=== PATIENT | male | born 1955 | race Caucasian/White ===

== ENCOUNTER 2018-01-10 17:37 | Inpatient (IN) ==
[2018-01-10] MEDS ORDERED: ACETAMINOPHEN 325 MG TABLET PO PRN (18:24)
[2018-01-10] MEDS ORDERED: ONDANSETRON 4 MG/2 ML VIAL IV PRN (18:24)
[2018-01-10] MEDS ORDERED: HEPARIN DRIP 25,000 UNITS/500 ML PREMIX IV SCH (19:30)
[2018-01-10] MEDS ORDERED: MAGNESIUM HYDROXIDE SUSP 30 ML UDCUP PO PRN (20:40)
[2018-01-10 20:58] LABS: Alanine Aminotransferase 16 U/L (16-61); Albumin 2.5 G/DL (3.4-5.0); Alkaline Phosphatase 39 U/L (45-117); Aspartate Amino Transferase 5 U/L (0-37); Bilirubin,Total < 0.39 MG/DL (0.2-1.0); Blood Urea Nitrogen 19 MG/DL (7-18); Calcium 7.8 MG/DL (8.5-10.1); Glucose 353 MG/DL (74-106); Osmolality,Calculated 288.8 MOS/KG (273-304); Potassium 3.8 MMOL/L (3.5-5.1); Sodium 137 MMOL/L (136-145); Total Protein 6.6 G/DL (6.4-8.3)
[2018-01-10 21:01] LABS: Basophils % 0.2 % (0.0-0.8); Eosinophils # 0.1 10*3/uL (0.0-0.87); Eosinophils % 0.6 % (0.00-10.9); Hematocrit 20.6 VOL% (42.0-52.0); Hemoglobin 6.6 GM/DL (14.0-18.0); Immature Granulocytes % 11.6 %; Immature Granulocytes Absolute 1.39 #; Lymphocytes # 2.1 10*3/uL (1.4-4.0); Lymphocytes % 17.3 % (21.2-54.2); Mean Corpuscular Hemoglobin 36 PG (27-34); Mean Corpuscular Volume 110.8 FL (87-102); Monocytes # 1.3 10*3/uL (0.11-0.8); Monocytes % 10.8 % (1.7-12.7); NRBC # 0.05 10*3/uL; Neutrophils # 7.2 10*3/uL (1.4-7.4); Neutrophils % 59.5 % (38.7-73.9); Platelet Count 75 T/CUMM (130-400); Red Blood Count 1.86 MC/CUMM (3.8-5.5); Red Cell Distribution Width 21.1 % (9.3-17.3)
[2018-01-11 02:42] LABS: Basophils % 0.2 % (0.0-0.8); Eosinophils # 0.1 10*3/uL (0.0-0.87); Eosinophils % 0.8 % (0.00-10.9); Hematocrit 21.9 VOL% (42.0-52.0); Hemoglobin 7.1 GM/DL (14.0-18.0); Immature Granulocytes % 11.8 %; Immature Granulocytes Absolute 1.53 #; Lymphocytes # 2.5 10*3/uL (1.4-4.0); Lymphocytes % 19.1 % (21.2-54.2); Mean Corpuscular HGB Conc 32.4 GM/DL (32-36); Mean Corpuscular Hemoglobin 34 PG (27-34); Mean Corpuscular Volume 104.3 FL (87-102); Mean Platelet Volume 13.1 FL (9.6-12.0); Monocytes # 1.3 10*3/uL (0.11-0.8); Monocytes % 10.2 % (1.7-12.7); NRBC # 0.03 10*3/uL; Neutrophils # 7.5 10*3/uL (1.4-7.4); Neutrophils % 57.9 % (38.7-73.9); Platelet Count 75 T/CUMM (130-400)
[2018-01-11 03:16] LABS: Band Neutrophils 8 % (0-10); Lymphocytes 20 % (20-55); Metamyelocytes 11 %; Myelocytes 3 %; Nucleated Red Blood Cells 1 (0-5); Segmented Neutrophils 51 % (50-85); Total Cells Counted 100
[2018-01-11 03:17] LABS: Platelet Estimate Decreased
[2018-01-11 05:36] LABS: Band Neutrophils 8 % (0-10); Eosinophils 1 % (0-10); Hypochromasia 2+; Lymphocytes 17 % (20-55); Metamyelocytes 7 %; Myelocytes 2 %; Nucleated Red Blood Cells 1 (0-5); Platelet Estimate Decreased; Promyelocytes 1 %; Segmented Neutrophils 55 % (50-85); Total Cells Counted 100
[2018-01-11 05:37] LABS: Anisocytosis 2+; Macrocytosis 2+; Ovalocytes 1+; Polychromasia Few
[2018-01-11 09:19] LABS: INR 1.1
[2018-01-11] MEDS ORDERED: HEPARIN 5,000 UNIT/1 ML VIAL ONE (09:49)
[2018-01-11] MEDS: PANTOPRAZOLE 40 MG TABLET PO SCH (10:12)
[2018-01-11] MEDS ORDERED: SODIUM CHLORIDE 0.9% 1,000 ML IV PRN (16:08)
[2018-01-11] MEDS ORDERED: traMADol 50 MG TABLET PO PRN (16:11)
[2018-01-11] MEDS: RIVAROXABAN 15 MG TABLET PO SCH (17:33)
[2018-01-12] MEDS: RIVAROXABAN 15 MG TABLET PO SCH (09:25)
[2018-01-12] MEDS: PANTOPRAZOLE 40 MG TABLET PO SCH (09:25)
[2018-01-12 09:44] LABS: Basophils % 0.3 % (0.0-0.8); Eosinophils # 0.1 10*3/uL (0.0-0.87); Eosinophils % 0.9 % (0.00-10.9); Hematocrit 26.9 VOL% (42.0-52.0); Hemoglobin 8.6 GM/DL (14.0-18.0); Immature Granulocytes % 12.6 %; Immature Granulocytes Absolute 1.42 #; Lymphocytes # 1.6 10*3/uL (1.4-4.0); Lymphocytes % 13.9 % (21.2-54.2); Mean Corpuscular Hemoglobin 33 PG (27-34); Mean Corpuscular Volume 102.7 FL (87-102); Mean Platelet Volume 12.6 FL (9.6-12.0); Monocytes # 1.5 10*3/uL (0.11-0.8); Monocytes % 13.5 % (1.7-12.7); NRBC # 0.02 10*3/uL; Neutrophils # 6.6 10*3/uL (1.4-7.4); Neutrophils % 58.8 % (38.7-73.9); Platelet Count 86 T/CUMM (130-400); Red Blood Count 2.62 MC/CUMM (3.8-5.5); Red Cell Distribution Width 24.5 % (9.3-17.3); White Blood Count 11.2 T/CUMM (4-12)
[2018-01-12 11:49] LABS: Band Neutrophils 1 % (0-10); Lymphocytes 16 % (20-55); Segmented Neutrophils 59 % (50-85); Total Cells Counted 100
[2018-01-12 11:50] LABS: Platelet Estimate Decreased; Polychromasia Slight
[2018-01-12 12:23] VITALS: BP 142/77
== END 2018-01-12 12:48 | disposition home or self-care (01) | DRG 176 ==
LOC: SUATTDRO 17:40 → N.4E 17:40
PROVIDERS: ADMIT Internal Medicine; ATTEND Internal Medicine

== ENCOUNTER 2018-01-21 13:33 | Inpatient (IN) ==
[2018-01-21] MEDS ORDERED: MORPHINE 4 MG/1 ML VIAL IV STA (13:51)
[2018-01-21] MEDS ORDERED: HEPARIN 5,000 UNIT/1 ML VIAL IV ONE (13:51)
[2018-01-21] MEDS ORDERED: NITROGLYCERIN 2% OINT 1 INCH/GM PACK TOP STA (13:51)
[2018-01-21] MEDS ORDERED: ONDANSETRON 4 MG/2 ML VIAL IV STA (13:51)
[2018-01-21] MEDS ORDERED: ASPIRIN 325 MG TABLET PO STA (13:51)
[2018-01-21] MEDS ORDERED: NITROGLYCERIN 2% OINT 1 INCH/GM PACK TOP ONE (13:52)
[2018-01-21] MEDS ORDERED: ONDANSETRON 4 MG/2 ML VIAL ONE (13:52)
[2018-01-21] MEDS ORDERED: MORPHINE 4 MG/1 ML VIAL ONE (13:53)
[2018-01-21] MEDS ORDERED: fentaNYL 100 MCG/2 ML VIAL ONE (14:02)
[2018-01-21] MEDS ORDERED: LIDOCAINE 1% 20 ML VIAL ONE (14:02)
[2018-01-21] MEDS ORDERED: MIDAZOLAM 2 MG/2 ML VIAL ONE (14:02)
[2018-01-21 14:25] LABS: Basophils # 0.1 10*3/uL (0.0-0.2); Basophils % 0.4 % (0.0-0.8); Eosinophils # 0.1 10*3/uL (0.0-0.87); Eosinophils % 0.2 % (0.00-10.9); Hematocrit 27.3 VOL% (42.0-52.0); Hemoglobin 8.6 GM/DL (14.0-18.0); Immature Granulocytes % 26.8 %; Immature Granulocytes Absolute 9.16 #; Lymphocytes # 2.8 10*3/uL (1.4-4.0); Lymphocytes % 8.1 % (21.2-54.2); Mean Corpuscular HGB Conc 31.5 GM/DL (32-36); Mean Corpuscular Hemoglobin 33 PG (27-34); Monocytes # 2.2 10*3/uL (0.11-0.8); Monocytes % 6.4 % (1.7-12.7); NRBC # 0.11 10*3/uL; Neutrophils # 19.8 10*3/uL (1.4-7.4); Neutrophils % 58.1 % (38.7-73.9); Platelet Count 144 T/CUMM (130-400); Red Blood Count 2.65 MC/CUMM (3.8-5.5); Red Cell Distribution Width 21.2 % (9.3-17.3); White Blood Count 34.1 T/CUMM (4-12)
[2018-01-21 14:33] LABS: INR 1.5; PT Patient Result 16.4 SECS; Partial Thromboplastin Time 38.2 SECS (0-40)
[2018-01-21] MEDS ORDERED: HEPARIN 5,000 UNIT/1 ML VIAL ONE (14:35)
[2018-01-21 14:40] LABS: Bilirubin,Total 0.5 MG/DL (0.2-1.0); Osmolality,Calculated 279.2 MOS/KG (273-304); Potassium 3.9 MMOL/L (3.5-5.1); Total Protein 6.4 G/DL (6.4-8.3)
[2018-01-21] MEDS ORDERED: TIROFIBAN 5,000 MCG/100 ML PREMIX IV ONE (15:04)
[2018-01-21] MEDS ORDERED: TICAGRELOR 90 MG TABLET ONE (15:04)
[2018-01-21 15:18] LABS: Band Neutrophils 18 % (0-10); Lymphocytes 11 % (20-55); Metamyelocytes 4 %; Myelocytes 9 %; Nucleated Red Blood Cells 1 (0-5); Segmented Neutrophils 43 % (50-85); Total Cells Counted 100
[2018-01-21 15:24] LABS: Hypochromasia 1+; Poikilocytosis 1+
[2018-01-21 15:25] LABS: Anisocytosis 1+
[2018-01-21 15:27] LABS: Ovalocytes Few; Platelet Estimate Decreased; Tear Drop Cells Few
[2018-01-21] MEDS ORDERED: ACETAMINOPHEN 325 MG TABLET PO PRN (15:47)
[2018-01-21] MEDS ORDERED: ZALEPLON 5 MG CAPSULE PO PRN (15:47)
[2018-01-21] MEDS ORDERED: GLUCAGON 1 MG VIAL IM PRN (15:47)
[2018-01-21] MEDS ORDERED: DEXTROSE 50% 25 GM/50 ML VIAL IV PRN (15:47)
[2018-01-21] MEDS ORDERED: MAGNESIUM SULF RIDER 2 GM in PREMIX 1 EACH IV PRN (15:47)
[2018-01-21] MEDS ORDERED: MAGNESIUM SULF RIDER 4 GM in PREMIX 1 EACH IV PRN (15:47)
[2018-01-21] MEDS ORDERED: ONDANSETRON 4 MG TABLET PO PRN (16:00)
[2018-01-21] MEDS: PANTOPRAZOLE 40 MG TABLET PO SCH (16:28)
[2018-01-21] MEDS: CARVEDILOL 3.125 MG TABLET PO SCH ×2 (16:28→21:29)
[2018-01-21] MEDS: SODIUM CHLORIDE 0.9% 1,000 ML IV SCH ×3 (16:28→21:29)
[2018-01-21] MEDS: INSULIN REGULAR 100 UNIT/ML SUBCUT SCH ×2 (16:28→21:24)
[2018-01-21 17:28] LABS: Risk Ratio 3.76; VLDL CHOLESTEROL 18.8 MG/DL
[2018-01-21 18:09] LABS: Troponin I 0.033 NG/ML (0.00-0.045)
[2018-01-21] MEDS ORDERED: ROSUVASTATIN 20 MG TABLET PO SCH (21:00)
[2018-01-21] MEDS: ROSUVASTATIN 10 MG TABLET PO SCH (21:23)
[2018-01-21] MEDS: TICAGRELOR 90 MG TABLET PO SCH (21:24)
[2018-01-22] MEDS: ROSUVASTATIN 10 MG TABLET PO SCH ×2 (01:39→21:45)
[2018-01-22 02:08] LABS: Basophils % 0.2 % (0.0-0.8); Eosinophils % 0.2 % (0.00-10.9); Hematocrit 21.8 VOL% (42.0-52.0); Hemoglobin 6.9 GM/DL (14.0-18.0); Immature Granulocytes % 26.8 %; Immature Granulocytes Absolute 5.24 #; Lymphocytes # 2.3 10*3/uL (1.4-4.0); Lymphocytes % 11.5 % (21.2-54.2); Mean Corpuscular HGB Conc 31.7 GM/DL (32-36); Mean Corpuscular Hemoglobin 33 PG (27-34); Mean Corpuscular Volume 103.3 FL (87-102); Mean Platelet Volume 12.5 FL (9.6-12.0); Monocytes # 1.1 10*3/uL (0.11-0.8); Monocytes % 5.8 % (1.7-12.7); NRBC # 0.09 10*3/uL; Neutrophils # 10.8 10*3/uL (1.4-7.4); Neutrophils % 55.5 % (38.7-73.9); Platelet Count 103 T/CUMM (130-400); Red Blood Count 2.11 MC/CUMM (3.8-5.5); Red Cell Distribution Width 21.3 % (9.3-17.3); White Blood Count 19.5 T/CUMM (4-12)
[2018-01-22 02:55] LABS: Albumin 1.6 G/DL (3.4-5.0); Bilirubin,Total 0.6 MG/DL (0.2-1.0); Calcium 7.6 MG/DL (8.5-10.1); Osmolality,Calculated 284.5 MOS/KG (273-304); Potassium 3.4 MMOL/L (3.5-5.1); Total Protein 6.1 G/DL (6.4-8.3); Troponin I 0.095 NG/ML (0.00-0.045)
[2018-01-22 03:00] LABS: Thyroid Stimulating Hormone 4.26 uIU/ml (0.358-3.74)
[2018-01-22 03:38] LABS: Band Neutrophils 2 % (0-10); Lymphocytes 29 % (20-55); Metamyelocytes 1 %; Platelet Estimate Decreased; Polychromasia Few; Segmented Neutrophils 54 % (50-85); Total Cells Counted 100
[2018-01-22] MEDS: CARVEDILOL 3.125 MG TABLET PO SCH (03:50)
[2018-01-22] MEDS ORDERED: DEXTROSE 50% 25 GM/50 ML VIAL IV PRN (07:43)
[2018-01-22] MEDS ORDERED: GLUCAGON 1 MG VIAL IM PRN (07:43)
[2018-01-22] MEDS ORDERED: SODIUM CHLORIDE 0.9% 1,000 ML IV PRN (07:47)
[2018-01-22] MEDS ORDERED: LACTULOSE 20 GM/30 ML UDCUP PO PRN (08:54)
[2018-01-22] MEDS ORDERED: ASPIRIN EC 81 MG TABLET PO SCH (09:00)
[2018-01-22] MEDS: INSULIN REGULAR 100 UNIT/ML SUBCUT SCH ×4 (09:56→21:46)
[2018-01-22] MEDS: PSYLLIUM POWDER 3.7 GM/PACK PO SCH (09:57)
[2018-01-22] MEDS: PANTOPRAZOLE 40 MG TABLET PO SCH (09:57)
[2018-01-22] MEDS: POLYETHYLENE GLYCOL POWDER 17 GM PACK PO SCH (09:57)
[2018-01-22] MEDS: TICAGRELOR 90 MG TABLET PO SCH ×2 (09:57→21:46)
[2018-01-22] MEDS: LEVOFLOXACIN 500 MG TABLET PO SCH (09:57)
[2018-01-22] MEDS: POTASSIUM CHLORIDE 20 MEQ TABLET PO PRN ×2 (09:58→12:25)
[2018-01-22] MEDS: METOPROLOL TARTRATE 25 MG TABLET PO SCH ×2 (11:21→21:46)
[2018-01-22] MEDS ORDERED: MAGNESIUM CITRATE 300 ML BOTTLE PO ONE (15:47)
[2018-01-22] MEDS: RIVAROXABAN 15 MG TABLET PO SCH (17:06)
[2018-01-22] MEDS ORDERED: INSULIN GLARGINE 100 UNIT/ML SUBCUT SCH (21:00)
[2018-01-22] MEDS: GABAPENTIN 100 MG CAPSULE PO SCH (21:45)
[2018-01-22] MEDS: INSULIN GLARGINE 100 UNIT/ML SUBCUT SCH (21:46)
[2018-01-23 05:28] LABS: Basophils # 0.1 10*3/uL (0.0-0.2); Basophils % 0.4 % (0.0-0.8); Eosinophils % 0.2 % (0.00-10.9); Hematocrit 26.5 VOL% (42.0-52.0); Immature Granulocytes Absolute 6.35 #; Lymphocytes # 1.8 10*3/uL (1.4-4.0); Lymphocytes % 7.6 % (21.2-54.2); Mean Corpuscular HGB Conc 32.5 GM/DL (32-36); Mean Corpuscular Hemoglobin 32 PG (27-34); Mean Corpuscular Volume 97.1 FL (87-102); Mean Platelet Volume 11.7 FL (9.6-12.0); Monocytes # 1.4 10*3/uL (0.11-0.8); Monocytes % 5.8 % (1.7-12.7); NRBC # 0.05 10*3/uL; Neutrophils # 13.9 10*3/uL (1.4-7.4); Red Cell Distribution Width 21.7 % (9.3-17.3); White Blood Count 23.5 T/CUMM (4-12)
[2018-01-23 05:29] LABS: Hemoglobin 8.6 GM/DL (14.0-18.0); Red Blood Count 2.73 MC/CUMM (3.8-5.5)
[2018-01-23 05:30] LABS: Platelet Count 86 T/CUMM (130-400)
[2018-01-23 05:55] LABS: Albumin 1.7 G/DL (3.4-5.0); Bilirubin,Total 0.8 MG/DL (0.2-1.0); Calcium 7.8 MG/DL (8.5-10.1); Osmolality,Calculated 288.7 MOS/KG (273-304); Potassium 3.8 MMOL/L (3.5-5.1); Total Protein 6.3 G/DL (6.4-8.3)
[2018-01-23 05:59] LABS: Band Neutrophils 12 % (0-10); Eosinophils 1 % (0-10); Lymphocytes 12 % (20-55); Myelocytes 2 %; Segmented Neutrophils 68 % (50-85); Total Cells Counted 100
[2018-01-23 06:00] LABS: Hypochromasia 1+; Misc Morphology FEW LAR; Ovalocytes Slight; Platelet Estimate Decreased
[2018-01-23] MEDS ORDERED: SODIUM CHLORIDE 0.9% 500 ML IV ONE (07:59)
[2018-01-23] MEDS: LACTULOSE 20 GM/30 ML UDCUP PO SCH ×3 (09:09→12:37)
[2018-01-23] MEDS: INSULIN REGULAR 100 UNIT/ML SUBCUT SCH ×4 (09:10→21:13)
[2018-01-23] MEDS: RIVAROXABAN 10 MG TABLET PO SCH (09:11)
[2018-01-23] MEDS: PSYLLIUM POWDER 3.7 GM/PACK PO SCH (09:11)
[2018-01-23] MEDS: PANTOPRAZOLE 40 MG TABLET PO SCH (09:11)
[2018-01-23] MEDS: LEVOFLOXACIN 500 MG TABLET PO SCH (09:11)
[2018-01-23] MEDS: TICAGRELOR 90 MG TABLET PO SCH ×2 (09:11→21:13)
[2018-01-23] MEDS: METOPROLOL TARTRATE 25 MG TABLET PO SCH ×2 (09:11→21:13)
[2018-01-23] MEDS: GABAPENTIN 100 MG CAPSULE PO SCH ×3 (09:11→21:13)
[2018-01-23] MEDS: POLYETHYLENE GLYCOL POWDER 17 GM PACK PO SCH (09:12)
[2018-01-23] MEDS: SODIUM CHLORIDE 0.9% 1,000 ML IV SCH ×2 (10:00→18:14)
[2018-01-23] MEDS: RIVAROXABAN 15 MG TABLET PO SCH (10:02)
[2018-01-23] MEDS ORDERED: SODIUM PHOSPHATE ENEMA 133 ML BOTTLE RECTAL ONE (12:05)
[2018-01-23] MEDS: ROSUVASTATIN 10 MG TABLET PO SCH (21:13)
[2018-01-23] MEDS: INSULIN GLARGINE 100 UNIT/ML SUBCUT SCH (21:20)
[2018-01-24 04:40] LABS: Basophils # 0.1 10*3/uL (0.0-0.2); Basophils % 0.3 % (0.0-0.8); Eosinophils # 0.1 10*3/uL (0.0-0.87); Eosinophils % 0.3 % (0.00-10.9); Hematocrit 27.8 VOL% (42.0-52.0); Hemoglobin 8.9 GM/DL (14.0-18.0); Immature Granulocytes % 26.9 %; Immature Granulocytes Absolute 5.47 #; Lymphocytes # 1.8 10*3/uL (1.4-4.0); Lymphocytes % 8.8 % (21.2-54.2); Mean Corpuscular Hemoglobin 32 PG (27-34); Mean Corpuscular Volume 98.6 FL (87-102); Mean Platelet Volume 12.4 FL (9.6-12.0); Monocytes # 1.2 10*3/uL (0.11-0.8); NRBC # 0.03 10*3/uL; Neutrophils # 11.8 10*3/uL (1.4-7.4); Neutrophils % 57.7 % (38.7-73.9); Red Blood Count 2.82 MC/CUMM (3.8-5.5); Red Cell Distribution Width 21.1 % (9.3-17.3); White Blood Count 20.4 T/CUMM (4-12)
[2018-01-24 04:42] LABS: Platelet Count 96 T/CUMM (130-400)
[2018-01-24 04:44] LABS: Calcium 7.5 MG/DL (8.5-10.1); Osmolality,Calculated 286.5 MOS/KG (273-304); Potassium 3.2 MMOL/L (3.5-5.1)
[2018-01-24 05:09] LABS: Band Neutrophils 14 % (0-10); Eosinophils 2 % (0-10); Lymphocytes 21 % (20-55); Metamyelocytes 2 %; Myelocytes 8 %; Segmented Neutrophils 48 % (50-85)
[2018-01-24 05:10] LABS: Platelet Estimate Decreased
[2018-01-24 05:11] LABS: Atypical Lymphocytes Few; Hypochromasia 1+
[2018-01-24 05:12] LABS: Total Cells Counted 100
[2018-01-24] MEDS: SODIUM CHLORIDE 0.9% 1,000 ML IV SCH (05:28)
[2018-01-24] MEDS: LACTULOSE 20 GM/30 ML UDCUP PO SCH ×3 (09:14→11:40)
[2018-01-24] MEDS: INSULIN REGULAR 100 UNIT/ML SUBCUT SCH ×2 (09:14→12:36)
[2018-01-24] MEDS: POLYETHYLENE GLYCOL POWDER 17 GM PACK PO SCH (09:15)
[2018-01-24] MEDS: PSYLLIUM POWDER 3.7 GM/PACK PO SCH (09:15)
[2018-01-24] MEDS: METOPROLOL TARTRATE 25 MG TABLET PO SCH (09:15)
[2018-01-24] MEDS: PANTOPRAZOLE 40 MG TABLET PO SCH (09:16)
[2018-01-24] MEDS: GABAPENTIN 100 MG CAPSULE PO SCH (09:16)
[2018-01-24] MEDS: TICAGRELOR 90 MG TABLET PO SCH (09:16)
[2018-01-24] MEDS: RIVAROXABAN 10 MG TABLET PO SCH (09:16)
[2018-01-24] MEDS: LEVOFLOXACIN 500 MG TABLET PO SCH (09:16)
[2018-01-24] MEDS ORDERED: POTASSIUM CHLORIDE 20 MEQ TABLET PO ONE (11:10)
[2018-01-24] MEDS ORDERED: CLOPIDOGREL 300 MG TABLET PO ONE (11:11)
[2018-01-24 12:16] VITALS: BP 130/76
[2018-01-25] MEDS ORDERED: CLOPIDOGREL 75 MG TABLET PO SCH (09:00)
== END 2018-01-24 15:00 | disposition home or self-care (01) | DRG 247 ==
LOC: EDUNIT# → EDBD → N.ED 13:33 → N.CC 14:03 → N.TELEN 01-22 13:42
PROVIDERS: ADMIT Internal Medicine Cardiovascular Disease; ATTEND Internal Medicine Cardiovascular Disease
PROC: CLCCHCL (ICD-10-PCS; 2018-01-21 14:45)

== ENCOUNTER 2018-02-06 16:52 | Inpatient (IN) ==
[2018-02-06 18:22] LABS: Basophils # 0.1 10*3/uL (0.0-0.2); Basophils % 0.2 % (0.0-0.8); Eosinophils # 0.1 10*3/uL (0.0-0.87); Eosinophils % 0.5 % (0.00-10.9); Hematocrit 24.9 VOL% (42.0-52.0); Hemoglobin 7.6 GM/DL (14.0-18.0); Immature Granulocytes Absolute 5.95 #; Lymphocytes # 3.4 10*3/uL (1.4-4.0); Lymphocytes % 15.8 % (21.2-54.2); Mean Corpuscular HGB Conc 30.5 GM/DL (32-36); Mean Corpuscular Hemoglobin 31 PG (27-34); Mean Corpuscular Volume 101.2 FL (87-102); Monocytes # 1.7 10*3/uL (0.11-0.8); Monocytes % 8.2 % (1.7-12.7); NRBC # 0.07 10*3/uL; Neutrophils % 47.3 % (38.7-73.9); Platelet Count 180 T/CUMM (130-400); Red Blood Count 2.46 MC/CUMM (3.8-5.5); Red Cell Distribution Width 19.2 % (9.3-17.3); White Blood Count 21.2 T/CUMM (4-12)
[2018-02-06 18:33] LABS: INR 1.2; PT Patient Result 13.3 SECS
[2018-02-06 18:47] LABS: Alanine Aminotransferase 30 U/L (16-61); Albumin 2.7 G/DL (3.4-5.0); Alkaline Phosphatase 71 U/L (45-117); Aspartate Amino Transferase 15 U/L (0-37); Bilirubin,Total < 0.39 MG/DL (0.2-1.0); Blood Urea Nitrogen 21 MG/DL (7-18); Calcium 8.6 MG/DL (8.5-10.1); Glucose 211 MG/DL (74-106); Potassium 3.9 MMOL/L (3.5-5.1); Sodium 136 MMOL/L (136-145)
[2018-02-06 18:57] LABS: Band Neutrophils 10 % (0-10); Lymphocytes 16 % (20-55); Metamyelocytes 11 %; Myelocytes 2 %; Nucleated Red Blood Cells 1 (0-5); Segmented Neutrophils 49 % (50-85); Total Cells Counted 100
[2018-02-06 18:58] LABS: Anisocytosis 1+; Hypochromasia 1+
[2018-02-06 18:59] LABS: Platelet Estimate Adequate
[2018-02-06] MEDS ORDERED: GLUCAGON 1 MG VIAL IM PRN (18:59)
[2018-02-06] MEDS ORDERED: DEXTROSE 50% 25 GM/50 ML VIAL IV PRN (18:59)
[2018-02-06] MEDS ORDERED: HEPARIN 5,000 UNIT/1 ML VIAL IV ONE (19:04)
[2018-02-06] MEDS: ROSUVASTATIN 10 MG TABLET PO SCH (21:02)
[2018-02-06] MEDS: GABAPENTIN 100 MG CAPSULE PO SCH (21:02)
[2018-02-06] MEDS: INSULIN REGULAR 100 UNIT/ML SUBCUT SCH (21:02)
[2018-02-06] MEDS: HEPARIN DRIP 25,000 UNITS/500 ML PREMIX IV SCH (22:00)
[2018-02-06 23:03] LABS: Apearance,Urine CLOUDY (Clear); Bilirubin,Urine Negative (Negative); Blood, Urine Moderate mg/dL (Negative); Glucose,Urine (UA) Negative (Negative); Hyaline Casts,Urine 3 /LPF (0-3); Ketones,Urine Negative (Negative); Mucus,Urine Few /LPF (Occasional); Nitrite,Urine Negative (Negative); Protein,Urine Negative; RBC,Urine 18 /HPF (0-4); Squamous Epithelial Cell,Urine Occasional /HPF (0-10); Uric Acid Crystals,Urine Few /HPF (<1); Urine Color Yellow (Yellow); Urine Specific Gravity 1.016 (1.001-1.035); Urine Urobilinogen < 2.0 EU/DL (0.2-1.0); WBC,Urine 5 /HPF (0-6)
[2018-02-07 05:18] LABS: Basophils % 0.2 % (0.0-0.8); Eosinophils # 0.1 10*3/uL (0.0-0.87); Eosinophils % 0.7 % (0.00-10.9); Hematocrit 20.7 VOL% (42.0-52.0); Immature Granulocytes Absolute 4.41 #; Lymphocytes # 3.1 10*3/uL (1.4-4.0); Lymphocytes % 16.9 % (21.2-54.2); Mean Corpuscular HGB Conc 30.4 GM/DL (32-36); Mean Corpuscular Hemoglobin 30 PG (27-34); Mean Corpuscular Volume 99.5 FL (87-102); Monocytes # 2.1 10*3/uL (0.11-0.8); Monocytes % 11.2 % (1.7-12.7); NRBC # 0.03 10*3/uL; Neutrophils # 8.7 10*3/uL (1.4-7.4); Platelet Count 166 T/CUMM (130-400); Red Blood Count 2.08 MC/CUMM (3.8-5.5); Red Cell Distribution Width 19.4 % (9.3-17.3); White Blood Count 18.4 T/CUMM (4-12)
[2018-02-07 05:29] LABS: Hemoglobin 6.3 GM/DL (14.0-18.0)
[2018-02-07 05:34] LABS: Calcium 8.1 MG/DL (8.5-10.1); Osmolality,Calculated 285.3 MOS/KG (273-304); Potassium 3.7 MMOL/L (3.5-5.1)
[2018-02-07 06:02] LABS: Band Neutrophils 3 % (0-10); Eosinophils 1 % (0-10); Lymphocytes 34 % (20-55); Nucleated Red Blood Cells 1 (0-5); Segmented Neutrophils 45 % (50-85); Total Cells Counted 100
[2018-02-07 06:04] LABS: Anisocytosis 1+; Platelet Estimate Adequate; Polychromasia 1+
[2018-02-07 07:05] LABS: Hematocrit 21.7 VOL% (42.0-52.0); Hemoglobin 6.7 GM/DL (14.0-18.0)
[2018-02-07] MEDS ORDERED: SODIUM CHLORIDE 0.9% 1,000 ML IV PRN (07:34)
[2018-02-07] MEDS: INSULIN REGULAR 100 UNIT/ML SUBCUT SCH ×4 (07:54→20:02)
[2018-02-07] MEDS ORDERED: DIAZEPAM 5 MG TABLET PO ONE (08:36)
[2018-02-07] MEDS ORDERED: ASPIRIN EC 81 MG TABLET PO SCH (09:00)
[2018-02-07] MEDS: GABAPENTIN 100 MG CAPSULE PO SCH ×4 (10:07→20:02)
[2018-02-07] MEDS: METOPROLOL SUCCINATE XL 25 MG TABLET PO SCH (10:07)
[2018-02-07] MEDS: PANTOPRAZOLE 40 MG TABLET PO SCH (10:07)
[2018-02-07] MEDS ORDERED: NITROGLYCERIN SL 0.4 MG TABLET SL PRN (11:08)
[2018-02-07] MEDS: HEPARIN DRIP 25,000 UNITS/500 ML PREMIX IV SCH ×2 (14:22→20:01)
[2018-02-07] MEDS: ACETAMINOPHEN 325 MG TABLET PO PRN (17:45)
[2018-02-07] MEDS: ROSUVASTATIN 10 MG TABLET PO SCH (20:02)
[2018-02-08 05:14] LABS: Basophils # 0.1 10*3/uL (0.0-0.2); Basophils % 0.3 % (0.0-0.8); Eosinophils # 0.1 10*3/uL (0.0-0.87); Eosinophils % 0.4 % (0.00-10.9); Hematocrit 26.7 VOL% (42.0-52.0); Hemoglobin 8.5 GM/DL (14.0-18.0); Immature Granulocytes Absolute 4.65 #; Lymphocytes # 2.8 10*3/uL (1.4-4.0); Lymphocytes % 13.7 % (21.2-54.2); Mean Corpuscular HGB Conc 31.8 GM/DL (32-36); Mean Corpuscular Hemoglobin 31 PG (27-34); Mean Corpuscular Volume 95.7 FL (87-102); Mean Platelet Volume 12.6 FL (9.6-12.0); Monocytes # 2.2 10*3/uL (0.11-0.8); Monocytes % 10.9 % (1.7-12.7); NRBC # 0.04 10*3/uL; Neutrophils # 10.5 10*3/uL (1.4-7.4); Neutrophils % 51.7 % (38.7-73.9); Platelet Count 91 T/CUMM (130-400); Red Blood Count 2.79 MC/CUMM (3.8-5.5); Red Cell Distribution Width 19.3 % (9.3-17.3); White Blood Count 20.3 T/CUMM (4-12)
[2018-02-08 05:30] LABS: Osmolality,Calculated 283.5 MOS/KG (273-304); Potassium 3.4 MMOL/L (3.5-5.1)
[2018-02-08 05:46] LABS: Band Neutrophils 19 % (0-10); Hypochromasia 1+; Lymphocytes 20 % (20-55); Metamyelocytes 4 %; Myelocytes 7 %; Nucleated Red Blood Cells 1 (0-5); Ovalocytes Slight; Platelet Estimate Decreased; Segmented Neutrophils 38 % (50-85); Total Cells Counted 100
[2018-02-08 05:47] LABS: Atypical Lymphocytes Few
[2018-02-08] MEDS: METOPROLOL SUCCINATE XL 25 MG TABLET PO SCH (09:19)
[2018-02-08] MEDS: INSULIN REGULAR 100 UNIT/ML SUBCUT SCH ×4 (09:19→21:07)
[2018-02-08] MEDS: PANTOPRAZOLE 40 MG TABLET PO SCH (09:19)
[2018-02-08] MEDS: CLOPIDOGREL 75 MG TABLET PO SCH (09:19)
[2018-02-08] MEDS ORDERED: SODIUM CHLORIDE 0.9% 1,000 ML IV PRN (10:19)
[2018-02-08] MEDS ORDERED: MAGNESIUM CITRATE 300 ML BOTTLE PO ONE (10:21)
[2018-02-08] MEDS: RIVAROXABAN 20 MG TABLET PO SCH (11:56)
[2018-02-08] MEDS: POLYETHYLENE GLYCOL POWDER 17 GM PACK PO SCH ×2 (11:56→21:10)
[2018-02-08] MEDS: DOCUSATE SODIUM 100 MG CAPSULE PO SCH ×2 (11:56→21:10)
[2018-02-08] MEDS: ACETAMINOPHEN 325 MG TABLET PO PRN (12:01)
[2018-02-08] MEDS: LACTULOSE 20 GM/30 ML UDCUP PO SCH (13:04)
[2018-02-08] MEDS: GABAPENTIN 100 MG CAPSULE PO SCH ×2 (14:54→21:07)
[2018-02-08] MEDS: MORPHINE 4 MG/1 ML VIAL IV PRN ×2 (14:56→19:21)
[2018-02-08] MEDS: PSYLLIUM POWDER 3.7 GM/PACK PO SCH (18:23)
[2018-02-08] MEDS: POTASSIUM CHLORIDE 20 MEQ TABLET PO PRN ×3 (19:26→23:25)
[2018-02-08] MEDS ORDERED: BISACODYL 5 MG TABLET PO SCH (21:00)
[2018-02-08] MEDS: traMADol 50 MG TABLET PO PRN (23:24)
[2018-02-09 05:23] LABS: Basophils # 0.1 10*3/uL (0.0-0.2); Basophils % 0.5 % (0.0-0.8); Eosinophils # 0.1 10*3/uL (0.0-0.87); Eosinophils % 0.2 % (0.00-10.9); Hemoglobin 9.6 GM/DL (14.0-18.0); Immature Granulocytes % 17.7 %; Immature Granulocytes Absolute 4.98 #; Lymphocytes # 2.2 10*3/uL (1.4-4.0); Lymphocytes % 7.8 % (21.2-54.2); Mean Corpuscular Hemoglobin 30 PG (27-34); Mean Corpuscular Volume 93.5 FL (87-102); Mean Platelet Volume 12.8 FL (9.6-12.0); Monocytes # 4.6 10*3/uL (0.11-0.8); Monocytes % 16.4 % (1.7-12.7); NRBC # 0.04 10*3/uL; Neutrophils # 16.1 10*3/uL (1.4-7.4); Neutrophils % 57.4 % (38.7-73.9); Platelet Count 85 T/CUMM (130-400); Red Blood Count 3.21 MC/CUMM (3.8-5.5); Red Cell Distribution Width 19.9 % (9.3-17.3); White Blood Count 28.1 T/CUMM (4-12)
[2018-02-09] MEDS: traMADol 50 MG TABLET PO PRN (05:33)
[2018-02-09 05:55] LABS: Band Neutrophils 4 % (0-10); Calcium 8.1 MG/DL (8.5-10.1); Lymphocytes 14 % (20-55); Metamyelocytes 2 %; Nucleated Red Blood Cells 3 (0-5); Platelet Estimate Decreased; Polychromasia Few; Segmented Neutrophils 67 % (50-85); Total Cells Counted 100
[2018-02-09 05:56] LABS: Osmolality,Calculated 278.8 MOS/KG (273-304); Potassium 4.4 MMOL/L (3.5-5.1)
[2018-02-09] MEDS: ONDANSETRON 4 MG/2 ML VIAL IV PRN ×2 (08:25→17:11)
[2018-02-09] MEDS: MORPHINE 4 MG/1 ML VIAL IV PRN (08:30)
[2018-02-09] MEDS: GABAPENTIN 100 MG CAPSULE PO SCH ×3 (08:32→21:21)
[2018-02-09] MEDS: DOCUSATE SODIUM 100 MG CAPSULE PO SCH ×2 (08:32→21:21)
[2018-02-09] MEDS: RIVAROXABAN 20 MG TABLET PO SCH (08:32)
[2018-02-09] MEDS: POLYETHYLENE GLYCOL POWDER 17 GM PACK PO SCH ×3 (08:32→21:21)
[2018-02-09] MEDS: PANTOPRAZOLE 40 MG TABLET PO SCH (08:33)
[2018-02-09] MEDS: CLOPIDOGREL 75 MG TABLET PO SCH (08:33)
[2018-02-09] MEDS: METOPROLOL SUCCINATE XL 25 MG TABLET PO SCH (08:33)
[2018-02-09] MEDS: INSULIN REGULAR 100 UNIT/ML SUBCUT SCH ×4 (08:34→21:26)
[2018-02-09] MEDS: PSYLLIUM POWDER 3.7 GM/PACK PO SCH (08:34)
[2018-02-09] MEDS: CEFTAROLINE 600 MG in SODIUM CHLORIDE 0.9% 100 ML IV SCH ×2 (11:06→22:52)
[2018-02-09] MEDS: ACETAMINOPHEN/CODEINE 300-30 MG TABLET PO PRN (17:10)
[2018-02-10] MEDS: ONDANSETRON 4 MG/2 ML VIAL IV PRN ×4 (01:03→17:53)
[2018-02-10] MEDS: ACETAMINOPHEN 325 MG TABLET PO PRN (01:03)
[2018-02-10 06:01] LABS: Basophils # 0.1 10*3/uL (0.0-0.2); Basophils % 0.4 % (0.0-0.8); Eosinophils % 0.1 % (0.00-10.9); Hematocrit 29.6 VOL% (42.0-52.0); Hemoglobin 9.3 GM/DL (14.0-18.0); Immature Granulocytes % 13.7 %; Lymphocytes % 6.9 % (21.2-54.2); Mean Corpuscular HGB Conc 31.4 GM/DL (32-36); Mean Corpuscular Hemoglobin 30 PG (27-34); Mean Corpuscular Volume 94.9 FL (87-102); Mean Platelet Volume 13.3 FL (9.6-12.0); Monocytes % 17.2 % (1.7-12.7); NRBC # 0.04 10*3/uL; Neutrophils % 61.7 % (38.7-73.9); Platelet Count 57 T/CUMM (130-400); Red Blood Count 3.12 MC/CUMM (3.8-5.5); Red Cell Distribution Width 19.1 % (9.3-17.3); White Blood Count 29.2 T/CUMM (4-12)
[2018-02-10 06:33] LABS: Calcium 8.3 MG/DL (8.5-10.1); Osmolality,Calculated 275.1 MOS/KG (273-304); Potassium 4.3 MMOL/L (3.5-5.1)
[2018-02-10] MEDS: RIVAROXABAN 20 MG TABLET PO SCH (08:52)
[2018-02-10] MEDS: PANTOPRAZOLE 40 MG TABLET PO SCH (08:52)
[2018-02-10] MEDS: DOCUSATE SODIUM 100 MG CAPSULE PO SCH ×2 (08:52→21:00)
[2018-02-10] MEDS: ACETAMINOPHEN/CODEINE 300-30 MG TABLET PO PRN ×2 (08:52→17:50)
[2018-02-10] MEDS: CLOPIDOGREL 75 MG TABLET PO SCH (08:52)
[2018-02-10] MEDS: POLYETHYLENE GLYCOL POWDER 17 GM PACK PO SCH ×2 (08:53→21:00)
[2018-02-10] MEDS: GABAPENTIN 100 MG CAPSULE PO SCH (08:53)
[2018-02-10] MEDS: PSYLLIUM POWDER 3.7 GM/PACK PO SCH (08:53)
[2018-02-10] MEDS: INSULIN REGULAR 100 UNIT/ML SUBCUT SCH ×4 (08:56→20:59)
[2018-02-10] MEDS ORDERED: BENZOCAINE/MENTHOL LOZENGE 18/BOX PO PRN (09:29)
[2018-02-10 09:54] LABS: Band Neutrophils 24 % (0-10); Lymphocytes 13 % (20-55); Platelet Estimate Decreased; Polychromasia Slight; Segmented Neutrophils 52 % (50-85); Total Cells Counted 100
[2018-02-10] MEDS: METOPROLOL SUCCINATE XL 25 MG TABLET PO SCH (10:00)
[2018-02-10] MEDS: CEFTAROLINE 600 MG in SODIUM CHLORIDE 0.9% 100 ML IV SCH ×2 (10:17→21:00)
[2018-02-10] MEDS: GABAPENTIN 300 MG CAPSULE PO SCH (21:00)
[2018-02-11 06:01] LABS: Basophils # 0.1 10*3/uL (0.0-0.2); Basophils % 0.3 % (0.0-0.8); Hematocrit 27.8 VOL% (42.0-52.0); Hemoglobin 8.7 GM/DL (14.0-18.0); Immature Granulocytes % 12.6 %; Immature Granulocytes Absolute 4.44 #; Lymphocytes # 1.8 10*3/uL (1.4-4.0); Mean Corpuscular HGB Conc 31.3 GM/DL (32-36); Mean Corpuscular Hemoglobin 30 PG (27-34); Mean Corpuscular Volume 95.5 FL (87-102); Mean Platelet Volume 12.9 FL (9.6-12.0); Monocytes # 6.8 10*3/uL (0.11-0.8); Monocytes % 19.3 % (1.7-12.7); NRBC # 0.05 10*3/uL; Neutrophils # 22.1 10*3/uL (1.4-7.4); Neutrophils % 62.8 % (38.7-73.9); Red Blood Count 2.91 MC/CUMM (3.8-5.5); Red Cell Distribution Width 18.8 % (9.3-17.3); White Blood Count 35.2 T/CUMM (4-12)
[2018-02-11 06:04] LABS: Platelet Count 92 T/CUMM (130-400)
[2018-02-11 06:20] LABS: Calcium 8.4 MG/DL (8.5-10.1); Osmolality,Calculated 278.2 MOS/KG (273-304); Potassium 4.7 MMOL/L (3.5-5.1)
[2018-02-11 06:23] LABS: Albumin 2.1 G/DL (3.4-5.0); Bilirubin,Direct 0.2 MG/DL (0.0-0.20); Bilirubin,Indirect 0.8 MG/DL (0.0-1.0); Total Protein 6.4 G/DL (6.4-8.3)
[2018-02-11 06:27] LABS: Band Neutrophils 6 % (0-10); Hypochromasia 1+; Lymphocytes 3 % (20-55); Ovalocytes Slight; Platelet Estimate Decreased; Segmented Neutrophils 74 % (50-85); Total Cells Counted 100
[2018-02-11] MEDS ORDERED: FLUCONAZOLE INJ 200 MG in PREMIX 1 EACH IV SCH (08:00)
[2018-02-11] MEDS: INSULIN REGULAR 100 UNIT/ML SUBCUT SCH ×4 (10:14→21:06)
[2018-02-11] MEDS: CEFTAROLINE 600 MG in SODIUM CHLORIDE 0.9% 100 ML IV SCH ×2 (10:46→21:14)
[2018-02-11] MEDS ORDERED: ETOMIDATE 20 MG/10 ML VIAL IV ONE (13:30)
[2018-02-11] MEDS ORDERED: PHENYLEPHRINE 1 MG/10 ML SYRINGE IV ONE (13:30)
[2018-02-11] MEDS ORDERED: LIDOCAINE 2% 5 ML VIAL ONE (13:30)
[2018-02-11] MEDS ORDERED: PROPOFOL 200 MG/20 ML VIAL IV ONE (13:30)
[2018-02-11] MEDS: POLYETHYLENE GLYCOL POWDER 17 GM PACK PO SCH ×2 (14:18→20:39)
[2018-02-11] MEDS: GABAPENTIN 300 MG CAPSULE PO SCH (14:18)
[2018-02-11] MEDS: DOCUSATE SODIUM 100 MG CAPSULE PO SCH ×2 (14:18→21:07)
[2018-02-11] MEDS: ONDANSETRON 4 MG/2 ML VIAL IV PRN ×2 (15:09→21:14)
[2018-02-11] MEDS: METOPROLOL SUCCINATE XL 25 MG TABLET PO SCH (16:35)
[2018-02-11] MEDS: PSYLLIUM POWDER 3.7 GM/PACK PO SCH (16:35)
[2018-02-11] MEDS: CLOPIDOGREL 75 MG TABLET PO SCH (17:19)
[2018-02-11] MEDS: RIVAROXABAN 20 MG TABLET PO SCH (17:19)
[2018-02-11] MEDS: PANTOPRAZOLE 40 MG TABLET PO SCH (17:19)
[2018-02-12 05:57] LABS: Basophils # 0.1 10*3/uL (0.0-0.2); Basophils % 0.3 % (0.0-0.8); Hematocrit 26.5 VOL% (42.0-52.0); Hemoglobin 8.3 GM/DL (14.0-18.0); Immature Granulocytes % 15.3 %; Lymphocytes # 1.8 10*3/uL (1.4-4.0); Lymphocytes % 5.6 % (21.2-54.2); Mean Corpuscular HGB Conc 31.3 GM/DL (32-36); Mean Corpuscular Hemoglobin 30 PG (27-34); Mean Corpuscular Volume 95.3 FL (87-102); Mean Platelet Volume 13.1 FL (9.6-12.0); Monocytes # 5.5 10*3/uL (0.11-0.8); Monocytes % 17.4 % (1.7-12.7); NRBC # 0.04 10*3/uL; Neutrophils # 19.3 10*3/uL (1.4-7.4); Neutrophils % 61.4 % (38.7-73.9); Platelet Count 86 T/CUMM (130-400); Red Blood Count 2.78 MC/CUMM (3.8-5.5); Red Cell Distribution Width 18.7 % (9.3-17.3); White Blood Count 31.5 T/CUMM (4-12)
[2018-02-12 06:09] LABS: Calcium 8.2 MG/DL (8.5-10.1); Osmolality,Calculated 293.8 MOS/KG (273-304); Potassium 4.8 MMOL/L (3.5-5.1)
[2018-02-12 06:11] LABS: Risk Ratio 2.64
[2018-02-12 06:14] LABS: Bilirubin,Total 0.9 MG/DL (0.2-1.0); Calcium 8.2 MG/DL (8.5-10.1); Potassium 4.7 MMOL/L (3.5-5.1); Total Protein 6.9 G/DL (6.4-8.3)
[2018-02-12 06:23] LABS: Band Neutrophils 12 % (0-10); Hypochromasia 1+; Lymphocytes 6 % (20-55); Myelocytes 4 %; Ovalocytes Slight; Platelet Estimate Decreased; Segmented Neutrophils 59 % (50-85); Total Cells Counted 100
[2018-02-12] MEDS ORDERED: SODIUM CHLORIDE 0.9% 1,000 ML IV PRN (07:58)
[2018-02-12] MEDS ORDERED: SODIUM CHLORIDE 0.9% 500 ML IV ONE (08:03)
[2018-02-12] MEDS: METOCLOPRAMIDE 10 MG/2 ML VIAL IV SCH ×3 (09:11→21:02)
[2018-02-12] MEDS: PANTOPRAZOLE 40 MG TABLET PO SCH (09:11)
[2018-02-12] MEDS: GABAPENTIN 100 MG CAPSULE PO SCH ×3 (09:11→21:01)
[2018-02-12] MEDS: METOPROLOL SUCCINATE XL 25 MG TABLET PO SCH (09:11)
[2018-02-12] MEDS: CLOPIDOGREL 75 MG TABLET PO SCH (09:11)
[2018-02-12] MEDS: INSULIN REGULAR 100 UNIT/ML SUBCUT SCH ×4 (09:15→21:02)
[2018-02-12] MEDS: DOCUSATE SODIUM 100 MG CAPSULE PO SCH ×2 (10:55→21:01)
[2018-02-12] MEDS: SODIUM CHLORIDE 0.9% 1,000 ML IV SCH (10:56)
[2018-02-12] MEDS ORDERED: SODIUM CHLORIDE 0.9% 1,000 ML IV SCH (18:30)
[2018-02-12 20:13] LABS: Basophils # 0.1 10*3/uL (0.0-0.2); Basophils % 0.3 % (0.0-0.8); Hemoglobin 9.5 GM/DL (14.0-18.0); Immature Granulocytes Absolute 4.28 #; Lymphocytes # 1.6 10*3/uL (1.4-4.0); Lymphocytes % 5.3 % (21.2-54.2); Mean Corpuscular HGB Conc 31.7 GM/DL (32-36); Mean Corpuscular Hemoglobin 29 PG (27-34); Mean Corpuscular Volume 92.9 FL (87-102); Mean Platelet Volume 13.1 FL (9.6-12.0); Monocytes # 6.3 10*3/uL (0.11-0.8); Monocytes % 20.6 % (1.7-12.7); NRBC # 0.02 10*3/uL; Neutrophils # 18.3 10*3/uL (1.4-7.4); Neutrophils % 59.8 % (38.7-73.9); Platelet Count 72 T/CUMM (130-400); Red Blood Count 3.23 MC/CUMM (3.8-5.5); Red Cell Distribution Width 18.6 % (9.3-17.3); White Blood Count 30.5 T/CUMM (4-12)
[2018-02-12 20:27] LABS: INR 1.3; Partial Thromboplastin Time 34.3 SECS (0-40)
[2018-02-12 20:45] LABS: Albumin 2.1 G/DL (3.4-5.0); Calcium 8.4 MG/DL (8.5-10.1); Osmolality,Calculated 296.8 MOS/KG (273-304); Potassium 4.5 MMOL/L (3.5-5.1); Total Protein 7.3 G/DL (6.4-8.3)
[2018-02-12] MEDS ORDERED: ROSUVASTATIN 10 MG TABLET PO SCH (21:00)
[2018-02-12] MEDS: ONDANSETRON 4 MG/2 ML VIAL IV PRN (21:01)
[2018-02-12 22:11] LABS: Band Neutrophils 6 % (0-10); Lymphocytes 9 % (20-55); Myelocytes 1 %; Segmented Neutrophils 62 % (50-85); Total Cells Counted 100
[2018-02-12 22:13] LABS: Anisocytosis 1+
[2018-02-12 22:14] LABS: Microcytosis Slight
[2018-02-12 22:15] LABS: Platelet Estimate Decreased; Spherocytes Slight
[2018-02-12] MEDS: DEXAMETHASONE 4 MG/1 ML VIAL IV SCH (22:34)
[2018-02-13] MEDS: SODIUM CHLORIDE 0.9% 1,000 ML IV SCH ×2 (03:15→12:10)
[2018-02-13 04:49] LABS: Basophils # 0.2 10*3/uL (0.0-0.2); Basophils % 0.5 % (0.0-0.8); Hematocrit 31.7 VOL% (42.0-52.0); Hemoglobin 9.7 GM/DL (14.0-18.0); Immature Granulocytes % 15.2 %; Immature Granulocytes Absolute 5.46 #; Lymphocytes # 1.4 10*3/uL (1.4-4.0); Lymphocytes % 3.9 % (21.2-54.2); Mean Corpuscular HGB Conc 30.6 GM/DL (32-36); Mean Corpuscular Hemoglobin 29 PG (27-34); Mean Corpuscular Volume 94.6 FL (87-102); Monocytes # 6.7 10*3/uL (0.11-0.8); Monocytes % 18.8 % (1.7-12.7); NRBC # 0.02 10*3/uL; Neutrophils # 22.1 10*3/uL (1.4-7.4); Neutrophils % 61.6 % (38.7-73.9); Platelet Count 63 T/CUMM (130-400); Red Blood Count 3.35 MC/CUMM (3.8-5.5); Red Cell Distribution Width 18.8 % (9.3-17.3); White Blood Count 35.9 T/CUMM (4-12)
[2018-02-13 05:11] LABS: Calcium 8.6 MG/DL (8.5-10.1); Osmolality,Calculated 308.3 MOS/KG (273-304); Potassium 5.3 MMOL/L (3.5-5.1)
[2018-02-13 05:15] LABS: Band Neutrophils 6 % (0-10); Calcium 8.4 MG/DL (8.5-10.1); Eosinophils 1 % (0-10); Lymphocytes 8 % (20-55); Osmolality,Calculated 305.5 MOS/KG (273-304); Platelet Estimate Decreased; Potassium 5.3 MMOL/L (3.5-5.1); Segmented Neutrophils 69 % (50-85); Total Cells Counted 100; Total Protein 7.3 G/DL (6.4-8.3)
[2018-02-13 05:16] LABS: Polychromasia Slight
[2018-02-13] MEDS: METOCLOPRAMIDE 10 MG/2 ML VIAL IV SCH (05:17)
[2018-02-13] MEDS: DEXAMETHASONE 4 MG/1 ML VIAL IV SCH ×4 (05:17→22:29)
[2018-02-13 07:19] LABS: Apearance,Urine CLOUDY (Clear); Bilirubin,Urine Negative (Negative); Blood, Urine Moderate mg/dL (Negative); Glucose,Urine (UA) 50 mg/dL (Negative); Ketones,Urine Negative (Negative); Nitrite,Urine Negative (Negative); Protein,Urine 100 MG/DL; RBC,Urine 48 /HPF (0-4); Squamous Epithelial Cell,Urine Occasional /HPF (0-10); Uric Acid Crystals,Urine Many /HPF (<1); Urine Color Yellow (Yellow); Urine Urobilinogen < 2.0 EU/DL (0.2-1.0); WBC,Urine 66 /HPF (0-6)
[2018-02-13] MEDS: INSULIN REGULAR 100 UNIT/ML SUBCUT SCH ×4 (08:14→22:30)
[2018-02-13 09:33] LABS: Albumin (SPE) 2.7 G/DL (3.2-5.3); Albumin (SPE) Rel % 36.8 %; Alpha 1 (SPE) 0.6 G/DL (0.1-0.4); Alpha 1 (SPE) Rel % 8.5 %; Alpha 2 (SPE) 1.3 G/DL (0.4-1.0); Alpha 2 (SPE) Rel % 18.4 %; Beta (SPE) 0.8 G/DL (0.5-1.1); Beta (SPE) Rel % 10.4 %; Gamma (SPE) 1.9 G/DL (0.7-1.7); Gamma (SPE) Rel % 25.9 %; Total Protein (Chem) 7.3 G/DL (6.4-8.3)
[2018-02-13] MEDS: METOPROLOL SUCCINATE XL 25 MG TABLET PO SCH (09:59)
[2018-02-13] MEDS: CLOPIDOGREL 75 MG TABLET PO SCH (10:03)
[2018-02-13] MEDS: GABAPENTIN 100 MG CAPSULE PO SCH ×3 (10:03→22:25)
[2018-02-13] MEDS: DOCUSATE SODIUM 100 MG CAPSULE PO SCH ×2 (10:03→22:25)
[2018-02-13] MEDS: ONDANSETRON 4 MG/2 ML VIAL IV PRN (22:29)
[2018-02-13] MEDS: ACETAMINOPHEN 325 MG TABLET PO PRN (23:28)
[2018-02-14] MEDS: SODIUM CHLORIDE 0.9% 1,000 ML IV SCH ×2 (01:32→23:08)
[2018-02-14] MEDS: DEXAMETHASONE 4 MG/1 ML VIAL IV SCH ×4 (04:07→22:25)
[2018-02-14 06:04] LABS: Basophils # 0.1 10*3/uL (0.0-0.2); Basophils % 0.1 % (0.0-0.8); Hematocrit 31.4 VOL% (42.0-52.0); Hemoglobin 9.9 GM/DL (14.0-18.0); Immature Granulocytes % 17.5 %; Immature Granulocytes Absolute 7.49 #; Lymphocytes # 1.7 10*3/uL (1.4-4.0); Lymphocytes % 3.9 % (21.2-54.2); Mean Corpuscular HGB Conc 31.5 GM/DL (32-36); Mean Corpuscular Hemoglobin 30 PG (27-34); Mean Corpuscular Volume 93.7 FL (87-102); Mean Platelet Volume 13.2 FL (9.6-12.0); Monocytes # 5.1 10*3/uL (0.11-0.8); NRBC # 0.02 10*3/uL; Neutrophils # 28.5 10*3/uL (1.4-7.4); Neutrophils % 66.5 % (38.7-73.9); Platelet Count 49 T/CUMM (130-400); Red Blood Count 3.35 MC/CUMM (3.8-5.5); Red Cell Distribution Width 18.8 % (9.3-17.3)
[2018-02-14 06:14] LABS: Calcium 7.7 MG/DL (8.5-10.1); Potassium 5.3 MMOL/L (3.5-5.1); White Blood Count 42.9 T/CUMM (4-12)
[2018-02-14 06:21] LABS: Albumin 1.7 G/DL (3.4-5.0); Bilirubin,Total 1.2 MG/DL (0.2-1.0); Potassium 5.3 MMOL/L (3.5-5.1); Total Protein 6.6 G/DL (6.4-8.3)
[2018-02-14 07:16] LABS: Band Neutrophils 11 % (0-10); Hypochromasia Slight; Lymphocytes 5 % (20-55); Metamyelocytes 1 %; Myelocytes 7 %; Platelet Estimate Decreased; Segmented Neutrophils 63 % (50-85); Total Cells Counted 100
[2018-02-14 07:17] LABS: Microcytosis Slight
[2018-02-14 07:30] LABS: Immuno Free Light Chain Lambda 3.97 MG/DL (0.57-2.63)
[2018-02-14 07:31] LABS: Immuno Free Light Chain Kappa 14.81 MG/DL (0.33-1.94); Immuno Free Light Chain Ratio 3.73 MG/DL (0.26-1.65)
[2018-02-14] MEDS: INSULIN REGULAR 100 UNIT/ML SUBCUT SCH ×4 (08:23→22:25)
[2018-02-14 09:19] LABS: HIV Antigen/Antibody Result Nonreactive (Nonreactive); Hepatitis A Ab IgM Quant 0.13 Index; Hepatitis A Ab IgM Result Negative (Negative); Hepatitis B Core IgM Quant 0.08 Index; Hepatitis B Core IgM Result Negative (Negative); Hepatitis B Surface Ag Quant < 0.10 Index; Hepatitis B Surface Ag Result Negative (Negative); Hepatitis C Virus Ab Quant < 0.02 Index; Hepatitis C Virus Ab Result Negative (Negative)
[2018-02-14] MEDS: CLOPIDOGREL 75 MG TABLET PO SCH (10:06)
[2018-02-14] MEDS: METOPROLOL SUCCINATE XL 25 MG TABLET PO SCH (10:12)
[2018-02-14] MEDS: GABAPENTIN 100 MG CAPSULE PO SCH ×3 (10:12→22:21)
[2018-02-14] MEDS: DOCUSATE SODIUM 100 MG CAPSULE PO SCH (10:12)
[2018-02-14] MEDS: SODIUM BICARB INJ 50 MEQ in SODIUM CHLORIDE 0.45% 1,000 ML IV SCH (17:33)
[2018-02-14] MEDS: cefTRIAXone 2,000 MG in SYRINGE 1 EACH IV SCH (17:34)
[2018-02-14] MEDS ORDERED: POLYETHYLENE GLYCOL POWDER 17 GM PACK PO ONE (18:00)
[2018-02-14] MEDS ORDERED: SODIUM PHOSPHATE ENEMA 133 ML BOTTLE RECTAL ONE (18:05)
[2018-02-14] MEDS: INSULIN GLARGINE 100 UNIT/ML SUBCUT SCH (22:25)
[2018-02-15] MEDS: DEXAMETHASONE 4 MG/1 ML VIAL IV SCH ×4 (04:04→21:46)
[2018-02-15] MEDS: cefTRIAXone 2,000 MG in SYRINGE 1 EACH IV SCH ×2 (04:04→17:46)
[2018-02-15 05:31] LABS: Basophils # 0.1 10*3/uL (0.0-0.2); Basophils % 0.1 % (0.0-0.8); Hematocrit 31.2 VOL% (42.0-52.0); Hemoglobin 9.8 GM/DL (14.0-18.0); Immature Granulocytes % 22.7 %; Lymphocytes # 1.8 10*3/uL (1.4-4.0); Lymphocytes % 3.6 % (21.2-54.2); Mean Corpuscular HGB Conc 31.4 GM/DL (32-36); Mean Corpuscular Hemoglobin 29 PG (27-34); Mean Corpuscular Volume 92.3 FL (87-102); Mean Platelet Volume 12.9 FL (9.6-12.0); Monocytes # 5.6 10*3/uL (0.11-0.8); Monocytes % 11.3 % (1.7-12.7); NRBC # 0.04 10*3/uL; Neutrophils # 30.9 10*3/uL (1.4-7.4); Neutrophils % 62.3 % (38.7-73.9); Platelet Count 84 T/CUMM (130-400); Red Blood Count 3.38 MC/CUMM (3.8-5.5); Red Cell Distribution Width 18.3 % (9.3-17.3)
[2018-02-15 05:42] LABS: INR 1.3; PT Patient Result 13.6 SECS; Partial Thromboplastin Time 28.6 SECS (0-40)
[2018-02-15 05:43] LABS: White Blood Count 49.7 T/CUMM (4-12)
[2018-02-15 06:09] LABS: Band Neutrophils 4 % (0-10); Eosinophils 1 % (0-10); Lymphocytes 22 % (20-55); Metamyelocytes 1 %; Myelocytes 2 %; Segmented Neutrophils 59 % (50-85); Total Cells Counted 100
[2018-02-15 06:10] LABS: Platelet Estimate Decreased; Polychromasia Few
[2018-02-15 06:11] LABS: Alanine Aminotransferase 46 U/L (16-61); Albumin 1.8 G/DL (3.4-5.0); Alkaline Phosphatase 121 U/L (45-117); Aspartate Amino Transferase 18 U/L (0-37); Bilirubin,Total < 0.39 MG/DL (0.2-1.0); Blood Urea Nitrogen 110 MG/DL (7-18); Calcium 7.7 MG/DL (8.5-10.1); Glucose 252 MG/DL (74-106); Potassium 5.3 MMOL/L (3.5-5.1); Sodium 136 MMOL/L (136-145); Total Protein 6.6 G/DL (6.4-8.3)
[2018-02-15] MEDS: GABAPENTIN 100 MG CAPSULE PO SCH ×3 (09:13→21:06)
[2018-02-15] MEDS: ACETAMINOPHEN 325 MG TABLET PO PRN ×2 (09:14→17:42)
[2018-02-15] MEDS: CLOPIDOGREL 75 MG TABLET PO SCH (09:14)
[2018-02-15] MEDS: INSULIN REGULAR 100 UNIT/ML SUBCUT SCH ×4 (09:15→21:06)
[2018-02-15] MEDS: POLYETHYLENE GLYCOL POWDER 17 GM PACK PO SCH (09:15)
[2018-02-15] MEDS: METOPROLOL SUCCINATE XL 25 MG TABLET PO SCH (09:15)
[2018-02-15] MEDS: SODIUM BICARB INJ 50 MEQ in SODIUM CHLORIDE 0.45% 1,000 ML IV SCH (09:16)
[2018-02-15] MEDS ORDERED: HEPARIN LOCK FLUSH 500 UNIT/5 ML SYRINGE IV ONE (11:24)
[2018-02-15] MEDS ORDERED: HEPARIN 10,000 UNIT/10 ML VIAL IV SCH (17:00)
[2018-02-15] MEDS: INSULIN GLARGINE 100 UNIT/ML SUBCUT SCH (21:06)
[2018-02-16] MEDS: cefTRIAXone 2,000 MG in SYRINGE 1 EACH IV SCH ×2 (04:00→19:36)
[2018-02-16] MEDS: SODIUM BICARB INJ 50 MEQ in SODIUM CHLORIDE 0.45% 1,000 ML IV SCH ×2 (04:02→22:28)
[2018-02-16] MEDS: DEXAMETHASONE 4 MG/1 ML VIAL IV SCH ×4 (04:03→22:31)
[2018-02-16] MEDS: ACETAMINOPHEN 325 MG TABLET PO PRN (05:02)
[2018-02-16 05:45] LABS: Basophils % 0.1 % (0.0-0.8); Hematocrit 30.4 VOL% (42.0-52.0); Hemoglobin 9.7 GM/DL (14.0-18.0); Immature Granulocytes Absolute 9.43 #; Lymphocytes # 2.1 10*3/uL (1.4-4.0); Mean Corpuscular HGB Conc 31.9 GM/DL (32-36); Mean Corpuscular Hemoglobin 29 PG (27-34); Mean Corpuscular Volume 91.8 FL (87-102); Mean Platelet Volume 13.6 FL (9.6-12.0); Monocytes # 4.2 10*3/uL (0.11-0.8); Monocytes % 12.1 % (1.7-12.7); NRBC # 0.02 10*3/uL; Neutrophils # 19.1 10*3/uL (1.4-7.4); Neutrophils % 54.8 % (38.7-73.9); Red Blood Count 3.31 MC/CUMM (3.8-5.5); Red Cell Distribution Width 18.2 % (9.3-17.3); White Blood Count 34.9 T/CUMM (4-12)
[2018-02-16 05:50] LABS: Platelet Count 66 T/CUMM (130-400)
[2018-02-16 06:05] LABS: Albumin 1.9 G/DL (3.4-5.0); Bilirubin,Total 0.5 MG/DL (0.2-1.0); Calcium 7.8 MG/DL (8.5-10.1); Osmolality,Calculated 306.7 MOS/KG (273-304); Total Protein 6.3 G/DL (6.4-8.3)
[2018-02-16 06:47] LABS: Band Neutrophils 3 % (0-10); Lymphocytes 10 % (20-55); Metamyelocytes 2 %; Myelocytes 6 %; Segmented Neutrophils 58 % (50-85); Total Cells Counted 100
[2018-02-16 06:48] LABS: Hypochromasia Slight; Ovalocytes 1+; Platelet Estimate Decreased
[2018-02-16] MEDS: ONDANSETRON 4 MG/2 ML VIAL IV PRN ×2 (07:57→19:47)
[2018-02-16] MEDS: INSULIN REGULAR 100 UNIT/ML SUBCUT SCH ×4 (08:40→21:07)
[2018-02-16] MEDS: POLYETHYLENE GLYCOL POWDER 17 GM PACK PO SCH (08:41)
[2018-02-16] MEDS: METOPROLOL SUCCINATE XL 25 MG TABLET PO SCH (08:42)
[2018-02-16] MEDS: CLOPIDOGREL 75 MG TABLET PO SCH (08:42)
[2018-02-16] MEDS: GABAPENTIN 100 MG CAPSULE PO SCH ×3 (08:42→20:57)
[2018-02-16] MEDS: ACETAMINOPHEN/CODEINE 300-30 MG TABLET PO PRN ×2 (10:50→13:48)
[2018-02-16 15:45] LABS: Myeloperoxidase Antibody < 0.2 U
[2018-02-16] MEDS: MORPHINE 4 MG/1 ML VIAL IV PRN (19:04)
[2018-02-16] MEDS: INSULIN GLARGINE 100 UNIT/ML SUBCUT SCH (21:07)
[2018-02-17] MEDS: ACETAMINOPHEN/CODEINE 300-30 MG TABLET PO PRN ×4 (02:04→20:39)
[2018-02-17] MEDS: ONDANSETRON 4 MG/2 ML VIAL IV PRN ×3 (02:04→20:40)
[2018-02-17] MEDS: cefTRIAXone 2,000 MG in SYRINGE 1 EACH IV SCH ×2 (02:08→14:55)
[2018-02-17 05:06] LABS: Basophils # 0.1 10*3/uL (0.0-0.2); Basophils % 0.1 % (0.0-0.8); Hematocrit 30.8 VOL% (42.0-52.0); Immature Granulocytes % 26.9 %; Immature Granulocytes Absolute 9.55 #; Lymphocytes # 1.9 10*3/uL (1.4-4.0); Lymphocytes % 5.4 % (21.2-54.2); Mean Corpuscular HGB Conc 32.5 GM/DL (32-36); Mean Corpuscular Hemoglobin 30 PG (27-34); Mean Corpuscular Volume 91.7 FL (87-102); Mean Platelet Volume 13.8 FL (9.6-12.0); Monocytes # 6.9 10*3/uL (0.11-0.8); Monocytes % 19.5 % (1.7-12.7); Neutrophils % 48.1 % (38.7-73.9); Red Blood Count 3.36 MC/CUMM (3.8-5.5); Red Cell Distribution Width 18.3 % (9.3-17.3); White Blood Count 35.5 T/CUMM (4-12)
[2018-02-17 05:07] LABS: Platelet Count 44 T/CUMM (130-400)
[2018-02-17 05:30] LABS: Band Neutrophils 14 % (0-10); Hypochromasia 1+; Lymphocytes 7 % (20-55); Myelocytes 9 %; Platelet Estimate Decreased; Segmented Neutrophils 57 % (50-85); Total Cells Counted 100
[2018-02-17 05:33] LABS: Bilirubin,Total 0.5 MG/DL (0.2-1.0); Calcium 7.6 MG/DL (8.5-10.1); Osmolality,Calculated 301.5 MOS/KG (273-304); Potassium 4.9 MMOL/L (3.5-5.1); Total Protein 6.7 G/DL (6.4-8.3)
[2018-02-17] MEDS: DEXAMETHASONE 4 MG/1 ML VIAL IV SCH ×3 (05:59→22:30)
[2018-02-17] MEDS ORDERED: DIAZEPAM 10 MG/2 ML SYRINGE IV PRN (08:20)
[2018-02-17] MEDS ORDERED: LORazepam 2 MG/1 ML VIAL IV PRN (08:30)
[2018-02-17] MEDS: INSULIN REGULAR 100 UNIT/ML SUBCUT SCH ×4 (08:53→20:09)
[2018-02-17] MEDS: MECLIZINE 25 MG TABLET PO SCH ×3 (08:54→20:40)
[2018-02-17] MEDS: CLOPIDOGREL 75 MG TABLET PO SCH (08:54)
[2018-02-17] MEDS: METOPROLOL SUCCINATE XL 25 MG TABLET PO SCH (08:58)
[2018-02-17] MEDS: GABAPENTIN 100 MG CAPSULE PO SCH ×3 (08:58→20:29)
[2018-02-17] MEDS: POLYETHYLENE GLYCOL POWDER 17 GM PACK PO SCH (09:02)
[2018-02-17] MEDS: INSULIN GLARGINE 100 UNIT/ML SUBCUT SCH (20:39)
[2018-02-17] MEDS: SODIUM BICARB INJ 50 MEQ in SODIUM CHLORIDE 0.45% 1,000 ML IV SCH (22:31)
[2018-02-18] MEDS: cefTRIAXone 2,000 MG in SYRINGE 1 EACH IV SCH ×2 (03:58→15:49)
[2018-02-18] MEDS: ACETAMINOPHEN/CODEINE 300-30 MG TABLET PO PRN (05:26)
[2018-02-18] MEDS: DEXAMETHASONE 4 MG/1 ML VIAL IV SCH ×3 (05:29→22:41)
[2018-02-18 06:15] LABS: Basophils % 0.1 % (0.0-0.8); Eosinophils % 0.1 % (0.00-10.9); Hematocrit 30.3 VOL% (42.0-52.0); Hemoglobin 9.8 GM/DL (14.0-18.0); Immature Granulocytes % 21.6 %; Immature Granulocytes Absolute 7.78 #; Lymphocytes # 2.1 10*3/uL (1.4-4.0); Lymphocytes % 5.8 % (21.2-54.2); Mean Corpuscular HGB Conc 32.3 GM/DL (32-36); Mean Corpuscular Hemoglobin 30 PG (27-34); Mean Corpuscular Volume 91.8 FL (87-102); Monocytes # 3.1 10*3/uL (0.11-0.8); Monocytes % 8.6 % (1.7-12.7); Neutrophils # 22.9 10*3/uL (1.4-7.4); Neutrophils % 63.8 % (38.7-73.9); Red Cell Distribution Width 18.2 % (9.3-17.3)
[2018-02-18 06:17] LABS: Platelet Count 35 T/CUMM (130-400)
[2018-02-18 06:29] LABS: Albumin 2.1 G/DL (3.4-5.0); Bilirubin,Total 0.5 MG/DL (0.2-1.0); Calcium 7.6 MG/DL (8.5-10.1); Osmolality,Calculated 299.7 MOS/KG (273-304); Potassium 4.5 MMOL/L (3.5-5.1); Total Protein 6.8 G/DL (6.4-8.3)
[2018-02-18 06:35] LABS: Band Neutrophils 20 % (0-10); Lymphocytes 4 % (20-55); Metamyelocytes 1 %; Myelocytes 7 %; Segmented Neutrophils 44 % (50-85); Total Cells Counted 100
[2018-02-18 06:36] LABS: Hypochromasia 1+; Ovalocytes Slight; Platelet Estimate Decreased
[2018-02-18] MEDS: INSULIN REGULAR 100 UNIT/ML SUBCUT SCH ×4 (08:29→22:40)
[2018-02-18] MEDS: MECLIZINE 25 MG TABLET PO SCH ×3 (08:32→22:40)
[2018-02-18] MEDS: METOPROLOL SUCCINATE XL 25 MG TABLET PO SCH (08:33)
[2018-02-18] MEDS: CLOPIDOGREL 75 MG TABLET PO SCH (08:33)
[2018-02-18] MEDS: POLYETHYLENE GLYCOL POWDER 17 GM PACK PO SCH (08:34)
[2018-02-18] MEDS ORDERED: GABAPENTIN 100 MG CAPSULE PO SCH (09:00)
[2018-02-18] MEDS: MORPHINE 4 MG/1 ML VIAL IV PRN ×2 (15:58→23:40)
[2018-02-18] MEDS: SODIUM BICARB INJ 50 MEQ in SODIUM CHLORIDE 0.45% 1,000 ML IV SCH (16:00)
[2018-02-18] MEDS: INSULIN GLARGINE 100 UNIT/ML SUBCUT SCH (22:41)
[2018-02-19] MEDS: ACETAMINOPHEN/CODEINE 300-30 MG TABLET PO PRN (01:53)
[2018-02-19] MEDS: SODIUM BICARB INJ 50 MEQ in SODIUM CHLORIDE 0.45% 1,000 ML IV SCH ×3 (02:30→21:55)
[2018-02-19] MEDS: cefTRIAXone 2,000 MG in SYRINGE 1 EACH IV SCH ×2 (04:35→15:28)
[2018-02-19] MEDS: DEXAMETHASONE 4 MG/1 ML VIAL IV SCH ×3 (05:45→21:05)
[2018-02-19 06:21] LABS: Basophils # 0.1 10*3/uL (0.0-0.2); Basophils % 0.1 % (0.0-0.8); Hematocrit 32.8 VOL% (42.0-52.0); Hemoglobin 10.4 GM/DL (14.0-18.0); Immature Granulocytes % 20.9 %; Immature Granulocytes Absolute 8.97 #; Lymphocytes # 2.4 10*3/uL (1.4-4.0); Lymphocytes % 5.7 % (21.2-54.2); Mean Corpuscular HGB Conc 31.7 GM/DL (32-36); Mean Corpuscular Hemoglobin 29 PG (27-34); Mean Corpuscular Volume 92.4 FL (87-102); Monocytes # 5.6 10*3/uL (0.11-0.8); Monocytes % 13.1 % (1.7-12.7); Neutrophils # 25.7 10*3/uL (1.4-7.4); Neutrophils % 60.2 % (38.7-73.9); Red Blood Count 3.55 MC/CUMM (3.8-5.5); Red Cell Distribution Width 18.1 % (9.3-17.3)
[2018-02-19 06:24] LABS: Platelet Count 34 T/CUMM (130-400); White Blood Count 42.8 T/CUMM (4-12)
[2018-02-19 06:42] LABS: Calcium 7.8 MG/DL (8.5-10.1); Osmolality,Calculated 287.1 MOS/KG (273-304); Potassium 4.5 MMOL/L (3.5-5.1)
[2018-02-19 06:59] LABS: Band Neutrophils 19 % (0-10); Lymphocytes 11 % (20-55); Myelocytes 5 %; Segmented Neutrophils 40 % (50-85); Total Cells Counted 100
[2018-02-19 07:00] LABS: Hypochromasia 1+; Ovalocytes Slight; Platelet Estimate Decreased
[2018-02-19] MEDS: INSULIN REGULAR 100 UNIT/ML SUBCUT SCH ×4 (08:20→21:05)
[2018-02-19] MEDS: MORPHINE 4 MG/1 ML VIAL IV PRN (08:24)
[2018-02-19] MEDS: MECLIZINE 25 MG TABLET PO SCH ×3 (10:12→23:43)
[2018-02-19] MEDS: POLYETHYLENE GLYCOL POWDER 17 GM PACK PO SCH (10:12)
[2018-02-19] MEDS: CLOPIDOGREL 75 MG TABLET PO SCH (10:37)
[2018-02-19] MEDS: PROMETHAZINE INJ 12.5 MG in SODIUM CHLORIDE 0.9% 50 ML IV PRN (10:37)
[2018-02-19] MEDS ORDERED: SODIUM PHOSPHATE ENEMA 133 ML BOTTLE RECTAL PRN (14:53)
[2018-02-19] MEDS: INSULIN GLARGINE 100 UNIT/ML SUBCUT SCH (21:05)
[2018-02-20] MEDS: cefTRIAXone 2,000 MG in SYRINGE 1 EACH IV SCH (03:10)
[2018-02-20] MEDS: PROMETHAZINE INJ 12.5 MG in SODIUM CHLORIDE 0.9% 50 ML IV PRN (04:22)
[2018-02-20 04:49] LABS: Basophils % 0.1 % (0.0-0.8); Hematocrit 31.1 VOL% (42.0-52.0); Hemoglobin 9.9 GM/DL (14.0-18.0); Immature Granulocytes % 20.6 %; Immature Granulocytes Absolute 7.59 #; Lymphocytes # 1.7 10*3/uL (1.4-4.0); Lymphocytes % 4.5 % (21.2-54.2); Mean Corpuscular HGB Conc 31.8 GM/DL (32-36); Mean Corpuscular Hemoglobin 30 PG (27-34); Mean Corpuscular Volume 92.6 FL (87-102); Mean Platelet Volume 13.9 FL (9.6-12.0); Monocytes % 13.5 % (1.7-12.7); Neutrophils # 22.5 10*3/uL (1.4-7.4); Neutrophils % 61.3 % (38.7-73.9); Red Blood Count 3.36 MC/CUMM (3.8-5.5); Red Cell Distribution Width 18.1 % (9.3-17.3); White Blood Count 36.8 T/CUMM (4-12)
[2018-02-20 04:58] LABS: Platelet Count 36 T/CUMM (130-400)
[2018-02-20 05:05] LABS: Calcium 8.1 MG/DL (8.5-10.1); Osmolality,Calculated 294.8 MOS/KG (273-304); Potassium 4.3 MMOL/L (3.5-5.1)
[2018-02-20 05:35] LABS: Band Neutrophils 18 % (0-10); Hypochromasia 1+; Lymphocytes 1 % (20-55); Myelocytes 5 %; Platelet Estimate Decreased; Segmented Neutrophils 52 % (50-85); Total Cells Counted 100
[2018-02-20] MEDS: DEXAMETHASONE 4 MG/1 ML VIAL IV SCH ×2 (06:50→15:23)
[2018-02-20] MEDS ORDERED: MECLIZINE 25 MG TABLET PO SCH (09:00)
[2018-02-20] MEDS: POLYETHYLENE GLYCOL POWDER 17 GM PACK PO SCH (09:34)
[2018-02-20] MEDS: CLOPIDOGREL 75 MG TABLET PO SCH (09:35)
[2018-02-20] MEDS: INSULIN REGULAR 100 UNIT/ML SUBCUT SCH ×3 (09:41→17:28)
[2018-02-20] MEDS ORDERED: cefTRIAXone 1,000 MG in SYRINGE 1 EACH IV SCH (15:00)
[2018-02-20] MEDS: ACETAMINOPHEN 325 MG TABLET PO PRN (15:20)
[2018-02-20 16:00] VITALS: BP 142/79
[2018-02-20] MEDS: ACETAMINOPHEN/CODEINE 300-30 MG TABLET PO PRN (18:27)
== END 2018-02-20 20:15 | disposition hospice, home (50) | DRG 252 ==
LOC: N.EDINP 16:52 → N.ED 16:52 → N.5E 20:19 → SUATTDRO 02-07 15:06
PROVIDERS: ADMIT Hospitalist; ATTEND Internal Medicine

== ENCOUNTER 2018-03-17 19:23 | Inpatient (IN) ==
[2018-03-17] MEDS ORDERED: ONDANSETRON 4 MG/2 ML VIAL ONE (19:30)
[2018-03-17] MEDS ORDERED: ADENOSINE 6 MG/2 ML VIAL ONE (19:30)
[2018-03-17] MEDS ORDERED: PIPERACILLIN/TAZOBACTAM 3,375 MG in SODIUM CHLORIDE 0.9% 100 ML IV STA (19:46)
[2018-03-17] MEDS ORDERED: SODIUM CHLORIDE 0.9% 1,000 ML IV STA (19:46)
[2018-03-17] MEDS ORDERED: ADENOSINE 6 MG/2 ML VIAL IV STA (19:46)
[2018-03-17] MEDS ORDERED: ONDANSETRON 4 MG/2 ML VIAL IV STA (19:46)
[2018-03-17] MEDS ORDERED: VANCOMYCIN INJ 1,000 MG in SODIUM CHLORIDE 0.9% 250 ML IV STA (19:46)
[2018-03-17 20:02] LABS: Basophils % 0.3 % (0.0-0.8); Eosinophils % 0.3 % (0.00-10.9); Hematocrit 25.4 VOL% (42.0-52.0); Hemoglobin 8.1 GM/DL (14.0-18.0); Immature Granulocytes % 8.1 %; Immature Granulocytes Absolute 0.57 #; Lymphocytes # 1.5 10*3/uL (1.4-4.0); Lymphocytes % 21.4 % (21.2-54.2); Mean Corpuscular HGB Conc 31.9 GM/DL (32-36); Mean Corpuscular Hemoglobin 28 PG (27-34); Mean Corpuscular Volume 88.5 FL (87-102); Mean Platelet Volume 12.7 FL (9.6-12.0); Monocytes # 0.7 10*3/uL (0.11-0.8); Monocytes % 9.9 % (1.7-12.7); Neutrophils # 4.2 10*3/uL (1.4-7.4); Platelet Count 109 T/CUMM (130-400); Red Blood Count 2.87 MC/CUMM (3.8-5.5); Red Cell Distribution Width 15.3 % (9.3-17.3)
[2018-03-17 20:11] LABS: INR 1.2; PT Patient Result 13.4 SECS; Partial Thromboplastin Time 29.9 SECS (0-40)
[2018-03-17 20:28] LABS: Troponin I < 0.015 NG/ML (0.00-0.045)
[2018-03-17] MEDS ORDERED: fentaNYL 100 MCG/2 ML VIAL IV STA (20:32)
[2018-03-17] MEDS ORDERED: fentaNYL 100 MCG/2 ML VIAL ONE (20:33)
[2018-03-17 20:34] LABS: Band Neutrophils 4 % (0-10); Hypochromasia 1+; Lymphocytes 26 % (20-55); Metamyelocytes 2 %; Myelocytes 1 %; Segmented Neutrophils 56 % (50-85); Total Cells Counted 100
[2018-03-17 20:35] LABS: Elliptocytes Few; Platelet Estimate Adequate
[2018-03-17 20:37] LABS: Alanine Aminotransferase 29 U/L (16-61); Albumin 1.8 G/DL (3.4-5.0); Alkaline Phosphatase 146 U/L (45-117); Aspartate Amino Transferase 20 U/L (0-37); Bilirubin,Total < 0.39 MG/DL (0.2-1.0); Blood Urea Nitrogen 34 MG/DL (7-18); Calcium 7.8 MG/DL (8.5-10.1); Glucose 225 MG/DL (74-106); Osmolality,Calculated 287.8 MOS/KG (273-304); Potassium 3.8 MMOL/L (3.5-5.1); Sodium 137 MMOL/L (136-145); Total Protein 6.3 G/DL (6.4-8.3)
[2018-03-17] MEDS ORDERED: SODIUM CHLORIDE 0.9% 250 ML IV ONE (21:32)
[2018-03-17 22:04] LABS: Apearance,Urine CLEAR (Clear); Bilirubin,Urine Negative (Negative); Blood, Urine Negative (Negative); Glucose,Urine (UA) Negative (Negative); Ketones,Urine Negative (Negative); Nitrite,Urine Negative (Negative); Protein,Urine Negative; RBC,Urine 1 /HPF (0-4); Urine Color Yellow (Yellow); Urine Specific Gravity 1.015 (1.001-1.035); Urine Urobilinogen < 2.0 EU/DL (0.2-1.0); WBC,Urine 5 /HPF (0-6)
[2018-03-17 22:05] LABS: Barbiturates Screen,Urine Positive (Negative); Benzodiazepines Screen,Urine Negative (Negative); Cannabinoid Screen,Urine Negative (Negative); Opiate Screen,Urine Positive (Negative); Phencyclidine Screen,Urine Negative (Negative)
[2018-03-17] MEDS ORDERED: GLUCAGON 1 MG VIAL IM PRN (23:23)
[2018-03-17] MEDS ORDERED: DEXTROSE 50% 25 GM/50 ML SYRINGE IV PRN (23:23)
[2018-03-17] MEDS ORDERED: ACETAMINOPHEN 325 MG TABLET PO PRN (23:23)
[2018-03-18] MEDS: ONDANSETRON 4 MG/2 ML VIAL IV PRN (01:18)
[2018-03-18] MEDS ORDERED: ADENOSINE 6 MG/2 ML VIAL ONE ×2 (03:19→10:05)
[2018-03-18] MEDS ORDERED: ADENOSINE 90 MG/30 ML VIAL IV ONE (03:20)
[2018-03-18] MEDS: MORPHINE 4 MG/1 ML VIAL IV PRN (03:59)
[2018-03-18] MEDS: MEROPENEM 1,000 MG in SODIUM CHLORIDE 0.9% 100 ML IV SCH ×2 (06:42→18:43)
[2018-03-18 06:51] LABS: Basophils % 0.1 % (0.0-0.8); Eosinophils % 0.3 % (0.00-10.9); Hematocrit 22.9 VOL% (42.0-52.0); Hemoglobin 7.2 GM/DL (14.0-18.0); Immature Granulocytes % 7.8 %; Immature Granulocytes Absolute 0.61 #; Lymphocytes # 1.4 10*3/uL (1.4-4.0); Lymphocytes % 18.2 % (21.2-54.2); Mean Corpuscular HGB Conc 31.4 GM/DL (32-36); Mean Corpuscular Hemoglobin 28 PG (27-34); Mean Corpuscular Volume 88.1 FL (87-102); Mean Platelet Volume 12.7 FL (9.6-12.0); Monocytes # 0.8 10*3/uL (0.11-0.8); Monocytes % 10.8 % (1.7-12.7); Neutrophils # 4.9 10*3/uL (1.4-7.4); Neutrophils % 62.8 % (38.7-73.9); Platelet Count 111 T/CUMM (130-400); Red Cell Distribution Width 15.5 % (9.3-17.3); White Blood Count 7.8 T/CUMM (4-12)
[2018-03-18 07:10] LABS: Band Neutrophils 10 % (0-10); Hypochromasia 1+; Lymphocytes 17 % (20-55); Ovalocytes Slight; Platelet Estimate Decreased; Segmented Neutrophils 59 % (50-85); Total Cells Counted 100
[2018-03-18 07:11] LABS: Alanine Aminotransferase 24 U/L (16-61); Albumin 1.8 G/DL (3.4-5.0); Alkaline Phosphatase 130 U/L (45-117); Aspartate Amino Transferase 13 U/L (0-37); Bilirubin,Total < 0.39 MG/DL (0.2-1.0); Blood Urea Nitrogen 26 MG/DL (7-18); Calcium 7.6 MG/DL (8.5-10.1); Cholesterol 61 MG/DL (50-200); Glucose 155 MG/DL (74-106); HDL Cholesterol 27 MG/DL (40-60); Osmolality,Calculated 280.8 MOS/KG (273-304); Potassium 3.9 MMOL/L (3.5-5.1); Risk Ratio 2.26; Sodium 137 MMOL/L (136-145); Total Protein 6.4 G/DL (6.4-8.3); Triglycerides 88 MG/DL (2-150); VLDL CHOLESTEROL 17.6 MG/DL
[2018-03-18] MEDS ORDERED: SODIUM CHLORIDE 0.9% 1,000 ML IV PRN (07:48)
[2018-03-18] MEDS: INSULIN REGULAR 100 UNIT/ML SUBCUT SCH ×4 (08:54→20:46)
[2018-03-18] MEDS: PANTOPRAZOLE 40 MG TABLET PO SCH (08:54)
[2018-03-18] MEDS: POLYETHYLENE GLYCOL POWDER 17 GM PACK PO SCH (08:54)
[2018-03-18] MEDS: CLOPIDOGREL 75 MG TABLET PO SCH (08:54)
[2018-03-18] MEDS ORDERED: POTASSIUM CHLORIDE 20 MEQ/15 ML UDCUP PO ONE (10:13)
[2018-03-18] MEDS ORDERED: DIGOXIN 0.5 MG/2 ML AMP IV ONE (10:13)
[2018-03-18] MEDS ORDERED: MAGNESIUM SULF RIDER 50 ML IV ONE (10:13)
[2018-03-18] MEDS ORDERED: MAGNESIUM SULF RIDER 2 GM in PREMIX 1 EACH IV ONE (10:13)
[2018-03-18] MEDS ORDERED: DIGOXIN 0.5 MG/2 ML AMP ONE (10:13)
[2018-03-18 12:10] LABS: Thyroid Stimulating Hormone 4.46 uIU/ml (0.358-3.74)
[2018-03-18] MEDS: DIGOXIN 0.125 MG TABLET PO SCH (12:54)
[2018-03-18] MEDS: APIXABAN 5 MG TABLET PO SCH (17:18)
[2018-03-18] MEDS: ALLOPURINOL 100 MG TABLET PO SCH (18:43)
[2018-03-18] MEDS: MIRTAZAPINE 15 MG TABLET PO SCH (20:44)
[2018-03-18] MEDS: ROSUVASTATIN 10 MG TABLET PO SCH (20:44)
[2018-03-18] MEDS: INSULIN GLARGINE 100 UNIT/ML SUBCUT SCH (20:45)
[2018-03-19 04:18] LABS: Basophils % 0.3 % (0.0-0.8); Eosinophils % 0.5 % (0.00-10.9); Hematocrit 27.7 VOL% (42.0-52.0); Hemoglobin 8.8 GM/DL (14.0-18.0); Immature Granulocytes % 8.2 %; Immature Granulocytes Absolute 0.63 #; Lymphocytes # 1.1 10*3/uL (1.4-4.0); Lymphocytes % 14.6 % (21.2-54.2); Mean Corpuscular HGB Conc 31.8 GM/DL (32-36); Mean Corpuscular Hemoglobin 28 PG (27-34); Mean Corpuscular Volume 88.8 FL (87-102); Mean Platelet Volume 12.3 FL (9.6-12.0); Monocytes # 0.7 10*3/uL (0.11-0.8); Neutrophils # 5.2 10*3/uL (1.4-7.4); Neutrophils % 67.4 % (38.7-73.9); Platelet Count 108 T/CUMM (130-400); Red Blood Count 3.12 MC/CUMM (3.8-5.5); Red Cell Distribution Width 15.2 % (9.3-17.3); White Blood Count 7.7 T/CUMM (4-12)
[2018-03-19 04:32] LABS: Calcium 8.1 MG/DL (8.5-10.1); Osmolality,Calculated 278.5 MOS/KG (273-304); Potassium 3.8 MMOL/L (3.5-5.1)
[2018-03-19 04:36] LABS: Albumin 1.7 G/DL (3.4-5.0); Bilirubin,Total 1.3 MG/DL (0.2-1.0); Osmolality,Calculated 277.5 MOS/KG (273-304); Potassium 3.8 MMOL/L (3.5-5.1); Total Protein 6.4 G/DL (6.4-8.3)
[2018-03-19 04:42] LABS: Band Neutrophils 7 % (0-10); Hypochromasia 1+; Lymphocytes 16 % (20-55); Myelocytes 1 %; Platelet Estimate Decreased; Segmented Neutrophils 69 % (50-85); Total Cells Counted 100
[2018-03-19] MEDS: MEROPENEM 1,000 MG in SODIUM CHLORIDE 0.9% 100 ML IV SCH ×2 (06:35→18:45)
[2018-03-19] MEDS: ONDANSETRON 4 MG/2 ML VIAL IV PRN (08:48)
[2018-03-19] MEDS: INSULIN REGULAR 100 UNIT/ML SUBCUT SCH ×4 (08:48→21:19)
[2018-03-19] MEDS ORDERED: predniSONE 20 MG TABLET PO SCH (09:00)
[2018-03-19] MEDS ORDERED: ALLOPURINOL 100 MG TABLET PO SCH (09:00)
[2018-03-19] MEDS: CLOPIDOGREL 75 MG TABLET PO SCH (09:17)
[2018-03-19] MEDS: PANTOPRAZOLE 40 MG TABLET PO SCH (09:17)
[2018-03-19] MEDS: predniSONE 20 MG TABLET PO SCH (09:17)
[2018-03-19] MEDS: APIXABAN 5 MG TABLET PO SCH ×2 (09:17→21:18)
[2018-03-19] MEDS: ALLOPURINOL 100 MG TABLET PO SCH (09:18)
[2018-03-19] MEDS: POLYETHYLENE GLYCOL POWDER 17 GM PACK PO SCH (09:18)
[2018-03-19] MEDS: SUMAtriptan 25 MG TABLET PO PRN (10:48)
[2018-03-19] MEDS: DIGOXIN 0.125 MG TABLET PO SCH (12:31)
[2018-03-19] MEDS: MAGNESIUM GLUCONATE 200 MG/ML 30 ML/BOTTLE PO SCH ×2 (12:33→21:19)
[2018-03-19 15:40] LABS: Cyclic Citrull Peptide Interp Negative
[2018-03-19] MEDS: ROSUVASTATIN 10 MG TABLET PO SCH (21:18)
[2018-03-19] MEDS: MIRTAZAPINE 15 MG TABLET PO SCH (21:19)
[2018-03-19] MEDS: INSULIN GLARGINE 100 UNIT/ML SUBCUT SCH (21:20)
[2018-03-20 04:16] LABS: Basophils % 0.2 % (0.0-0.8); Hematocrit 29.7 VOL% (42.0-52.0); Hemoglobin 9.3 GM/DL (14.0-18.0); Immature Granulocytes % 10.8 %; Immature Granulocytes Absolute 0.61 #; Lymphocytes # 1.3 10*3/uL (1.4-4.0); Mean Corpuscular HGB Conc 31.3 GM/DL (32-36); Mean Corpuscular Hemoglobin 28 PG (27-34); Mean Corpuscular Volume 90.3 FL (87-102); Mean Platelet Volume 12.1 FL (9.6-12.0); Monocytes # 0.5 10*3/uL (0.11-0.8); Neutrophils # 3.3 10*3/uL (1.4-7.4); Platelet Count 98 T/CUMM (130-400); Red Blood Count 3.29 MC/CUMM (3.8-5.5); Red Cell Distribution Width 15.1 % (9.3-17.3); White Blood Count 5.7 T/CUMM (4-12)
[2018-03-20 04:40] LABS: Band Neutrophils 9 % (0-10); Hypochromasia 1+; Lymphocytes 26 % (20-55); Myelocytes 3 %; Osmolality,Calculated 279.4 MOS/KG (273-304); Platelet Estimate Decreased; Segmented Neutrophils 51 % (50-85); Total Cells Counted 100
[2018-03-20 04:41] LABS: Atypical Lymphocytes Few
[2018-03-20] MEDS: LEVOTHYROXINE 75 MCG TABLET PO SCH (06:03)
[2018-03-20] MEDS: MEROPENEM 1,000 MG in SODIUM CHLORIDE 0.9% 100 ML IV SCH ×2 (07:52→18:26)
[2018-03-20] MEDS: POLYETHYLENE GLYCOL POWDER 17 GM PACK PO SCH (09:29)
[2018-03-20] MEDS: PANTOPRAZOLE 40 MG TABLET PO SCH (09:29)
[2018-03-20] MEDS: CLOPIDOGREL 75 MG TABLET PO SCH (09:29)
[2018-03-20] MEDS: predniSONE 20 MG TABLET PO SCH (09:30)
[2018-03-20] MEDS: INSULIN REGULAR 100 UNIT/ML SUBCUT SCH ×4 (09:31→21:21)
[2018-03-20] MEDS: MAGNESIUM GLUCONATE 200 MG/ML 30 ML/BOTTLE PO SCH ×2 (09:31→21:22)
[2018-03-20] MEDS: APIXABAN 5 MG TABLET PO SCH ×2 (09:31→21:22)
[2018-03-20] MEDS: ALLOPURINOL 100 MG TABLET PO SCH (09:32)
[2018-03-20] MEDS: SUMAtriptan 25 MG TABLET PO PRN (10:07)
[2018-03-20] MEDS: DIGOXIN 0.125 MG TABLET PO SCH (13:30)
[2018-03-20] MEDS: ROSUVASTATIN 10 MG TABLET PO SCH (21:21)
[2018-03-20] MEDS: INSULIN GLARGINE 100 UNIT/ML SUBCUT SCH (21:21)
[2018-03-20] MEDS: MIRTAZAPINE 15 MG TABLET PO SCH (21:22)
[2018-03-21] MEDS: LEVOTHYROXINE 75 MCG TABLET PO SCH (06:33)
[2018-03-21] MEDS: MEROPENEM 1,000 MG in SODIUM CHLORIDE 0.9% 100 ML IV SCH (08:59)
[2018-03-21] MEDS: INSULIN REGULAR 100 UNIT/ML SUBCUT SCH ×2 (09:03→12:29)
[2018-03-21] MEDS: MORPHINE 4 MG/1 ML VIAL IV PRN (09:03)
[2018-03-21] MEDS: CLOPIDOGREL 75 MG TABLET PO SCH (09:07)
[2018-03-21] MEDS: predniSONE 20 MG TABLET PO SCH (09:07)
[2018-03-21] MEDS: POLYETHYLENE GLYCOL POWDER 17 GM PACK PO SCH (09:07)
[2018-03-21] MEDS: PANTOPRAZOLE 40 MG TABLET PO SCH (09:08)
[2018-03-21] MEDS: APIXABAN 5 MG TABLET PO SCH (09:08)
[2018-03-21] MEDS: ALLOPURINOL 100 MG TABLET PO SCH (09:08)
[2018-03-21] MEDS: MAGNESIUM GLUCONATE 200 MG/ML 30 ML/BOTTLE PO SCH (09:11)
[2018-03-21 12:09] VITALS: BP 108/73
[2018-03-21] MEDS: DIGOXIN 0.125 MG TABLET PO SCH (12:31)
[2018-03-21] MEDS: SUMAtriptan 25 MG TABLET PO PRN (12:31)
[2018-03-21 12:45] LABS: Basophils % 0.3 % (0.0-0.8); Eosinophils % 0.2 % (0.00-10.9); Hematocrit 28.8 VOL% (42.0-52.0); Hemoglobin 9.1 GM/DL (14.0-18.0); Immature Granulocytes % 12.7 %; Immature Granulocytes Absolute 0.75 #; Lymphocytes # 0.8 10*3/uL (1.4-4.0); Mean Corpuscular HGB Conc 31.6 GM/DL (32-36); Mean Corpuscular Hemoglobin 28 PG (27-34); Mean Platelet Volume 12.3 FL (9.6-12.0); Monocytes # 0.4 10*3/uL (0.11-0.8); Monocytes % 6.4 % (1.7-12.7); Neutrophils % 67.4 % (38.7-73.9); Platelet Count 125 T/CUMM (130-400); Red Cell Distribution Width 15.1 % (9.3-17.3); White Blood Count 5.9 T/CUMM (4-12)
[2018-03-21 13:52] LABS: Band Neutrophils 7 % (0-10); Eosinophils 1 % (0-10); Hypochromasia 1+; Lymphocytes 12 % (20-55); Segmented Neutrophils 67 % (50-85); Total Cells Counted 100
[2018-03-21 13:53] LABS: Platelet Estimate Adequate
== END 2018-03-21 13:45 | disposition home health service (06) | DRG 309 ==
LOC: EDBD 19:23 → EDUNIT# 19:23 → N.ED 19:23 → N.EDINP 23:23 → N.TELEN 03-18 00:09
PROVIDERS: ADMIT Internal Medicine; ATTEND Internal Medicine

== ENCOUNTER 2018-04-01 02:41 | Inpatient (IN) ==
[2018-04-01] MEDS ORDERED: SODIUM CHLORIDE 0.9% 1,000 ML IV STA ×2 (03:11→05:12)
[2018-04-01 03:53] LABS: Basophils # 0.1 10*3/uL (0.0-0.2); Basophils % 0.2 % (0.0-0.8); Hematocrit 24.5 VOL% (42.0-52.0); Hemoglobin 7.5 GM/DL (14.0-18.0); Immature Granulocytes % 16.2 %; Immature Granulocytes Absolute 4.54 #; Lymphocytes # 4.6 10*3/uL (1.4-4.0); Lymphocytes % 16.4 % (21.2-54.2); Mean Corpuscular HGB Conc 30.6 GM/DL (32-36); Mean Corpuscular Hemoglobin 28 PG (27-34); Mean Corpuscular Volume 91.1 FL (87-102); Mean Platelet Volume 12.7 FL (9.6-12.0); Monocytes # 5.2 10*3/uL (0.11-0.8); Monocytes % 18.6 % (1.7-12.7); NRBC # 0.11 10*3/uL; Neutrophils # 13.6 10*3/uL (1.4-7.4); Neutrophils % 48.6 % (38.7-73.9); Platelet Count 184 T/CUMM (130-400); Red Blood Count 2.69 MC/CUMM (3.8-5.5); Red Cell Distribution Width 15.3 % (9.3-17.3); White Blood Count 28.1 T/CUMM (4-12)
[2018-04-01 04:02] LABS: INR 1.2; PT Patient Result 12.8 SECS; Partial Thromboplastin Time 29.4 SECS (0-40)
[2018-04-01 04:17] LABS: Apearance,Urine CLOUDY (Clear); Bilirubin,Urine Negative (Negative); Blood, Urine Large mg/dL (Negative); Glucose,Urine (UA) 150 mg/dL (Negative); Ketones,Urine Negative (Negative); Nitrite,Urine Negative (Negative); Protein,Urine >=500 MG/DL; RBC,Urine 23145 /HPF (0-4); Urine Color Red (Yellow); Urine Urobilinogen < 2.0 EU/DL (0.2-1.0)
[2018-04-01 04:23] LABS: Alanine Aminotransferase 17 U/L (16-61); Albumin 2.1 G/DL (3.4-5.0); Alkaline Phosphatase 86 U/L (45-117); Aspartate Amino Transferase 12 U/L (0-37); Bilirubin,Total < 0.39 MG/DL (0.2-1.0); Blood Urea Nitrogen 21 MG/DL (7-18); Calcium 8.2 MG/DL (8.5-10.1); Glucose 228 MG/DL (74-106); Osmolality,Calculated 282.8 MOS/KG (273-304); Potassium 4.1 MMOL/L (3.5-5.1); Sodium 137 MMOL/L (136-145); Total Protein 6.2 G/DL (6.4-8.3)
[2018-04-01 04:51] LABS: Band Neutrophils 9 % (0-10); Hypochromasia 1+; Lymphocytes 19 % (20-55); Myelocytes 1 %; Nucleated Red Blood Cells 1 (0-5); Platelet Estimate Adequate; Segmented Neutrophils 46 % (50-85); Total Cells Counted 100
[2018-04-01] MEDS ORDERED: ONDANSETRON 4 MG/2 ML VIAL ONE ×2 (05:11→13:14)
[2018-04-01] MEDS ORDERED: ONDANSETRON 4 MG/2 ML VIAL IV ONE (05:12)
[2018-04-01] MEDS ORDERED: PIPERACILLIN/TAZOBACTAM 3,375 MG in SODIUM CHLORIDE 0.9% 100 ML IV ONE (05:12)
[2018-04-01] MEDS ORDERED: MORPHINE 4 MG/1 ML VIAL ONE (05:12)
[2018-04-01] MEDS ORDERED: MORPHINE 4 MG/1 ML VIAL IV STA (05:12)
[2018-04-01] MEDS ORDERED: SODIUM CHLORIDE 0.9% 1,000 ML IV PRN ×2 (05:52→19:36)
[2018-04-01] MEDS ORDERED: DOCUSATE SODIUM 100 MG CAPSULE PO PRN (06:01)
[2018-04-01] MEDS ORDERED: GLUCAGON 1 MG VIAL IM PRN (06:01)
[2018-04-01] MEDS ORDERED: DEXTROSE 50% 25 GM/50 ML VIAL IV PRN (06:01)
[2018-04-01] MEDS ORDERED: ONDANSETRON 4 MG/2 ML VIAL IV PRN (06:01)
[2018-04-01 06:14] LABS: Hematocrit 20.5 VOL% (42.0-52.0)
[2018-04-01 06:16] LABS: Hemoglobin 6.4 GM/DL (14.0-18.0)
[2018-04-01] MEDS ORDERED: cefTRIAXone 1,000 MG in SYRINGE 1 EACH IV ONE (08:30)
[2018-04-01] MEDS: INSULIN LISPRO 100 UNIT/ML SUBCUT SCH ×4 (08:43→21:25)
[2018-04-01] MEDS: methylPREDNISolone SOD SUC 40 MG/1 ML VIAL IV SCH ×2 (10:06→21:24)
[2018-04-01] MEDS: LACTATED RINGERS 1,000 ML IV SCH (12:15)
[2018-04-01] MEDS ORDERED: PROPOFOL 200 MG/20 ML VIAL IV ONE (13:13)
[2018-04-01] MEDS ORDERED: MIDAZOLAM 2 MG/2 ML VIAL ONE (13:13)
[2018-04-01] MEDS ORDERED: SEVOFLURANE 1 UNIT/15 MINUTE INH ONE (13:13)
[2018-04-01] MEDS ORDERED: fentaNYL 100 MCG/2 ML VIAL ONE (13:13)
[2018-04-01] MEDS ORDERED: PHENYLEPHRINE 1 MG/10 ML SYRINGE IV ONE (13:14)
[2018-04-01] MEDS: SODIUM CHLORIDE 0.9% 1,000 ML IV SCH (15:20)
[2018-04-01] MEDS: VANCOMYCIN INJ 1,000 MG in SODIUM CHLORIDE 0.9% 250 ML IV SCH (15:21)
[2018-04-01] MEDS: PIPERACILLIN/TAZOBACTAM 3,375 MG in SODIUM CHLORIDE 0.9% 100 ML IV SCH (17:45)
[2018-04-01 18:53] LABS: Hematocrit 21.8 VOL% (42.0-52.0); Hemoglobin 6.8 GM/DL (14.0-18.0)
[2018-04-01] MEDS: MIRTAZAPINE 15 MG TABLET PO SCH (21:23)
[2018-04-02] MEDS: PIPERACILLIN/TAZOBACTAM 3,375 MG in SODIUM CHLORIDE 0.9% 100 ML IV SCH ×3 (01:55→17:35)
[2018-04-02] MEDS ORDERED: BELLADONNA/OPIUM 30 MG SUPP RECTAL PRN (02:32)
[2018-04-02 03:17] LABS: Calcium 7.7 MG/DL (8.5-10.1); Osmolality,Calculated 286.5 MOS/KG (273-304); Potassium 4.6 MMOL/L (3.5-5.1)
[2018-04-02 03:20] LABS: Basophils # 0.1 10*3/uL (0.0-0.2); Basophils % 0.2 % (0.0-0.8); Hematocrit 27.2 VOL% (42.0-52.0); Immature Granulocytes % 12.3 %; Lymphocytes # 1.3 10*3/uL (1.4-4.0); Lymphocytes % 5.4 % (21.2-54.2); Mean Corpuscular HGB Conc 32.4 GM/DL (32-36); Mean Corpuscular Hemoglobin 28 PG (27-34); Mean Corpuscular Volume 85.3 FL (87-102); Mean Platelet Volume 12.5 FL (9.6-12.0); Monocytes # 4.5 10*3/uL (0.11-0.8); Neutrophils # 14.8 10*3/uL (1.4-7.4); Neutrophils % 63.1 % (38.7-73.9); Platelet Count 106 T/CUMM (130-400); Red Blood Count 3.19 MC/CUMM (3.8-5.5); Red Cell Distribution Width 16.6 % (9.3-17.3); White Blood Count 23.5 T/CUMM (4-12)
[2018-04-02 03:23] LABS: Hemoglobin 8.8 GM/DL (14.0-18.0)
[2018-04-02] MEDS: VANCOMYCIN INJ 1,000 MG in SODIUM CHLORIDE 0.9% 250 ML IV SCH ×2 (03:55→15:27)
[2018-04-02] MEDS: SODIUM CHLORIDE 0.9% 1,000 ML IV SCH ×3 (04:02→23:27)
[2018-04-02 04:39] LABS: Band Neutrophils 15 % (0-10); Eosinophils 1 % (0-10); Hypochromasia Slight; Lymphocytes 8 % (20-55); Metamyelocytes 9 %; Platelet Estimate Decreased; Segmented Neutrophils 50 % (50-85); Total Cells Counted 100
[2018-04-02] MEDS: LEVOTHYROXINE 75 MCG TABLET PO SCH (06:27)
[2018-04-02] MEDS: INSULIN LISPRO 100 UNIT/ML SUBCUT SCH ×4 (08:10→20:31)
[2018-04-02 09:45] LABS: Hematocrit 27.8 VOL% (42.0-52.0)
[2018-04-02] MEDS: methylPREDNISolone SOD SUC 40 MG/1 ML VIAL IV SCH ×2 (09:52→20:31)
[2018-04-02] MEDS: ACETAMINOPHEN 325 MG TABLET PO PRN ×2 (11:33→16:45)
[2018-04-02] MEDS: DIGOXIN 0.125 MG TABLET PO SCH (13:25)
[2018-04-02] MEDS: LACTATED RINGERS 1,000 ML IV SCH (14:12)
[2018-04-02] MEDS ORDERED: SUMAtriptan 25 MG TABLET PO PRN (14:45)
[2018-04-02] MEDS: CLOPIDOGREL 75 MG TABLET PO SCH (15:26)
[2018-04-02] MEDS: MIRTAZAPINE 15 MG TABLET PO SCH (20:31)
[2018-04-03] MEDS: PIPERACILLIN/TAZOBACTAM 3,375 MG in SODIUM CHLORIDE 0.9% 100 ML IV SCH ×2 (01:35→08:28)
[2018-04-03] MEDS: VANCOMYCIN INJ 1,000 MG in SODIUM CHLORIDE 0.9% 250 ML IV SCH (03:21)
[2018-04-03 05:19] LABS: Basophils % 0.2 % (0.0-0.8); Hemoglobin 8.2 GM/DL (14.0-18.0); Immature Granulocytes % 11.9 %; Immature Granulocytes Absolute 2.07 #; Lymphocytes # 1.4 10*3/uL (1.4-4.0); Lymphocytes % 7.9 % (21.2-54.2); Mean Corpuscular HGB Conc 31.5 GM/DL (32-36); Mean Corpuscular Hemoglobin 27 PG (27-34); Mean Corpuscular Volume 86.4 FL (87-102); Mean Platelet Volume 12.2 FL (9.6-12.0); Monocytes # 3.6 10*3/uL (0.11-0.8); Monocytes % 20.5 % (1.7-12.7); NRBC # 0.02 10*3/uL; Neutrophils # 10.3 10*3/uL (1.4-7.4); Neutrophils % 59.5 % (38.7-73.9); Red Blood Count 3.01 MC/CUMM (3.8-5.5); White Blood Count 17.4 T/CUMM (4-12)
[2018-04-03 05:26] LABS: Platelet Count 60 T/CUMM (130-400)
[2018-04-03 05:28] LABS: Calcium 7.8 MG/DL (8.5-10.1); Osmolality,Calculated 284.5 MOS/KG (273-304); Potassium 4.4 MMOL/L (3.5-5.1)
[2018-04-03 05:41] LABS: Band Neutrophils 12 % (0-10); Hypochromasia 1+; Lymphocytes 5 % (20-55); Myelocytes 3 %; Platelet Estimate Decreased; Segmented Neutrophils 52 % (50-85); Total Cells Counted 100
[2018-04-03] MEDS: LEVOTHYROXINE 75 MCG TABLET PO SCH (06:32)
[2018-04-03] MEDS ORDERED: SODIUM CHLORIDE 0.9% 1,000 ML IV PRN (07:49)
[2018-04-03] MEDS: CLOPIDOGREL 75 MG TABLET PO SCH (08:24)
[2018-04-03] MEDS: INSULIN LISPRO 100 UNIT/ML SUBCUT SCH ×3 (08:25→16:48)
[2018-04-03] MEDS: methylPREDNISolone SOD SUC 40 MG/1 ML VIAL IV SCH (08:26)
[2018-04-03] MEDS ORDERED: POLYETHYLENE GLYCOL POWDER 17 GM PACK PO SCH (09:00)
[2018-04-03] MEDS: LACTATED RINGERS 1,000 ML IV SCH (13:06)
[2018-04-03] MEDS: DIGOXIN 0.125 MG TABLET PO SCH (13:09)
[2018-04-03 16:58] VITALS: BP 158/91
[2018-04-03 17:23] LABS: Hematocrit 31.4 VOL% (42.0-52.0)
[2018-04-03 17:24] LABS: Hemoglobin 10.3 GM/DL (14.0-18.0)
== END 2018-04-03 18:36 | disposition home or self-care (01) | DRG 813 ==
LOC: EDUNIT# → EDBD → N.ED 02:41 → N.EDINP 05:50 → N.3E 06:45
PROVIDERS: ADMIT Internal Medicine; ATTEND Internal Medicine

== ENCOUNTER 2018-04-03 20:38 | Inpatient (IN) ==
[2018-04-03] MEDS ORDERED: ONDANSETRON 4 MG/2 ML VIAL IV STA (21:18)
[2018-04-03] MEDS ORDERED: fentaNYL 100 MCG/2 ML VIAL IV STA (21:18)
[2018-04-03 22:18] LABS: Albumin 2.3 G/DL (3.4-5.0); Bilirubin,Total 0.4 MG/DL (0.2-1.0); Calcium 8.1 MG/DL (8.5-10.1); Osmolality,Calculated 285.7 MOS/KG (273-304); Potassium 4.1 MMOL/L (3.5-5.1); Total Protein 6.7 G/DL (6.4-8.3); Troponin I < 0.015 NG/ML (0.00-0.045)
[2018-04-03 22:34] LABS: Basophils # 0.1 10*3/uL (0.0-0.2); Basophils % 0.4 % (0.0-0.8); Hematocrit 31.9 VOL% (42.0-52.0); Hemoglobin 10.3 GM/DL (14.0-18.0); Immature Granulocytes % 17.7 %; Lymphocytes # 2.7 10*3/uL (1.4-4.0); Lymphocytes % 9.5 % (21.2-54.2); Mean Corpuscular HGB Conc 32.3 GM/DL (32-36); Mean Corpuscular Hemoglobin 28 PG (27-34); Mean Corpuscular Volume 86.4 FL (87-102); Mean Platelet Volume 11.8 FL (9.6-12.0); Monocytes # 6.5 10*3/uL (0.11-0.8); Monocytes % 22.8 % (1.7-12.7); NRBC # 0.13 10*3/uL; Neutrophils # 14.1 10*3/uL (1.4-7.4); Neutrophils % 49.6 % (38.7-73.9); Platelet Count 110 T/CUMM (130-400); Red Blood Count 3.69 MC/CUMM (3.8-5.5); White Blood Count 28.3 T/CUMM (4-12)
[2018-04-03 22:42] LABS: INR 1.2; PT Patient Result 12.5 SECS
[2018-04-03 22:54] LABS: Band Neutrophils 11 % (0-10); Lymphocytes 9 % (20-55); Metamyelocytes 1 %; Myelocytes 4 %; Nucleated Red Blood Cells 2 (0-5); Segmented Neutrophils 51 % (50-85); Total Cells Counted 100
[2018-04-03 22:55] LABS: Platelet Estimate Adequate
[2018-04-03] MEDS ORDERED: GLUCAGON 1 MG VIAL IM PRN (23:05)
[2018-04-03] MEDS: SODIUM CHLORIDE 0.9% 1,000 ML IV STA ×2 (23:05→23:08)
[2018-04-03] MEDS ORDERED: DEXTROSE 50% 25 GM/50 ML SYRINGE IV PRN (23:05)
[2018-04-03] MEDS ORDERED: LACTATED RINGERS 1,000 ML IV ONE (23:09)
[2018-04-04] MEDS: MIRTAZAPINE 15 MG TABLET PO SCH ×2 (01:34→21:24)
[2018-04-04] MEDS: ACETAMINOPHEN/CODEINE 300-30 MG TABLET PO PRN ×3 (01:35→19:42)
[2018-04-04] MEDS: SODIUM CHLORIDE 0.9% 1,000 ML IV SCH ×3 (01:36→17:17)
[2018-04-04] MEDS: LEVOTHYROXINE 75 MCG TABLET PO SCH (06:15)
[2018-04-04 06:38] LABS: Basophils # 0.1 10*3/uL (0.0-0.2); Basophils % 0.3 % (0.0-0.8); Hematocrit 26.6 VOL% (42.0-52.0); Hemoglobin 8.6 GM/DL (14.0-18.0); Immature Granulocytes % 19.2 %; Immature Granulocytes Absolute 4.48 #; Lymphocytes # 2.5 10*3/uL (1.4-4.0); Lymphocytes % 10.5 % (21.2-54.2); Mean Corpuscular HGB Conc 32.3 GM/DL (32-36); Mean Corpuscular Hemoglobin 28 PG (27-34); Mean Corpuscular Volume 86.4 FL (87-102); Mean Platelet Volume 12.3 FL (9.6-12.0); Monocytes # 6.2 10*3/uL (0.11-0.8); Monocytes % 26.7 % (1.7-12.7); NRBC # 0.04 10*3/uL; Neutrophils # 10.1 10*3/uL (1.4-7.4); Neutrophils % 43.3 % (38.7-73.9); Red Blood Count 3.08 MC/CUMM (3.8-5.5); Red Cell Distribution Width 16.2 % (9.3-17.3); White Blood Count 23.4 T/CUMM (4-12)
[2018-04-04 06:44] LABS: Platelet Count 94 T/CUMM (130-400)
[2018-04-04 06:51] LABS: Calcium 7.6 MG/DL (8.5-10.1); Osmolality,Calculated 285.4 MOS/KG (273-304); Potassium 3.7 MMOL/L (3.5-5.1)
[2018-04-04 07:02] LABS: Band Neutrophils 9 % (0-10); Hypochromasia 1+; Lymphocytes 15 % (20-55); Myelocytes 2 %; Ovalocytes Slight; Platelet Estimate Decreased; Segmented Neutrophils 46 % (50-85); Total Cells Counted 100
[2018-04-04] MEDS: INSULIN REGULAR 100 UNIT/ML SUBCUT SCH ×4 (08:50→21:25)
[2018-04-04] MEDS: CLOPIDOGREL 75 MG TABLET PO SCH (08:51)
[2018-04-04] MEDS: PANTOPRAZOLE 40 MG TABLET PO SCH (08:52)
[2018-04-04] MEDS: predniSONE 10 MG TABLET PO SCH (08:53)
[2018-04-04] MEDS: CEFUROXIME 250 MG TABLET PO SCH ×2 (08:53→21:23)
[2018-04-04] MEDS: POLYETHYLENE GLYCOL POWDER 17 GM PACK PO SCH (08:55)
[2018-04-04] MEDS ORDERED: predniSONE 10 MG TABLET PO SCH (09:00)
[2018-04-04] MEDS: ONDANSETRON 4 MG/2 ML VIAL IV PRN (09:05)
[2018-04-04] MEDS: ALLOPURINOL 100 MG TABLET PO SCH (10:22)
[2018-04-04] MEDS: DIGOXIN 0.125 MG TABLET PO SCH (12:55)
[2018-04-04 15:04] LABS: Hematocrit 24.7 VOL% (42.0-52.0); Hemoglobin 7.9 GM/DL (14.0-18.0)
[2018-04-04] MEDS ORDERED: SODIUM CHLORIDE 0.9% 1,000 ML IV PRN (17:29)
[2018-04-04 19:28] LABS: Apearance,Urine CLEAR (Clear); Bilirubin,Urine Negative (Negative); Blood, Urine Large mg/dL (Negative); Glucose,Urine (UA) 50 mg/dL (Negative); Ketones,Urine Negative (Negative); Mucus,Urine Occasional /LPF (Occasional); Nitrite,Urine Negative (Negative); Protein,Urine Negative; RBC,Urine 60 /HPF (0-4); Urine Color Colorless (Yellow); Urine Specific Gravity 1.004 (1.001-1.035); Urine Urobilinogen < 2.0 EU/DL (0.2-1.0)
[2018-04-04] MEDS: INSULIN GLARGINE 100 UNIT/ML SUBCUT SCH (21:24)
[2018-04-05] MEDS: ACETAMINOPHEN/CODEINE 300-30 MG TABLET PO PRN ×3 (02:25→21:20)
[2018-04-05] MEDS: SODIUM CHLORIDE 0.9% 1,000 ML IV SCH ×3 (02:26→22:55)
[2018-04-05] MEDS: LEVOTHYROXINE 75 MCG TABLET PO SCH (06:32)
[2018-04-05 06:35] LABS: Basophils # 0.1 10*3/uL (0.0-0.2); Basophils % 0.2 % (0.0-0.8); Hematocrit 28.4 VOL% (42.0-52.0); Hemoglobin 9.3 GM/DL (14.0-18.0); Immature Granulocytes % 12.6 %; Immature Granulocytes Absolute 2.54 #; Lymphocytes # 1.6 10*3/uL (1.4-4.0); Lymphocytes % 8.1 % (21.2-54.2); Mean Corpuscular HGB Conc 32.7 GM/DL (32-36); Mean Corpuscular Hemoglobin 28 PG (27-34); Mean Corpuscular Volume 85.5 FL (87-102); Mean Platelet Volume 12.4 FL (9.6-12.0); Monocytes # 5.5 10*3/uL (0.11-0.8); Monocytes % 27.1 % (1.7-12.7); NRBC # 0.02 10*3/uL; Neutrophils # 10.5 10*3/uL (1.4-7.4); Red Blood Count 3.32 MC/CUMM (3.8-5.5); Red Cell Distribution Width 16.1 % (9.3-17.3); White Blood Count 20.1 T/CUMM (4-12)
[2018-04-05 06:39] LABS: Platelet Count 52 T/CUMM (130-400)
[2018-04-05 07:00] LABS: Anisocytosis 1+; Band Neutrophils 25 % (0-10); Lymphocytes 22 % (20-55); Platelet Estimate Decreased; Segmented Neutrophils 23 % (50-85); Total Cells Counted 100
[2018-04-05] MEDS: POLYETHYLENE GLYCOL POWDER 17 GM PACK PO SCH (09:23)
[2018-04-05] MEDS: PANTOPRAZOLE 40 MG TABLET PO SCH (09:24)
[2018-04-05] MEDS: CEFUROXIME 250 MG TABLET PO SCH ×2 (09:24→21:13)
[2018-04-05] MEDS: predniSONE 10 MG TABLET PO SCH (09:24)
[2018-04-05] MEDS: CLOPIDOGREL 75 MG TABLET PO SCH (09:24)
[2018-04-05] MEDS: ALLOPURINOL 100 MG TABLET PO SCH (09:24)
[2018-04-05] MEDS: INSULIN REGULAR 100 UNIT/ML SUBCUT SCH ×4 (09:25→21:12)
[2018-04-05] MEDS: DIGOXIN 0.125 MG TABLET PO SCH (13:37)
[2018-04-05] MEDS: INSULIN GLARGINE 100 UNIT/ML SUBCUT SCH (21:13)
[2018-04-05] MEDS: MIRTAZAPINE 15 MG TABLET PO SCH (21:13)
[2018-04-05] MEDS: SUMAtriptan 25 MG TABLET PO PRN (22:55)
[2018-04-06 04:44] LABS: Basophils % 0.2 % (0.0-0.8); Hematocrit 29.1 VOL% (42.0-52.0); Hemoglobin 9.3 GM/DL (14.0-18.0); Immature Granulocytes Absolute 2.76 #; Lymphocytes % 9.3 % (21.2-54.2); Mean Corpuscular Hemoglobin 28 PG (27-34); Mean Corpuscular Volume 86.9 FL (87-102); Mean Platelet Volume 12.1 FL (9.6-12.0); Monocytes # 5.3 10*3/uL (0.11-0.8); Monocytes % 24.9 % (1.7-12.7); Neutrophils # 11.2 10*3/uL (1.4-7.4); Neutrophils % 52.6 % (38.7-73.9); Red Blood Count 3.35 MC/CUMM (3.8-5.5); White Blood Count 21.2 T/CUMM (4-12)
[2018-04-06 04:52] LABS: Platelet Count 34 T/CUMM (130-400)
[2018-04-06 05:03] LABS: Calcium 7.7 MG/DL (8.5-10.1); Osmolality,Calculated 275.5 MOS/KG (273-304); Potassium 3.4 MMOL/L (3.5-5.1)
[2018-04-06] MEDS: SODIUM CHLORIDE 0.9% 1,000 ML IV SCH ×3 (06:23→17:17)
[2018-04-06] MEDS: LEVOTHYROXINE 75 MCG TABLET PO SCH (06:23)
[2018-04-06 06:54] LABS: Band Neutrophils 13 % (0-10); Lymphocytes 15 % (20-55); Myelocytes 3 %; Segmented Neutrophils 43 % (50-85); Total Cells Counted 100
[2018-04-06 06:55] LABS: Anisocytosis 1+; Platelet Estimate Decreased
[2018-04-06] MEDS ORDERED: MAGNESIUM SULF RIDER 4 GM in PREMIX 1 EACH IV PRN (09:45)
[2018-04-06] MEDS ORDERED: SODIUM CHLORIDE 0.9% 1,000 ML IV PRN (11:20)
[2018-04-06] MEDS: BUTALBITAL/ACETAMIN/CAFFEINE 50-325-40 MG TABLET PO PRN (12:06)
[2018-04-06] MEDS: DIGOXIN 0.125 MG TABLET PO SCH (12:19)
[2018-04-06] MEDS: CEFUROXIME 250 MG TABLET PO SCH ×2 (12:21→22:27)
[2018-04-06] MEDS: predniSONE 10 MG TABLET PO SCH (12:22)
[2018-04-06] MEDS: PANTOPRAZOLE 40 MG TABLET PO SCH (12:23)
[2018-04-06] MEDS: INSULIN REGULAR 100 UNIT/ML SUBCUT SCH ×4 (12:25→22:30)
[2018-04-06] MEDS: ALLOPURINOL 100 MG TABLET PO SCH (12:32)
[2018-04-06] MEDS: CLOPIDOGREL 75 MG TABLET PO SCH (12:32)
[2018-04-06] MEDS: POLYETHYLENE GLYCOL POWDER 17 GM PACK PO SCH (12:45)
[2018-04-06] MEDS: MAGNESIUM SULF RIDER 2 GM in PREMIX 1 EACH IV PRN (17:20)
[2018-04-06] MEDS: INSULIN GLARGINE 100 UNIT/ML SUBCUT SCH (22:26)
[2018-04-06] MEDS: MIRTAZAPINE 15 MG TABLET PO SCH (22:27)
[2018-04-07 06:03] LABS: Basophils % 0.2 % (0.0-0.8); Hematocrit 28.2 VOL% (42.0-52.0); Hemoglobin 9.1 GM/DL (14.0-18.0); Immature Granulocytes % 13.5 %; Immature Granulocytes Absolute 2.67 #; Lymphocytes # 1.7 10*3/uL (1.4-4.0); Lymphocytes % 8.6 % (21.2-54.2); Mean Corpuscular HGB Conc 32.3 GM/DL (32-36); Mean Corpuscular Hemoglobin 28 PG (27-34); Mean Platelet Volume 12.3 FL (9.6-12.0); Monocytes % 25.2 % (1.7-12.7); NRBC # 0.02 10*3/uL; Neutrophils # 10.5 10*3/uL (1.4-7.4); Neutrophils % 52.5 % (38.7-73.9); Red Blood Count 3.24 MC/CUMM (3.8-5.5); Red Cell Distribution Width 15.6 % (9.3-17.3); White Blood Count 19.9 T/CUMM (4-12)
[2018-04-07 06:12] LABS: Calcium 7.8 MG/DL (8.5-10.1); Osmolality,Calculated 273.7 MOS/KG (273-304); Platelet Count 61 T/CUMM (130-400); Potassium 3.2 MMOL/L (3.5-5.1)
[2018-04-07] MEDS: PANTOPRAZOLE 40 MG TABLET PO SCH ×2 (06:24→09:38)
[2018-04-07] MEDS: LEVOTHYROXINE 75 MCG TABLET PO SCH (06:24)
[2018-04-07] MEDS: ACETAMINOPHEN/CODEINE 300-30 MG TABLET PO PRN ×2 (06:24→21:33)
[2018-04-07] MEDS: SODIUM CHLORIDE 0.9% 1,000 ML IV SCH ×3 (06:25→18:25)
[2018-04-07 08:33] LABS: Band Neutrophils 19 % (0-10); Lymphocytes 12 % (20-55); Segmented Neutrophils 57 % (50-85); Total Cells Counted 100
[2018-04-07 08:34] LABS: Hypochromasia 1+; Platelet Estimate Decreased; Polychromasia Slight
[2018-04-07] MEDS: POLYETHYLENE GLYCOL POWDER 17 GM PACK PO SCH (09:36)
[2018-04-07] MEDS: BUTALBITAL/ACETAMIN/CAFFEINE 50-325-40 MG TABLET PO PRN (09:37)
[2018-04-07] MEDS: POTASSIUM CHLORIDE 20 MEQ TABLET PO PRN ×3 (09:37→18:39)
[2018-04-07] MEDS: ALLOPURINOL 100 MG TABLET PO SCH (09:37)
[2018-04-07] MEDS: MAGNESIUM SULF RIDER 2 GM in PREMIX 1 EACH IV PRN (09:38)
[2018-04-07] MEDS: CEFUROXIME 250 MG TABLET PO SCH ×2 (09:38→21:33)
[2018-04-07] MEDS: CLOPIDOGREL 75 MG TABLET PO SCH (09:38)
[2018-04-07] MEDS: predniSONE 10 MG TABLET PO SCH (09:38)
[2018-04-07] MEDS: DIGOXIN 0.125 MG TABLET PO SCH (12:23)
[2018-04-07] MEDS: INSULIN REGULAR 100 UNIT/ML SUBCUT SCH ×4 (12:26→21:39)
[2018-04-07] MEDS: MIRTAZAPINE 15 MG TABLET PO SCH (21:33)
[2018-04-07] MEDS: INSULIN GLARGINE 100 UNIT/ML SUBCUT SCH (21:33)
[2018-04-08] MEDS: SODIUM CHLORIDE 0.9% 1,000 ML IV SCH ×3 (05:39→16:10)
[2018-04-08] MEDS: LEVOTHYROXINE 75 MCG TABLET PO SCH (05:39)
[2018-04-08 06:14] LABS: Basophils % 0.2 % (0.0-0.8); Hematocrit 28.6 VOL% (42.0-52.0); Immature Granulocytes % 15.1 %; Immature Granulocytes Absolute 2.87 #; Lymphocytes # 1.8 10*3/uL (1.4-4.0); Lymphocytes % 9.4 % (21.2-54.2); Mean Corpuscular HGB Conc 31.5 GM/DL (32-36); Mean Corpuscular Hemoglobin 28 PG (27-34); Mean Platelet Volume 12.4 FL (9.6-12.0); Monocytes % 26.3 % (1.7-12.7); NRBC # 0.02 10*3/uL; Neutrophils # 9.3 10*3/uL (1.4-7.4); Platelet Count 49 T/CUMM (130-400); Red Blood Count 3.25 MC/CUMM (3.8-5.5); Red Cell Distribution Width 15.8 % (9.3-17.3)
[2018-04-08 06:33] LABS: Calcium 7.9 MG/DL (8.5-10.1); Osmolality,Calculated 276.4 MOS/KG (273-304); Potassium 3.5 MMOL/L (3.5-5.1)
[2018-04-08 06:45] LABS: Band Neutrophils 5 % (0-10); Lymphocytes 12 % (20-55); Metamyelocytes 2 %; Myelocytes 3 %; Nucleated Red Blood Cells 1 (0-5); Segmented Neutrophils 61 % (50-85); Total Cells Counted 100
[2018-04-08 06:47] LABS: Hypochromasia 1+; Microcytosis 1+; Platelet Estimate Decreased
[2018-04-08] MEDS: INSULIN REGULAR 100 UNIT/ML SUBCUT SCH ×4 (07:55→22:13)
[2018-04-08] MEDS: BUTALBITAL/ACETAMIN/CAFFEINE 50-325-40 MG TABLET PO PRN ×2 (08:14→13:29)
[2018-04-08] MEDS: POLYETHYLENE GLYCOL POWDER 17 GM PACK PO SCH (09:38)
[2018-04-08] MEDS: PANTOPRAZOLE 40 MG TABLET PO SCH (09:39)
[2018-04-08] MEDS: POTASSIUM CHLORIDE 20 MEQ TABLET PO PRN ×2 (09:39→12:34)
[2018-04-08] MEDS: predniSONE 10 MG TABLET PO SCH (09:39)
[2018-04-08] MEDS: CEFUROXIME 250 MG TABLET PO SCH ×2 (09:40→22:07)
[2018-04-08] MEDS: CLOPIDOGREL 75 MG TABLET PO SCH (09:40)
[2018-04-08] MEDS: ALLOPURINOL 100 MG TABLET PO SCH (09:40)
[2018-04-08] MEDS: DIGOXIN 0.125 MG TABLET PO SCH (12:34)
[2018-04-08] MEDS: SUMAtriptan 25 MG TABLET PO PRN (22:07)
[2018-04-08] MEDS: MIRTAZAPINE 15 MG TABLET PO SCH (22:08)
[2018-04-08] MEDS: INSULIN GLARGINE 100 UNIT/ML SUBCUT SCH (22:18)
[2018-04-09] MEDS: ACETAMINOPHEN/CODEINE 300-30 MG TABLET PO PRN ×4 (00:22→21:08)
[2018-04-09] MEDS: SODIUM CHLORIDE 0.9% 1,000 ML IV SCH ×2 (00:25→09:16)
[2018-04-09] MEDS: BUTALBITAL/ACETAMIN/CAFFEINE 50-325-40 MG TABLET PO PRN (04:13)
[2018-04-09] MEDS: LEVOTHYROXINE 75 MCG TABLET PO SCH (05:25)
[2018-04-09 06:34] LABS: Basophils # 0.1 10*3/uL (0.0-0.2); Basophils % 0.3 % (0.0-0.8); Hematocrit 28.1 VOL% (42.0-52.0); Immature Granulocytes % 16.7 %; Immature Granulocytes Absolute 3.32 #; Lymphocytes # 1.7 10*3/uL (1.4-4.0); Lymphocytes % 8.6 % (21.2-54.2); Mean Corpuscular Hemoglobin 28 PG (27-34); Mean Corpuscular Volume 88.1 FL (87-102); Mean Platelet Volume 12.6 FL (9.6-12.0); Monocytes # 4.1 10*3/uL (0.11-0.8); Monocytes % 20.6 % (1.7-12.7); Neutrophils # 10.7 10*3/uL (1.4-7.4); Neutrophils % 53.8 % (38.7-73.9); Red Blood Count 3.19 MC/CUMM (3.8-5.5); Red Cell Distribution Width 15.9 % (9.3-17.3); White Blood Count 19.9 T/CUMM (4-12)
[2018-04-09 06:35] LABS: Platelet Count 48 T/CUMM (130-400)
[2018-04-09 06:38] LABS: Calcium 7.8 MG/DL (8.5-10.1); Osmolality,Calculated 277.4 MOS/KG (273-304); Potassium 3.7 MMOL/L (3.5-5.1)
[2018-04-09 07:05] LABS: Band Neutrophils 13 % (0-10); Hypochromasia 1+; Lymphocytes 13 % (20-55); Myelocytes 1 %; Ovalocytes Slight; Platelet Estimate Decreased; Segmented Neutrophils 53 % (50-85); Total Cells Counted 100
[2018-04-09 07:06] LABS: Microcytosis 1+
[2018-04-09] MEDS: INSULIN REGULAR 100 UNIT/ML SUBCUT SCH ×4 (07:56→21:08)
[2018-04-09] MEDS: CLOPIDOGREL 75 MG TABLET PO SCH (09:15)
[2018-04-09] MEDS: predniSONE 10 MG TABLET PO SCH (09:15)
[2018-04-09] MEDS: PANTOPRAZOLE 40 MG TABLET PO SCH (09:15)
[2018-04-09] MEDS: MAGNESIUM SULF RIDER 2 GM in PREMIX 1 EACH IV PRN (09:16)
[2018-04-09] MEDS: ALLOPURINOL 100 MG TABLET PO SCH (09:17)
[2018-04-09] MEDS: POLYETHYLENE GLYCOL POWDER 17 GM PACK PO SCH (09:17)
[2018-04-09] MEDS: ONDANSETRON 4 MG/2 ML VIAL IV PRN (09:28)
[2018-04-09] MEDS: DIGOXIN 0.125 MG TABLET PO SCH (12:27)
[2018-04-09] MEDS ORDERED: AMITRIPTYLINE 25 MG TABLET PO SCH (21:00)
[2018-04-09] MEDS: INSULIN GLARGINE 100 UNIT/ML SUBCUT SCH (21:08)
[2018-04-10] MEDS: ACETAMINOPHEN/CODEINE 300-30 MG TABLET PO PRN ×3 (02:08→15:17)
[2018-04-10 04:48] LABS: Basophils # 0.1 10*3/uL (0.0-0.2); Basophils % 0.4 % (0.0-0.8); Hematocrit 29.4 VOL% (42.0-52.0); Hemoglobin 9.3 GM/DL (14.0-18.0); Immature Granulocytes % 17.2 %; Immature Granulocytes Absolute 5.05 #; Lymphocytes # 2.2 10*3/uL (1.4-4.0); Lymphocytes % 7.4 % (21.2-54.2); Mean Corpuscular HGB Conc 31.6 GM/DL (32-36); Mean Corpuscular Hemoglobin 28 PG (27-34); Mean Corpuscular Volume 88.6 FL (87-102); Mean Platelet Volume 12.2 FL (9.6-12.0); Monocytes # 4.8 10*3/uL (0.11-0.8); Monocytes % 16.3 % (1.7-12.7); Neutrophils # 17.3 10*3/uL (1.4-7.4); Neutrophils % 58.7 % (38.7-73.9); Platelet Count 51 T/CUMM (130-400); Red Blood Count 3.32 MC/CUMM (3.8-5.5); Red Cell Distribution Width 15.8 % (9.3-17.3); White Blood Count 29.4 T/CUMM (4-12)
[2018-04-10 05:24] LABS: Band Neutrophils 8 % (0-10); Eosinophils 1 % (0-10); Lymphocytes 10 % (20-55); Myelocytes 2 %; Platelet Estimate Decreased; Segmented Neutrophils 60 % (50-85); Total Cells Counted 100
[2018-04-10 05:25] LABS: Hypochromasia 1+; Microcytosis 1+; Osmolality,Calculated 272.8 MOS/KG (273-304); Potassium 4.1 MMOL/L (3.5-5.1)
[2018-04-10] MEDS: LEVOTHYROXINE 75 MCG TABLET PO SCH (05:52)
[2018-04-10] MEDS: ALLOPURINOL 100 MG TABLET PO SCH (10:39)
[2018-04-10] MEDS: PANTOPRAZOLE 40 MG TABLET PO SCH (10:39)
[2018-04-10] MEDS: POLYETHYLENE GLYCOL POWDER 17 GM PACK PO SCH (10:39)
[2018-04-10] MEDS: CLOPIDOGREL 75 MG TABLET PO SCH (10:40)
[2018-04-10] MEDS: predniSONE 10 MG TABLET PO SCH (10:40)
[2018-04-10] MEDS: MAGNESIUM SULF RIDER 2 GM in PREMIX 1 EACH IV PRN (10:43)
[2018-04-10] MEDS: INSULIN REGULAR 100 UNIT/ML SUBCUT SCH ×3 (11:02→17:13)
[2018-04-10] MEDS ORDERED: PROCHLORPERAZINE 10 MG TABLET PO PRN (11:28)
[2018-04-10] MEDS ORDERED: BUTALBITAL/ACETAMIN/CAFFEINE 50-325-40 MG TABLET PO PRN (11:30)
[2018-04-10] MEDS: CYPROHEPTADINE 4 MG TABLET PO SCH ×2 (12:55→17:13)
[2018-04-10] MEDS: DIGOXIN 0.125 MG TABLET PO SCH (12:56)
[2018-04-10] MEDS: DICLOFENAC 1% GEL 100 GM TUBE TOP SCH ×2 (14:21→17:14)
[2018-04-10 16:01] VITALS: BP 123/70
[2018-04-10 16:47] LABS: Apearance,Urine CLEAR (Clear); Bilirubin,Urine Negative (Negative); Blood, Urine Moderate mg/dL (Negative); Glucose,Urine (UA) >=500 mg/dL (Negative); Ketones,Urine Negative (Negative); Mucus,Urine Occasional /LPF (Occasional); Nitrite,Urine Negative (Negative); Protein,Urine Negative; RBC,Urine 7 /HPF (0-4); Urine Color Yellow (Yellow); Urine Urobilinogen < 2.0 EU/DL (0.2-1.0); WBC,Urine 18 /HPF (0-6)
[2018-04-10] MEDS ORDERED: MIRTAZAPINE 30 MG TABLET PO SCH (21:00)
== END 2018-04-10 18:10 | disposition home or self-care (01) | DRG 813 ==
LOC: N.ED 20:38 → N.EDINP 22:49 → SUATTDRO 22:49 → N.5E 23:53
PROVIDERS: ADMIT Internal Medicine; ATTEND Internal Medicine

== ENCOUNTER 2018-07-20 18:31 | Inpatient (IN) ==
[2018-07-20 19:16] LABS: Basophils # 0.1 10*3/uL (0.0-0.2); Basophils % 0.5 % (0.0-0.8); Hematocrit 29.7 VOL% (42.0-52.0); Hemoglobin 9.3 GM/DL (14.0-18.0); Immature Granulocytes Absolute 2.53 #; Lymphocytes # 2.1 10*3/uL (1.4-4.0); Lymphocytes % 8.1 % (21.2-54.2); Mean Corpuscular HGB Conc 31.3 GM/DL (32-36); Mean Corpuscular Volume 91.7 FL (87-102); Mean Platelet Volume 11.6 FL (9.6-12.0); Monocytes % 27.7 % (1.7-12.7); NRBC # 0.03 10*3/uL; Neutrophils % 53.7 % (38.7-73.9); Platelet Count 100 T/CUMM (130-400); Red Blood Count 3.24 MC/CUMM (3.8-5.5); Red Cell Distribution Width 16.9 % (9.3-17.3); White Blood Count 25.3 T/CUMM (4-12)
[2018-07-20 19:38] LABS: Hypochromasia 1+; Lymphocytes 9 % (20-55); Microcytosis 1+; Ovalocytes Slight; Platelet Estimate Decreased; Polychromasia Slight; Segmented Neutrophils 63 % (50-85); Total Cells Counted 100
[2018-07-20] MEDS ORDERED: ONDANSETRON 4 MG/2 ML VIAL IV STA (21:19)
[2018-07-20] MEDS ORDERED: MORPHINE 4 MG/1 ML VIAL IV STA (21:19)
[2018-07-20] MEDS ORDERED: SODIUM CHLORIDE 0.9% 1,000 ML IV STA (21:20)
[2018-07-20] MEDS ORDERED: CYCLOBENZAPRINE 10 MG TABLET PO STA (21:20)
[2018-07-20 22:04] LABS: Basophils # 0.1 10*3/uL (0.0-0.2); Basophils % 0.3 % (0.0-0.8); Eosinophils # 11.4 10*3/uL (0.0-0.87); Eosinophils % 41.6 % (0.00-10.9); Hemoglobin 8.8 GM/DL (14.0-18.0); Immature Granulocytes % 0.3 %; Immature Granulocytes Absolute 0.09 #; Lymphocytes # 1.3 10*3/uL (1.4-4.0); Lymphocytes % 4.9 % (21.2-54.2); Mean Corpuscular HGB Conc 31.4 GM/DL (32-36); Mean Corpuscular Volume 91.2 FL (87-102); Mean Platelet Volume 12.2 FL (9.6-12.0); Monocytes % 17.4 % (1.7-12.7); NRBC # 0.02 10*3/uL; Neutrophils % 35.5 % (38.7-73.9); Platelet Count 89 T/CUMM (130-400); Red Blood Count 3.07 MC/CUMM (3.8-5.5); Red Cell Distribution Width 16.9 % (9.3-17.3); White Blood Count 27.3 T/CUMM (4-12)
[2018-07-20 22:12] LABS: INR 1.2; PT Patient Result 13.1 SECS; Partial Thromboplastin Time 28.5 SECS (0-40)
[2018-07-20 22:25] LABS: Bilirubin,Total 0.6 MG/DL (0.2-1.0); Total Protein 8.3 G/DL (6.4-8.3)
[2018-07-20 23:04] LABS: Segmented Neutrophils 55 % (50-85)
[2018-07-20 23:05] LABS: Band Neutrophils 8 % (0-10); Lymphocytes 12 % (20-55); Myelocytes 2 %
[2018-07-20 23:08] LABS: Metamyelocytes 2 %
[2018-07-20 23:09] LABS: Anisocytosis 1+; Atypical Lymphocytes Few; Platelet Estimate Decreased; Total Cells Counted 100
[2018-07-21] MEDS ORDERED: PIPERACILLIN/TAZOBACTAM 3,375 MG in SODIUM CHLORIDE 0.9% 100 ML IV STA (00:14)
[2018-07-21] MEDS ORDERED: MORPHINE 4 MG/1 ML VIAL IV STA (00:28)
[2018-07-21] MEDS ORDERED: MORPHINE 4 MG/1 ML VIAL IV PRN ×2 (00:35→00:37)
[2018-07-21] MEDS ORDERED: SODIUM CHLORIDE 0.9% 1,000 ML IV ONE (00:37)
[2018-07-21] MEDS ORDERED: VANCOMYCIN INJ 1,000 MG in SODIUM CHLORIDE 0.9% 250 ML IV SCH (01:00)
[2018-07-21] MEDS ORDERED: SODIUM CHLORIDE 0.9% 1,000 ML IV SCH (01:00)
[2018-07-21] MEDS ORDERED: GLUCAGON 1 MG VIAL IM PRN (01:20)
[2018-07-21] MEDS ORDERED: DEXTROSE 50% 25 GM/50 ML VIAL IV PRN (01:20)
[2018-07-21] MEDS ORDERED: SUMAtriptan 25 MG TABLET PO PRN (01:20)
[2018-07-21] MEDS ORDERED: VANCOMYCIN 1,000 MG VIAL ONE (01:29)
[2018-07-21] MEDS ORDERED: ENOXAPARIN 40 MG/0.4 ML SYRINGE ONE (01:31)
[2018-07-21] MEDS: ENOXAPARIN 40 MG/0.4 ML SYRINGE SUBCUT SCH (01:45)
[2018-07-21 02:12] LABS: Apearance,Urine Slightly Hazy (Clear); Bacteria,Urine Occasional /HPF (Few); Bilirubin,Urine Negative (Negative); Blood, Urine Moderate mg/dL (Negative); Glucose,Urine (UA) Negative (Negative); Ketones,Urine 5 mg/dL (Negative); Nitrite,Urine Negative (Negative); Protein,Urine 30 MG/DL; RBC,Urine 1 /HPF (0-4); Uric Acid Crystals,Urine Many /HPF (<1); Urine Color Yellow (Yellow); Urine Specific Gravity 1.015 (1.001-1.035); Urine Urobilinogen < 2.0 EU/DL (0.2-1.0); WBC,Urine 2 /HPF (0-6)
[2018-07-21] MEDS: LACTATED RINGERS 1,000 ML IV SCH ×3 (03:09→18:24)
[2018-07-21] MEDS: HYDROmorphone 2 MG/1 ML VIAL IV PRN ×4 (03:23→17:42)
[2018-07-21 05:13] LABS: Hematocrit 22.2 VOL% (42.0-52.0); Mean Corpuscular HGB Conc 31.5 GM/DL (32-36); Mean Corpuscular Volume 91.4 FL (87-102); Mean Platelet Volume 12.9 FL (9.6-12.0); Platelet Count 44 T/CUMM (130-400); Red Blood Count 2.43 MC/CUMM (3.8-5.5); Red Cell Distribution Width 16.8 % (9.3-17.3); White Blood Count 18.8 T/CUMM (4-12)
[2018-07-21 05:20] LABS: Calcium 9.1 MG/DL (8.5-10.1); Osmolality,Calculated 283.5 MOS/KG (273-304)
[2018-07-21] MEDS: INSULIN LISPRO 100 UNIT/ML SUBCUT SCH ×3 (06:23→17:40)
[2018-07-21] MEDS: LEVOTHYROXINE 75 MCG TABLET PO SCH (06:24)
[2018-07-21 06:55] LABS: Band Neutrophils 17 % (0-10); Eosinophils 1 % (0-10); Lymphocytes 14 % (20-55); Metamyelocytes 2 %; Myelocytes 1 %; Nucleated Red Blood Cells 1 (0-5); Platelet Estimate Decreased; Segmented Neutrophils 37 % (50-85)
[2018-07-21 06:57] LABS: Total Cells Counted 100
[2018-07-21] MEDS ORDERED: PANTOPRAZOLE 40 MG VIAL IV SCH (09:00)
[2018-07-21] MEDS ORDERED: predniSONE 20 MG TABLET PO SCH (09:00)
[2018-07-21] MEDS ORDERED: PIPERACILLIN/TAZOBACTAM 3,375 MG in SODIUM CHLORIDE 0.9% 100 ML IV SCH (09:00)
[2018-07-21] MEDS ORDERED: VANCOMYCIN INJ 1,250 MG in SODIUM CHLORIDE 0.9% 250 ML IV SCH (09:30)
[2018-07-21] MEDS: FAMOTIDINE 20 MG/2 ML VIAL IV SCH (11:51)
[2018-07-21] MEDS: MEROPENEM 2,000 MG in SODIUM CHLORIDE 0.9% 100 ML IV SCH ×2 (11:52→17:41)
[2018-07-21] MEDS: MAGNESIUM HYDROXIDE SUSP 30 ML UDCUP PO PRN (17:41)
[2018-07-21] MEDS: VANCOMYCIN INJ 1,000 MG in SODIUM CHLORIDE 0.9% 250 ML IV SCH (20:34)
[2018-07-22] MEDS: HYDROmorphone 2 MG/1 ML VIAL IV PRN ×4 (00:32→17:35)
[2018-07-22] MEDS: INSULIN LISPRO 100 UNIT/ML SUBCUT SCH ×4 (00:59→19:14)
[2018-07-22] MEDS: ENOXAPARIN 40 MG/0.4 ML SYRINGE SUBCUT SCH (01:07)
[2018-07-22] MEDS: MEROPENEM 2,000 MG in SODIUM CHLORIDE 0.9% 100 ML IV SCH ×3 (02:49→21:26)
[2018-07-22] MEDS: LACTATED RINGERS 1,000 ML IV SCH ×4 (05:14→21:23)
[2018-07-22 05:18] LABS: Basophils % 0.2 % (0.0-0.8); Hematocrit 23.7 VOL% (42.0-52.0); Hemoglobin 7.3 GM/DL (14.0-18.0); Immature Granulocytes % 9.6 %; Immature Granulocytes Absolute 1.75 #; Lymphocytes % 5.6 % (21.2-54.2); Mean Corpuscular HGB Conc 30.8 GM/DL (32-36); Mean Corpuscular Volume 93.7 FL (87-102); Mean Platelet Volume 11.9 FL (9.6-12.0); Monocytes % 16.8 % (1.7-12.7); NRBC # 0.02 10*3/uL; Neutrophils % 67.8 % (38.7-73.9); Red Blood Count 2.53 MC/CUMM (3.8-5.5); Red Cell Distribution Width 17.3 % (9.3-17.3); White Blood Count 18.3 T/CUMM (4-12)
[2018-07-22 05:19] LABS: Platelet Count 57 T/CUMM (130-400)
[2018-07-22 05:41] LABS: Calcium 9.3 MG/DL (8.5-10.1); Osmolality,Calculated 295.1 MOS/KG (273-304)
[2018-07-22] MEDS: LEVOTHYROXINE 75 MCG TABLET PO SCH (05:45)
[2018-07-22 05:59] LABS: Band Neutrophils 1 % (0-10); Lymphocytes 11 % (20-55); Metamyelocytes 2 %; Myelocytes 2 %; Platelet Estimate Decreased; Segmented Neutrophils 67 % (50-85); Total Cells Counted 100
[2018-07-22 06:00] LABS: Polychromasia Few
[2018-07-22] MEDS ORDERED: diphenhydrAMINE 50 MG/1 ML VIAL IV PRN (08:24)
[2018-07-22] MEDS ORDERED: SODIUM CHLORIDE 0.9% 1,000 ML IV PRN (08:24)
[2018-07-22] MEDS: ONDANSETRON 4 MG/2 ML VIAL IV PRN (09:05)
[2018-07-22] MEDS: methylPREDNISolone SOD SUC 125 MG/2 ML VIAL IV SCH ×2 (09:06→21:24)
[2018-07-22] MEDS: FAMOTIDINE 20 MG/2 ML VIAL IV SCH (12:39)
[2018-07-22] MEDS: hydrALAZINE 20 MG/1 ML VIAL IV PRN (17:38)
[2018-07-22] MEDS: METOPROLOL TARTRATE 25 MG TABLET PO SCH (18:16)
[2018-07-22 18:56] LABS: Troponin I < 0.015 NG/ML (0.00-0.045)
[2018-07-22] MEDS: VANCOMYCIN INJ 1,000 MG in SODIUM CHLORIDE 0.9% 250 ML IV SCH (22:06)
[2018-07-23] MEDS: INSULIN LISPRO 100 UNIT/ML SUBCUT SCH ×4 (00:20→18:56)
[2018-07-23 04:48] LABS: Basophils % 0.2 % (0.0-0.8); Hematocrit 29.2 VOL% (42.0-52.0); Immature Granulocytes % 7.5 %; Lymphocytes # 0.6 10*3/uL (1.4-4.0); Lymphocytes % 4.8 % (21.2-54.2); Mean Corpuscular HGB Conc 32.2 GM/DL (32-36); Mean Platelet Volume 12.8 FL (9.6-12.0); Monocytes % 14.3 % (1.7-12.7); NRBC # 0.02 10*3/uL; Neutrophils % 73.2 % (38.7-73.9); Red Cell Distribution Width 16.6 % (9.3-17.3); White Blood Count 13.4 T/CUMM (4-12)
[2018-07-23 04:53] LABS: Hemoglobin 9.4 GM/DL (14.0-18.0); Platelet Count 42 T/CUMM (130-400); Red Blood Count 3.32 MC/CUMM (3.8-5.5)
[2018-07-23 04:55] LABS: Alanine Aminotransferase < 9 U/L (16-61); Alkaline Phosphatase 52 U/L (45-117); Aspartate Amino Transferase 7 U/L (0-37); Blood Urea Nitrogen 48 MG/DL (7-18); Glucose 228 MG/DL (74-106); Osmolality,Calculated 296.5 MOS/KG (273-304); Total Protein 6.5 G/DL (6.4-8.3)
[2018-07-23 05:10] LABS: Band Neutrophils 9 % (0-10); Hypochromasia 1+; Lymphocytes 4 % (20-55); Metamyelocytes 1 %; Myelocytes 3 %; Ovalocytes Slight; Platelet Estimate Decreased; Segmented Neutrophils 65 % (50-85); Total Cells Counted 100
[2018-07-23] MEDS: LEVOTHYROXINE 75 MCG TABLET PO SCH (05:59)
[2018-07-23] MEDS: MEROPENEM 2,000 MG in SODIUM CHLORIDE 0.9% 100 ML IV SCH (05:59)
[2018-07-23] MEDS ORDERED: ENOXAPARIN 30 MG/0.3 ML SYRINGE SUBCUT SCH (06:00)
[2018-07-23] MEDS: HYDROmorphone 2 MG/1 ML VIAL IV PRN (06:17)
[2018-07-23] MEDS: SODIUM CHLORIDE 0.45% 1,000 ML IV SCH ×2 (07:36→23:24)
[2018-07-23] MEDS ORDERED: diphenhydrAMINE CAP 25 MG CAPSULE PO ONE (08:11)
[2018-07-23] MEDS: MAGNESIUM HYDROXIDE SUSP 30 ML UDCUP PO PRN (09:19)
[2018-07-23] MEDS: METOPROLOL TARTRATE 25 MG TABLET PO SCH ×2 (09:20→21:21)
[2018-07-23] MEDS: GABAPENTIN 100 MG CAPSULE PO SCH ×3 (09:20→21:21)
[2018-07-23] MEDS: methylPREDNISolone SOD SUC 125 MG/2 ML VIAL IV SCH ×2 (09:20→21:22)
[2018-07-23] MEDS: FAMOTIDINE 20 MG/2 ML VIAL IV SCH (09:21)
[2018-07-23] MEDS ORDERED: HYDROmorphone 2 MG/1 ML VIAL IV PRN (10:07)
[2018-07-23] MEDS ORDERED: CLOPIDOGREL 75 MG TABLET PO ONE (13:32)
[2018-07-23] MEDS: CEFEPIME 1,000 MG in SODIUM CHLORIDE 0.9% 100 ML IV SCH (14:25)
[2018-07-23] MEDS: ONDANSETRON 4 MG/2 ML VIAL IV PRN (14:25)
[2018-07-23] MEDS: VANCOMYCIN INJ 1,000 MG in SODIUM CHLORIDE 0.9% 250 ML IV SCH (23:24)
[2018-07-24] MEDS: LACTATED RINGERS 1,000 ML IV SCH (00:02)
[2018-07-24] MEDS: INSULIN LISPRO 100 UNIT/ML SUBCUT SCH ×4 (00:34→17:44)
[2018-07-24] MEDS: CEFEPIME 1,000 MG in SODIUM CHLORIDE 0.9% 100 ML IV SCH ×2 (02:20→17:44)
[2018-07-24] MEDS: hydrALAZINE 20 MG/1 ML VIAL IV PRN (03:50)
[2018-07-24 04:18] LABS: Basophils % 0.3 % (0.0-0.8); Hematocrit 31.4 VOL% (42.0-52.0); Hemoglobin 10.2 GM/DL (14.0-18.0); Immature Granulocytes % 8.7 %; Immature Granulocytes Absolute 1.07 #; Lymphocytes # 0.6 10*3/uL (1.4-4.0); Lymphocytes % 5.1 % (21.2-54.2); Mean Corpuscular HGB Conc 32.5 GM/DL (32-36); Mean Corpuscular Volume 88.2 FL (87-102); Mean Platelet Volume 12.8 FL (9.6-12.0); Monocytes % 11.4 % (1.7-12.7); Neutrophils % 74.5 % (38.7-73.9); Red Blood Count 3.56 MC/CUMM (3.8-5.5); Red Cell Distribution Width 16.7 % (9.3-17.3); White Blood Count 12.4 T/CUMM (4-12)
[2018-07-24 04:22] LABS: Platelet Count 51 T/CUMM (130-400)
[2018-07-24 04:50] LABS: Calcium 9.1 MG/DL (8.5-10.1); Osmolality,Calculated 303.5 MOS/KG (273-304)
[2018-07-24 04:51] LABS: Calcium 8.7 MG/DL (8.5-10.1); Osmolality,Calculated 301.5 MOS/KG (273-304)
[2018-07-24 04:59] LABS: Band Neutrophils 4 % (0-10); Eosinophils 1 % (0-10); Lymphocytes 12 % (20-55); Metamyelocytes 1 %; Myelocytes 2 %; Platelet Estimate Decreased; Promyelocytes 1 %; Segmented Neutrophils 63 % (50-85); Total Cells Counted 100
[2018-07-24] MEDS: ONDANSETRON 4 MG/2 ML VIAL IV PRN (04:59)
[2018-07-24 05:01] LABS: Hypochromasia Slight
[2018-07-24] MEDS: LEVOTHYROXINE 75 MCG TABLET PO SCH (06:28)
[2018-07-24] MEDS ORDERED: SODIUM CHLORIDE 0.9% 1,000 ML IV ONE (07:45)
[2018-07-24] MEDS: methylPREDNISolone SOD SUC 125 MG/2 ML VIAL IV SCH ×2 (08:44→21:46)
[2018-07-24] MEDS: CLOPIDOGREL 75 MG TABLET PO SCH (08:45)
[2018-07-24] MEDS: METOPROLOL TARTRATE 25 MG TABLET PO SCH ×2 (08:45→21:45)
[2018-07-24] MEDS: GABAPENTIN 100 MG CAPSULE PO SCH ×3 (08:45→21:30)
[2018-07-24] MEDS: FAMOTIDINE 20 MG/2 ML VIAL IV SCH (08:45)
[2018-07-24] MEDS ORDERED: oxyCODONE IR 5 MG TABLET PO PRN (12:07)
[2018-07-24] MEDS ORDERED: LIDOCAINE 2% TOP JELLY 20 ML VIAL INTRAURETH ONE (13:18)
[2018-07-24] MEDS: SODIUM CHLORIDE 0.45% 1,000 ML IV SCH (22:10)
[2018-07-25] MEDS: INSULIN LISPRO 100 UNIT/ML SUBCUT SCH ×4 (01:06→17:52)
[2018-07-25] MEDS: CEFEPIME 1,000 MG in SODIUM CHLORIDE 0.9% 100 ML IV SCH ×2 (02:45→13:05)
[2018-07-25 04:57] LABS: Basophils % 0.3 % (0.0-0.8); Hematocrit 27.5 VOL% (42.0-52.0); Immature Granulocytes % 11.6 %; Immature Granulocytes Absolute 0.77 #; Lymphocytes # 0.5 10*3/uL (1.4-4.0); Lymphocytes % 6.8 % (21.2-54.2); Mean Corpuscular HGB Conc 32.7 GM/DL (32-36); Mean Corpuscular Volume 88.7 FL (87-102); Mean Platelet Volume 12.6 FL (9.6-12.0); Monocytes % 10.8 % (1.7-12.7); Neutrophils % 70.5 % (38.7-73.9); Red Cell Distribution Width 16.9 % (9.3-17.3); White Blood Count 6.7 T/CUMM (4-12)
[2018-07-25 05:15] LABS: Platelet Count 40 T/CUMM (130-400)
[2018-07-25 05:25] LABS: Calcium 8.4 MG/DL (8.5-10.1); Osmolality,Calculated 308.5 MOS/KG (273-304)
[2018-07-25 05:35] LABS: Free T4 (Free Thyroxine) 0.87 NG/DL (0.76-1.46); Thyroid Stimulating Hormone 0.709 uIU/ml (0.358-3.74)
[2018-07-25 05:56] LABS: Acanthocytes 1+; Anisocytosis 1+; Band Neutrophils 27 % (0-10); Elliptocytes Few; Eosinophils 1 % (0-10); Lymphocytes 7 % (20-55); Macrocytosis 1+; Metamyelocytes 5 %; Myelocytes 2 %; Nucleated Red Blood Cells 2 (0-5); Ovalocytes 2+; Platelet Estimate Decreased; Promyelocytes 1 %; Segmented Neutrophils 48 % (50-85); Total Cells Counted 100
[2018-07-25] MEDS: SODIUM CHLORIDE 0.45% 1,000 ML IV SCH ×2 (06:41→13:14)
[2018-07-25] MEDS: LEVOTHYROXINE 75 MCG TABLET PO SCH (06:41)
[2018-07-25] MEDS: METOPROLOL TARTRATE 25 MG TABLET PO SCH ×2 (09:45→21:30)
[2018-07-25] MEDS: ALLOPURINOL 100 MG TABLET PO SCH (09:45)
[2018-07-25] MEDS: methylPREDNISolone SOD SUC 125 MG/2 ML VIAL IV SCH ×2 (09:46→21:26)
[2018-07-25] MEDS: FAMOTIDINE 20 MG/2 ML VIAL IV SCH (09:46)
[2018-07-25] MEDS: GABAPENTIN 100 MG CAPSULE PO SCH ×2 (09:47→21:30)
[2018-07-25] MEDS: CLOPIDOGREL 75 MG TABLET PO SCH (09:51)
[2018-07-26] MEDS: INSULIN LISPRO 100 UNIT/ML SUBCUT SCH ×4 (00:44→19:03)
[2018-07-26] MEDS: SODIUM CHLORIDE 0.45% 1,000 ML IV SCH ×5 (00:45→21:07)
[2018-07-26] MEDS: CEFEPIME 1,000 MG in SODIUM CHLORIDE 0.9% 100 ML IV SCH (02:23)
[2018-07-26 04:38] LABS: Basophils % 0.2 % (0.0-0.8); Hematocrit 28.4 VOL% (42.0-52.0); Hemoglobin 9.2 GM/DL (14.0-18.0); Immature Granulocytes % 13.2 %; Immature Granulocytes Absolute 0.86 #; Lymphocytes # 0.5 10*3/uL (1.4-4.0); Lymphocytes % 7.8 % (21.2-54.2); Mean Corpuscular HGB Conc 32.4 GM/DL (32-36); Mean Corpuscular Volume 87.7 FL (87-102); Monocytes % 11.2 % (1.7-12.7); Neutrophils % 67.6 % (38.7-73.9); Platelet Count 42 T/CUMM (130-400); Red Blood Count 3.24 MC/CUMM (3.8-5.5); Red Cell Distribution Width 16.5 % (9.3-17.3); White Blood Count 6.5 T/CUMM (4-12)
[2018-07-26 05:00] LABS: Calcium 8.1 MG/DL (8.5-10.1)
[2018-07-26 05:03] LABS: Band Neutrophils 7 % (0-10); Hypochromasia Slight; Lymphocytes 7 % (20-55); Myelocytes 3 %; Platelet Estimate Decreased; Segmented Neutrophils 67 % (50-85); Total Cells Counted 100
[2018-07-26] MEDS: LEVOTHYROXINE 75 MCG TABLET PO SCH (05:59)
[2018-07-26] MEDS ORDERED: RASBURICASE 7.5 MG in SODIUM CHLORIDE 0.9% 50 ML IV ONE (09:00)
[2018-07-26] MEDS: ALLOPURINOL 100 MG TABLET PO SCH (09:15)
[2018-07-26] MEDS: GABAPENTIN 100 MG CAPSULE PO SCH ×2 (09:15→21:10)
[2018-07-26] MEDS: methylPREDNISolone SOD SUC 125 MG/2 ML VIAL IV SCH ×2 (09:15→21:07)
[2018-07-26] MEDS: METOPROLOL TARTRATE 25 MG TABLET PO SCH ×2 (09:15→21:10)
[2018-07-26] MEDS: CLOPIDOGREL 75 MG TABLET PO SCH (09:15)
[2018-07-26] MEDS: FAMOTIDINE 20 MG/2 ML VIAL IV SCH (09:16)
[2018-07-27] MEDS: INSULIN LISPRO 100 UNIT/ML SUBCUT SCH ×4 (00:09→18:29)
[2018-07-27] MEDS: SODIUM CHLORIDE 0.45% 1,000 ML IV SCH ×2 (04:36→16:15)
[2018-07-27 05:02] LABS: Basophils % 0.2 % (0.0-0.8); Hematocrit 26.9 VOL% (42.0-52.0); Hemoglobin 8.4 GM/DL (14.0-18.0); Immature Granulocytes % 13.1 %; Immature Granulocytes Absolute 1.14 #; Lymphocytes # 0.4 10*3/uL (1.4-4.0); Lymphocytes % 4.9 % (21.2-54.2); Mean Corpuscular HGB Conc 31.2 GM/DL (32-36); Mean Corpuscular Volume 91.2 FL (87-102); Monocytes % 7.8 % (1.7-12.7); Red Blood Count 2.95 MC/CUMM (3.8-5.5); Red Cell Distribution Width 16.5 % (9.3-17.3); White Blood Count 8.7 T/CUMM (4-12)
[2018-07-27 05:06] LABS: Platelet Count 36 T/CUMM (130-400)
[2018-07-27 05:30] LABS: Calcium 8.1 MG/DL (8.5-10.1); Osmolality,Calculated 304.2 MOS/KG (273-304)
[2018-07-27 06:21] LABS: Anisocytosis 1+; Band Neutrophils 9 % (0-10); Hypochromasia 1+; Lymphocytes 8 % (20-55); Metamyelocytes 1 %; Microcytosis 1+; Myelocytes 1 %; Platelet Estimate Decreased; Segmented Neutrophils 76 % (50-85); Smudge Cells Few; Total Cells Counted 100
[2018-07-27] MEDS: LEVOTHYROXINE 75 MCG TABLET PO SCH (06:40)
[2018-07-27] MEDS: METOPROLOL TARTRATE 25 MG TABLET PO SCH ×2 (09:18→20:48)
[2018-07-27] MEDS: ALLOPURINOL 100 MG TABLET PO SCH (09:18)
[2018-07-27] MEDS: methylPREDNISolone SOD SUC 125 MG/2 ML VIAL IV SCH ×2 (09:18→20:49)
[2018-07-27] MEDS: FAMOTIDINE 20 MG/2 ML VIAL IV SCH (09:18)
[2018-07-27] MEDS: CLOPIDOGREL 75 MG TABLET PO SCH (09:18)
[2018-07-27] MEDS: GABAPENTIN 100 MG CAPSULE PO SCH ×2 (09:19→20:48)
[2018-07-27] MEDS ORDERED: SODIUM BICARB INJ 100 MEQ in DEXTROSE 5% 1,000 ML IV SCH (13:00)
[2018-07-27] MEDS: SODIUM BICARB INJ 150 MEQ in STERILE WATER INJ 850 ML IV SCH (16:00)
[2018-07-28] MEDS: INSULIN LISPRO 100 UNIT/ML SUBCUT SCH ×4 (00:10→18:37)
[2018-07-28] MEDS: SODIUM BICARB INJ 150 MEQ in STERILE WATER INJ 850 ML IV SCH ×3 (02:05→21:10)
[2018-07-28 05:22] LABS: Basophils % 0.2 % (0.0-0.8); Hematocrit 23.5 VOL% (42.0-52.0); Hemoglobin 7.8 GM/DL (14.0-18.0); Immature Granulocytes % 13.6 %; Immature Granulocytes Absolute 0.71 #; Lymphocytes # 0.5 10*3/uL (1.4-4.0); Lymphocytes % 10.2 % (21.2-54.2); Mean Corpuscular HGB Conc 33.2 GM/DL (32-36); Mean Corpuscular Volume 85.1 FL (87-102); Monocytes % 7.3 % (1.7-12.7); Neutrophils % 68.7 % (38.7-73.9); Red Blood Count 2.76 MC/CUMM (3.8-5.5); Red Cell Distribution Width 15.9 % (9.3-17.3); White Blood Count 5.2 T/CUMM (4-12)
[2018-07-28 05:32] LABS: Platelet Count 24 T/CUMM (130-400)
[2018-07-28 05:43] LABS: Calcium 7.2 MG/DL (8.5-10.1); Osmolality,Calculated 307.5 MOS/KG (273-304)
[2018-07-28 06:21] LABS: Band Neutrophils 6 % (0-10); Lymphocytes 5 % (20-55); Metamyelocytes 2 %; Myelocytes 9 %; Nucleated Red Blood Cells 2 (0-5); Segmented Neutrophils 71 % (50-85); Total Cells Counted 100
[2018-07-28 06:22] LABS: Anisocytosis 1+
[2018-07-28 06:23] LABS: Acanthocytes Few; Ovalocytes 1+; Platelet Estimate Decreased; Polychromasia Slight
[2018-07-28] MEDS: LEVOTHYROXINE 75 MCG TABLET PO SCH (07:07)
[2018-07-28] MEDS: methylPREDNISolone SOD SUC 125 MG/2 ML VIAL IV SCH (10:39)
[2018-07-28] MEDS: CLOPIDOGREL 75 MG TABLET PO SCH (10:39)
[2018-07-28] MEDS: FAMOTIDINE 20 MG/2 ML VIAL IV SCH (10:39)
[2018-07-28] MEDS: METOPROLOL TARTRATE 25 MG TABLET PO SCH ×2 (10:39→21:08)
[2018-07-28] MEDS: ALLOPURINOL 100 MG TABLET PO SCH (10:39)
[2018-07-28] MEDS: GABAPENTIN 100 MG CAPSULE PO SCH ×2 (10:40→21:08)
[2018-07-28] MEDS ORDERED: ZALEPLON 5 MG CAPSULE PO ONE (21:38)
[2018-07-28] MEDS ORDERED: methylPREDNISolone SOD SUC 40 MG/1 ML VIAL IV SCH (22:00)
[2018-07-29] MEDS ORDERED: metroNIDAZOLE 500 MG TABLET PO SCH
[2018-07-29] MEDS: metroNIDAZOLE 500 MG TABLET PO SCH ×4 (00:18→17:44)
[2018-07-29] MEDS: INSULIN LISPRO 100 UNIT/ML SUBCUT SCH ×4 (00:19→17:45)
[2018-07-29] MEDS: VANCOMYCIN 50 MG/ML 60 ML/BOTTLE PO SCH ×4 (00:22→17:45)
[2018-07-29 05:17] LABS: Basophils % 0.2 % (0.0-0.8); Hematocrit 24.1 VOL% (42.0-52.0); Hemoglobin 7.9 GM/DL (14.0-18.0); Immature Granulocytes % 11.8 %; Immature Granulocytes Absolute 0.49 #; Lymphocytes # 0.6 10*3/uL (1.4-4.0); Lymphocytes % 15.3 % (21.2-54.2); Mean Corpuscular HGB Conc 32.8 GM/DL (32-36); Mean Corpuscular Volume 86.4 FL (87-102); Monocytes % 8.4 % (1.7-12.7); Neutrophils % 64.3 % (38.7-73.9); Red Blood Count 2.79 MC/CUMM (3.8-5.5); Red Cell Distribution Width 15.5 % (9.3-17.3); White Blood Count 4.2 T/CUMM (4-12)
[2018-07-29 05:28] LABS: Platelet Count 24 T/CUMM (130-400)
[2018-07-29 05:31] LABS: Calcium 7.9 MG/DL (8.5-10.1); Osmolality,Calculated 301.3 MOS/KG (273-304)
[2018-07-29] MEDS: LEVOTHYROXINE 75 MCG TABLET PO SCH (05:49)
[2018-07-29 06:14] LABS: Anisocytosis Slight; Band Neutrophils 9 % (0-10); Lymphocytes 20 % (20-55); Metamyelocytes 2 %; Microcytosis 1+; Myelocytes 4 %; Segmented Neutrophils 52 % (50-85); Total Cells Counted 100
[2018-07-29 06:15] LABS: Platelet Estimate Decreased
[2018-07-29] MEDS ORDERED: MAGNESIUM SULF RIDER 2 GM in PREMIX 1 EACH IV ONE (08:05)
[2018-07-29] MEDS ORDERED: SODIUM CHLORIDE 0.9% 1,000 ML IV PRN (08:09)
[2018-07-29] MEDS: ALLOPURINOL 100 MG TABLET PO SCH (09:34)
[2018-07-29] MEDS: METOPROLOL TARTRATE 25 MG TABLET PO SCH ×2 (09:34→21:47)
[2018-07-29] MEDS: predniSONE 20 MG TABLET PO SCH (09:35)
[2018-07-29] MEDS: FAMOTIDINE 20 MG/2 ML VIAL IV SCH (09:35)
[2018-07-29] MEDS: GABAPENTIN 100 MG CAPSULE PO SCH ×2 (09:35→21:47)
[2018-07-29] MEDS ORDERED: POTASSIUM CHLORIDE 20 MEQ TABLET PO ONE (15:55)
[2018-07-29] MEDS: SODIUM BICARB INJ 100 MEQ in STERILE WATER INJ 1,000 ML IV SCH ×2 (17:15→22:26)
[2018-07-29] MEDS: SODIUM BICARB INJ 150 MEQ in STERILE WATER INJ 850 ML IV SCH (17:15)
[2018-07-29] MEDS ORDERED: ZALEPLON 5 MG CAPSULE PO PRN (22:06)
[2018-07-30] MEDS: metroNIDAZOLE 500 MG TABLET PO SCH ×3 (00:49→13:49)
[2018-07-30] MEDS: VANCOMYCIN 50 MG/ML 60 ML/BOTTLE PO SCH ×3 (00:49→13:49)
[2018-07-30] MEDS: INSULIN LISPRO 100 UNIT/ML SUBCUT SCH ×3 (01:05→13:18)
[2018-07-30 04:59] LABS: Basophils % 0.2 % (0.0-0.8); Hematocrit 31.4 VOL% (42.0-52.0); Hemoglobin 10.4 GM/DL (14.0-18.0); Immature Granulocytes % 12.7 %; Immature Granulocytes Absolute 0.52 #; Lymphocytes % 23.3 % (21.2-54.2); Mean Corpuscular HGB Conc 33.1 GM/DL (32-36); Mean Corpuscular Volume 88.2 FL (87-102); Monocytes % 7.6 % (1.7-12.7); Neutrophils % 56.2 % (38.7-73.9); Red Blood Count 3.56 MC/CUMM (3.8-5.5); Red Cell Distribution Width 15.2 % (9.3-17.3); White Blood Count 4.1 T/CUMM (4-12)
[2018-07-30 05:03] LABS: Platelet Count 17 T/CUMM (130-400)
[2018-07-30 05:31] LABS: Calcium 7.8 MG/DL (8.5-10.1); Osmolality,Calculated 297.3 MOS/KG (273-304)
[2018-07-30] MEDS ORDERED: SODIUM CHLORIDE 0.9% 1,000 ML IV PRN ×2 (05:34→11:19)
[2018-07-30 05:47] LABS: Band Neutrophils 5 % (0-10); Lymphocytes 26 % (20-55); Platelet Estimate Decreased; Segmented Neutrophils 55 % (50-85); Total Cells Counted 100
[2018-07-30 05:48] LABS: Hypochromasia 1+; Microcytosis 1+; Ovalocytes Slight
[2018-07-30] MEDS: LEVOTHYROXINE 75 MCG TABLET PO SCH (06:15)
[2018-07-30] MEDS: GABAPENTIN 100 MG CAPSULE PO SCH (09:31)
[2018-07-30] MEDS: FAMOTIDINE 20 MG/2 ML VIAL IV SCH (09:31)
[2018-07-30] MEDS: METOPROLOL TARTRATE 25 MG TABLET PO SCH (09:31)
[2018-07-30] MEDS: ALLOPURINOL 100 MG TABLET PO SCH (09:31)
[2018-07-30] MEDS: predniSONE 20 MG TABLET PO SCH (09:31)
[2018-07-30] MEDS: SODIUM BICARB INJ 100 MEQ in STERILE WATER INJ 1,000 ML IV SCH (09:40)
[2018-07-30 14:15] VITALS: BP 124/80
== END 2018-07-30 14:37 | disposition hospice, home (50) | DRG 683 ==
LOC: N.EDINP 18:31 → N.ED 18:31 → SUATTDRO 07-21 01:12 → N.EDINP 07-21 02:26 → N.3E 07-21 02:30 → SUATTDRO 07-22 14:36 → N.4E 07-22 16:26
PROVIDERS: ADMIT Internal Medicine Cardiovascular Disease; ATTEND Family Medicine

== ENCOUNTER 2018-08-21 08:53 | Inpatient (IN) ==
[2018-08-21] MEDS ORDERED: SODIUM CHLORIDE 0.9% 500 ML IV STA (09:27)
[2018-08-21 10:24] LABS: Basophils % 0.2 % (0.0-0.8); Hematocrit 29.3 VOL% (42.0-52.0); Hemoglobin 9.1 GM/DL (14.0-18.0); Immature Granulocytes % 10.4 %; Immature Granulocytes Absolute 2.03 #; Lymphocytes # 1.4 10*3/uL (1.4-4.0); Lymphocytes % 6.9 % (21.2-54.2); Mean Corpuscular HGB Conc 31.1 GM/DL (32-36); Mean Corpuscular Volume 92.7 FL (87-102); Mean Platelet Volume 14.3 FL (9.6-12.0); Monocytes % 13.9 % (1.7-12.7); Neutrophils % 68.6 % (38.7-73.9); Platelet Count 56 T/CUMM (130-400); Red Blood Count 3.16 MC/CUMM (3.8-5.5); Red Cell Distribution Width 15.7 % (9.3-17.3); White Blood Count 19.6 T/CUMM (4-12)
[2018-08-21 10:45] LABS: Alanine Aminotransferase 10 U/L (16-61); Albumin 2.4 G/DL (3.4-5.0); Alkaline Phosphatase 67 U/L (45-117); Aspartate Amino Transferase 3 U/L (0-37); Band Neutrophils 7 % (0-10); Blood Urea Nitrogen 60 MG/DL (7-18); Calcium 9.8 MG/DL (8.5-10.1); Glucose 313 MG/DL (74-106); Lymphocytes 10 % (20-55); Myelocytes 2 %; Osmolality,Calculated 301.8 MOS/KG (273-304); Segmented Neutrophils 66 % (50-85); Total Cells Counted 100; Total Protein 8.2 G/DL (6.4-8.3); Uric Acid 8.4 MG/DL (3.5-7.2)
[2018-08-21 10:46] LABS: Platelet Estimate Decreased
[2018-08-21 10:47] LABS: Hypochromasia 1+; Microcytosis 1+; Ovalocytes Slight
[2018-08-21] MEDS ORDERED: COLCHICINE 0.6 MG CAPSULE PO STA (11:05)
[2018-08-21] MEDS ORDERED: SODIUM CHLORIDE 0.9% 1,000 ML IV STA (11:05)
[2018-08-21] MEDS ORDERED: BISACODYL 5 MG TABLET PO PRN (11:16)
[2018-08-21] MEDS ORDERED: GLUCAGON 1 MG VIAL IM PRN (11:16)
[2018-08-21] MEDS ORDERED: ACETAMINOPHEN 325 MG TABLET PO PRN (11:16)
[2018-08-21] MEDS ORDERED: DEXTROSE 50% 25 GM/50 ML VIAL IV PRN (11:16)
[2018-08-21] MEDS ORDERED: ONDANSETRON 4 MG/2 ML VIAL IV PRN (11:16)
[2018-08-21] MEDS: cefTRIAXone 1,000 MG in SYRINGE 1 EACH IV SCH (12:00)
[2018-08-21] MEDS: INSULIN LISPRO 100 UNIT/ML SUBCUT SCH ×3 (13:37→21:10)
[2018-08-21] MEDS: VANCOMYCIN INJ 1,000 MG in SODIUM CHLORIDE 0.9% 250 ML IV SCH (13:37)
[2018-08-21] MEDS: SODIUM CHLORIDE 0.9% 1,000 ML IV SCH ×2 (13:37→22:46)
[2018-08-21] MEDS: GABAPENTIN 100 MG CAPSULE PO PRN (16:27)
[2018-08-21] MEDS ORDERED: LIDOCAINE 1% 20 ML VIAL MISC INJ ONE (16:32)
[2018-08-21 17:12] LABS: Apearance,Urine Slightly Hazy (Clear); Bacteria,Urine Occasional /HPF (Few); Bilirubin,Urine Negative (Negative); Blood, Urine Small mg/dL (Negative); Glucose,Urine (UA) 50 mg/dL (Negative); Hyaline Casts,Urine 1 /LPF (0-3); Ketones,Urine Negative (Negative); Mucus,Urine Occasional /LPF (Occasional); Nitrite,Urine Negative (Negative); Protein,Urine Negative; RBC,Urine 2 /HPF (0-4); Squamous Epithelial Cell,Urine Occasional /HPF (0-10); Uric Acid Crystals,Urine Few /HPF (<1); Urine Color Yellow (Yellow); Urine Specific Gravity 1.015 (1.001-1.035); Urine Urobilinogen < 2.0 EU/DL (0.2-1.0); WBC,Urine 2 /HPF (0-6)
[2018-08-21 18:15] LABS: Cholesterol Crystals None Seen /LPF
[2018-08-21 18:33] LABS: Lymphocytes,Synovial Fluid 19 %; Neutrophils,Synovial Fluid 75 %
[2018-08-21] MEDS: METOPROLOL TARTRATE 25 MG TABLET PO SCH (21:09)
[2018-08-22 05:25] LABS: Basophils % 0.1 % (0.0-0.8); Hemoglobin 7.3 GM/DL (14.0-18.0); Immature Granulocytes % 11.9 %; Immature Granulocytes Absolute 1.67 #; Lymphocytes # 1.1 10*3/uL (1.4-4.0); Lymphocytes % 7.5 % (21.2-54.2); Mean Corpuscular HGB Conc 30.4 GM/DL (32-36); Mean Corpuscular Volume 94.5 FL (87-102); Mean Platelet Volume 12.8 FL (9.6-12.0); Monocytes % 14.4 % (1.7-12.7); Neutrophils % 66.1 % (38.7-73.9); Red Blood Count 2.54 MC/CUMM (3.8-5.5); Red Cell Distribution Width 15.9 % (9.3-17.3)
[2018-08-22 05:35] LABS: Platelet Count 61 T/CUMM (130-400)
[2018-08-22] MEDS: VANCOMYCIN INJ 1,000 MG in SODIUM CHLORIDE 0.9% 250 ML IV SCH (05:50)
[2018-08-22] MEDS: LEVOTHYROXINE 75 MCG TABLET PO SCH (05:50)
[2018-08-22 05:53] LABS: Calcium 8.4 MG/DL (8.5-10.1)
[2018-08-22 06:17] LABS: Band Neutrophils 9 % (0-10); Lymphocytes 8 % (20-55); Metamyelocytes 2 %; Myelocytes 3 %; Segmented Neutrophils 66 % (50-85); Total Cells Counted 100
[2018-08-22 06:18] LABS: Hypochromasia 1+
[2018-08-22 06:19] LABS: Microcytosis 1+; Ovalocytes Slight; Platelet Estimate Decreased
[2018-08-22] MEDS: SODIUM CHLORIDE 0.9% 1,000 ML IV SCH ×2 (09:01→16:42)
[2018-08-22] MEDS: METOPROLOL TARTRATE 25 MG TABLET PO SCH ×2 (09:02→21:32)
[2018-08-22] MEDS: INSULIN LISPRO 100 UNIT/ML SUBCUT SCH ×4 (09:03→21:32)
[2018-08-22] MEDS: predniSONE 20 MG TABLET PO SCH (09:03)
[2018-08-22] MEDS: cefTRIAXone 1,000 MG in SYRINGE 1 EACH IV SCH (09:03)
[2018-08-22] MEDS: GABAPENTIN 100 MG CAPSULE PO PRN ×2 (09:07→20:11)
[2018-08-22] MEDS ORDERED: cefTRIAXone 1,000 MG in SYRINGE 1 EACH IV SCH (11:30)
[2018-08-22] MEDS ORDERED: cefTRIAXone 1,000 MG in SYRINGE 1 EACH IV ONE (12:30)
[2018-08-23] MEDS: VANCOMYCIN INJ 1,000 MG in SODIUM CHLORIDE 0.9% 250 ML IV SCH (00:49)
[2018-08-23] MEDS: MORPHINE 4 MG/1 ML VIAL IV PRN (04:04)
[2018-08-23 05:46] LABS: Basophils % 0.2 % (0.0-0.8); Hemoglobin 6.6 GM/DL (14.0-18.0); Immature Granulocytes % 10.9 %; Immature Granulocytes Absolute 1.23 #; Lymphocytes # 1.1 10*3/uL (1.4-4.0); Lymphocytes % 9.5 % (21.2-54.2); Mean Corpuscular Volume 95.2 FL (87-102); Mean Platelet Volume 12.8 FL (9.6-12.0); NRBC # 0.02 10*3/uL; Neutrophils % 71.4 % (38.7-73.9); Platelet Count 45 T/CUMM (130-400); Red Blood Count 2.31 MC/CUMM (3.8-5.5); Red Cell Distribution Width 16.2 % (9.3-17.3); White Blood Count 11.3 T/CUMM (4-12)
[2018-08-23 06:11] LABS: Calcium 7.7 MG/DL (8.5-10.1); Osmolality,Calculated 291.1 MOS/KG (273-304)
[2018-08-23 06:18] LABS: Band Neutrophils 36 % (0-10); Lymphocytes 12 % (20-55); Metamyelocytes 4 %; Platelet Estimate Decreased; Segmented Neutrophils 40 % (50-85); Total Cells Counted 100
[2018-08-23 06:19] LABS: Anisocytosis 1+
[2018-08-23] MEDS: LEVOTHYROXINE 75 MCG TABLET PO SCH (06:20)
[2018-08-23] MEDS ORDERED: SODIUM CHLORIDE 0.9% 1,000 ML IV PRN (08:01)
[2018-08-23] MEDS: predniSONE 20 MG TABLET PO SCH (08:46)
[2018-08-23] MEDS: METOPROLOL TARTRATE 25 MG TABLET PO SCH ×3 (08:46→22:07)
[2018-08-23] MEDS: GABAPENTIN 100 MG CAPSULE PO SCH ×3 (08:46→22:07)
[2018-08-23] MEDS: ALLOPURINOL 100 MG TABLET PO SCH (08:46)
[2018-08-23] MEDS: INSULIN LISPRO 100 UNIT/ML SUBCUT SCH ×4 (08:47→22:08)
[2018-08-23] MEDS: SODIUM CHLORIDE 0.9% 1,000 ML IV SCH (08:47)
[2018-08-23] MEDS ORDERED: cefTRIAXone 2,000 MG in SYRINGE 1 EACH IV SCH (09:00)
[2018-08-23] MEDS ORDERED: diphenhydrAMINE CAP 25 MG CAPSULE ONE (11:28)
[2018-08-23] MEDS ORDERED: ACETAMINOPHEN 500 MG TABLET ONE (11:36)
[2018-08-23] MEDS ORDERED: diphenhydrAMINE CAP 25 MG CAPSULE PO ONE ×2 (12:00→15:35)
[2018-08-23] MEDS ORDERED: ACETAMINOPHEN 500 MG TABLET PO ONE (12:00)
[2018-08-24] MEDS: MORPHINE 4 MG/1 ML VIAL IV PRN ×5 (04:29→22:44)
[2018-08-24 05:24] LABS: Basophils % 0.2 % (0.0-0.8); Eosinophils % 0.1 % (0.00-10.9); Hematocrit 28.9 VOL% (42.0-52.0); Hemoglobin 9.1 GM/DL (14.0-18.0); Immature Granulocytes % 11.2 %; Immature Granulocytes Absolute 1.09 #; Lymphocytes # 1.1 10*3/uL (1.4-4.0); Lymphocytes % 10.9 % (21.2-54.2); Mean Corpuscular HGB Conc 31.5 GM/DL (32-36); Mean Corpuscular Volume 88.9 FL (87-102); Monocytes % 10.3 % (1.7-12.7); Neutrophils % 67.3 % (38.7-73.9); Platelet Count 43 T/CUMM (130-400); Red Blood Count 3.25 MC/CUMM (3.8-5.5); Red Cell Distribution Width 17.2 % (9.3-17.3); White Blood Count 9.7 T/CUMM (4-12)
[2018-08-24 05:48] LABS: Band Neutrophils 15 % (0-10); Lymphocytes 8 % (20-55); Metamyelocytes 1 %; Myelocytes 4 %; Segmented Neutrophils 60 % (50-85); Total Cells Counted 100
[2018-08-24 05:50] LABS: Anisocytosis 1+; Ovalocytes Few; Platelet Estimate Decreased
[2018-08-24 06:09] LABS: Alanine Aminotransferase < 9 U/L (16-61); Albumin 1.7 G/DL (3.4-5.0); Alkaline Phosphatase 58 U/L (45-117); Aspartate Amino Transferase 4 U/L (0-37); Blood Urea Nitrogen 29 MG/DL (7-18); Calcium 8.3 MG/DL (8.5-10.1); Ferritin 6721.8 ng/ml (26-388); Glucose 114 MG/DL (74-106); Osmolality,Calculated 283.5 MOS/KG (273-304); Total Protein 6.3 G/DL (6.4-8.3); Uric Acid 5.6 MG/DL (3.5-7.2)
[2018-08-24] MEDS: LEVOTHYROXINE 75 MCG TABLET PO SCH (06:40)
[2018-08-24] MEDS: INSULIN LISPRO 100 UNIT/ML SUBCUT SCH ×4 (08:14→21:49)
[2018-08-24] MEDS: ALLOPURINOL 100 MG TABLET PO SCH (09:21)
[2018-08-24] MEDS: GABAPENTIN 100 MG CAPSULE PO SCH ×3 (09:21→21:34)
[2018-08-24] MEDS: predniSONE 20 MG TABLET PO SCH (09:21)
[2018-08-24] MEDS: METOPROLOL TARTRATE 25 MG TABLET PO SCH ×3 (09:28→23:22)
[2018-08-24] MEDS: VANCOMYCIN INJ 1,000 MG in SODIUM CHLORIDE 0.9% 250 ML IV SCH ×2 (12:31→22:50)
[2018-08-25] MEDS: MORPHINE 4 MG/1 ML VIAL IV PRN ×2 (01:37→18:17)
[2018-08-25 05:16] LABS: Basophils % 0.3 % (0.0-0.8); Eosinophils % 0.1 % (0.00-10.9); Hematocrit 31.9 VOL% (42.0-52.0); Hemoglobin 9.8 GM/DL (14.0-18.0); Immature Granulocytes % 10.4 %; Immature Granulocytes Absolute 1.23 #; Lymphocytes # 1.3 10*3/uL (1.4-4.0); Lymphocytes % 10.8 % (21.2-54.2); Mean Corpuscular HGB Conc 30.7 GM/DL (32-36); Mean Corpuscular Volume 89.1 FL (87-102); Mean Platelet Volume 13.4 FL (9.6-12.0); Monocytes % 8.5 % (1.7-12.7); Neutrophils % 69.9 % (38.7-73.9); Platelet Count 62 T/CUMM (130-400); Red Blood Count 3.58 MC/CUMM (3.8-5.5); Red Cell Distribution Width 17.2 % (9.3-17.3); White Blood Count 11.8 T/CUMM (4-12)
[2018-08-25 05:33] LABS: Osmolality,Calculated 280.5 MOS/KG (273-304)
[2018-08-25 05:49] LABS: Anisocytosis 1+; Band Neutrophils 8 % (0-10); Hypochromasia 1+; Lymphocytes 12 % (20-55); Microcytosis Slight; Platelet Estimate Adequate; Segmented Neutrophils 70 % (50-85); Total Cells Counted 100
[2018-08-25] MEDS: LEVOTHYROXINE 75 MCG TABLET PO SCH (07:22)
[2018-08-25] MEDS: ALLOPURINOL 100 MG TABLET PO SCH (08:43)
[2018-08-25] MEDS: METOPROLOL TARTRATE 50 MG TABLET PO SCH ×2 (08:43→20:31)
[2018-08-25] MEDS: predniSONE 20 MG TABLET PO SCH (08:43)
[2018-08-25] MEDS: GABAPENTIN 100 MG CAPSULE PO SCH ×3 (08:43→20:31)
[2018-08-25] MEDS: INSULIN LISPRO 100 UNIT/ML SUBCUT SCH ×4 (08:44→21:40)
[2018-08-25] MEDS: CIPROFLOXACIN 500 MG TABLET PO SCH ×2 (11:47→20:31)
[2018-08-26 05:06] LABS: Basophils % 0.1 % (0.0-0.8); Hematocrit 28.6 VOL% (42.0-52.0); Hemoglobin 8.9 GM/DL (14.0-18.0); Immature Granulocytes % 9.1 %; Lymphocytes # 1.1 10*3/uL (1.4-4.0); Lymphocytes % 13.8 % (21.2-54.2); Mean Corpuscular HGB Conc 31.1 GM/DL (32-36); Mean Corpuscular Volume 89.9 FL (87-102); Monocytes % 11.8 % (1.7-12.7); Neutrophils % 65.2 % (38.7-73.9); Red Blood Count 3.18 MC/CUMM (3.8-5.5); Red Cell Distribution Width 16.8 % (9.3-17.3); White Blood Count 7.7 T/CUMM (4-12)
[2018-08-26 05:10] LABS: Platelet Count 27 T/CUMM (130-400)
[2018-08-26 05:27] LABS: Calcium 8.4 MG/DL (8.5-10.1); Osmolality,Calculated 277.8 MOS/KG (273-304)
[2018-08-26 05:46] LABS: Band Neutrophils 7 % (0-10); Eosinophils 1 % (0-10); Hypochromasia 1+; Lymphocytes 12 % (20-55); Microcytosis Slight; Myelocytes 1 %; Platelet Estimate Decreased; Segmented Neutrophils 73 % (50-85); Total Cells Counted 100
[2018-08-26] MEDS: LEVOTHYROXINE 75 MCG TABLET PO SCH (05:54)
[2018-08-26] MEDS: MORPHINE 4 MG/1 ML VIAL IV PRN (08:22)
[2018-08-26] MEDS: CIPROFLOXACIN 500 MG TABLET PO SCH (08:27)
[2018-08-26] MEDS: ALLOPURINOL 100 MG TABLET PO SCH (08:27)
[2018-08-26] MEDS: GABAPENTIN 100 MG CAPSULE PO SCH (08:27)
[2018-08-26] MEDS: predniSONE 20 MG TABLET PO SCH (08:27)
[2018-08-26] MEDS: METOPROLOL TARTRATE 50 MG TABLET PO SCH (08:30)
[2018-08-26] MEDS: INSULIN LISPRO 100 UNIT/ML SUBCUT SCH ×2 (10:21→12:45)
[2018-08-26] MEDS ORDERED: METOPROLOL TARTRATE 25 MG TABLET PO SCH (12:00)
[2018-08-26] MEDS ORDERED: DIGOXIN 0.25 MG TABLET PO ONE (12:00)
[2018-08-26 12:12] VITALS: BP 109/69
[2018-08-26] MEDS ORDERED: DIGOXIN 0.125 MG TABLET PO ONE (17:30)
[2018-08-27] MEDS ORDERED: DIGOXIN 0.125 MG TABLET PO SCH (13:00)
== END 2018-08-26 14:50 | disposition home or self-care (01) | DRG 564 ==
LOC: EDUNIT# → EDBD → N.EDINP 08:53 → N.ED 08:53 → N.2E 11:00 → SUATTDRO 08-22 12:56
PROVIDERS: ADMIT Internal Medicine; ATTEND Internal Medicine

== ENCOUNTER 2018-09-12 09:11 | Inpatient (IN) ==
[2018-09-12] MEDS ORDERED: HYDROmorphone 2 MG/1 ML VIAL IV STA (10:09)
[2018-09-12] MEDS ORDERED: ONDANSETRON 4 MG/2 ML VIAL IV STA (10:09)
[2018-09-12 11:35] LABS: Basophils % 0.1 % (0.0-0.8); Hematocrit 21.5 VOL% (42.0-52.0); Hemoglobin 6.8 GM/DL (14.0-18.0); Immature Granulocytes % 11.6 %; Lymphocytes # 0.9 10*3/uL (1.4-4.0); Lymphocytes % 8.2 % (21.2-54.2); Mean Corpuscular HGB Conc 31.6 GM/DL (32-36); Mean Corpuscular Volume 87.8 FL (87-102); Mean Platelet Volume 11.8 FL (9.6-12.0); Monocytes % 30.4 % (1.7-12.7); NRBC # 0.06 10*3/uL; Neutrophils % 49.7 % (38.7-73.9); Platelet Count 150 T/CUMM (130-400); Red Blood Count 2.45 MC/CUMM (3.8-5.5); White Blood Count 11.2 T/CUMM (4-12)
[2018-09-12 11:44] LABS: INR 1.1; PT Patient Result 12.1 SECS; Partial Thromboplastin Time 24.7 SECS (0-40)
[2018-09-12 11:58] LABS: Band Neutrophils 8 % (0-10); Eosinophils 1 % (0-10); Hypochromasia 1+; Lymphocytes 9 % (20-55); Microcytosis Slight; Platelet Estimate Adequate; Segmented Neutrophils 43 % (50-85); Total Cells Counted 100
[2018-09-12 12:37] LABS: Alanine Aminotransferase 13 U/L (16-61); Albumin 2.9 G/DL (3.4-5.0); Alkaline Phosphatase 50 U/L (45-117); Aspartate Amino Transferase 5 U/L (0-37); Bilirubin,Total < 0.39 MG/DL (0.2-1.0); Blood Urea Nitrogen 24 MG/DL (7-18); Calcium 8.5 MG/DL (8.5-10.1); Glucose 225 MG/DL (74-106); Osmolality,Calculated 278.2 MOS/KG (273-304); Total Protein 6.6 G/DL (6.4-8.3)
[2018-09-12 12:45] LABS: Sedimentation Rate-Westergren 48 MM/HR (0-20)
[2018-09-12] MEDS ORDERED: SODIUM CHLORIDE 0.9% 1,000 ML IV PRN ×2 (15:05→16:36)
[2018-09-12] MEDS ORDERED: PROMETHAZINE 25 MG/1 ML VIAL IM PRN (15:05)
[2018-09-12] MEDS ORDERED: ACETAMINOPHEN 325 MG TABLET PO SCH (15:30)
[2018-09-12] MEDS ORDERED: diphenhydrAMINE 50 MG/1 ML VIAL IV SCH (15:30)
[2018-09-12] MEDS: BUTALBITAL/ACETAMIN/CAFFEINE 50-325-40 MG TABLET PO PRN ×2 (16:52→20:51)
[2018-09-12] MEDS: ACETAMINOPHEN 325 MG TABLET PO PRN (22:42)
[2018-09-13] MEDS: BUTALBITAL/ACETAMIN/CAFFEINE 50-325-40 MG TABLET PO PRN ×3 (01:14→11:16)
[2018-09-13] MEDS: ONDANSETRON 4 MG/2 ML VIAL IV PRN ×2 (04:14→09:30)
[2018-09-13 05:48] LABS: Hematocrit 30.3 VOL% (42.0-52.0); Hemoglobin 9.5 GM/DL (14.0-18.0); Mean Corpuscular HGB Conc 31.4 GM/DL (32-36); Mean Corpuscular Volume 86.3 FL (87-102); Red Blood Count 3.51 MC/CUMM (3.8-5.5); Red Cell Distribution Width 15.2 % (9.3-17.3); White Blood Count 13.8 T/CUMM (4-12)
[2018-09-13 05:55] LABS: Platelet Count 92 T/CUMM (130-400)
[2018-09-13 06:13] LABS: Albumin 3.1 G/DL (3.4-5.0); Bilirubin,Total 0.5 MG/DL (0.2-1.0); Calcium 8.7 MG/DL (8.5-10.1); Osmolality,Calculated 274.1 MOS/KG (273-304); Risk Ratio 2.62; Thyroid Stimulating Hormone 2.67 uIU/ml (0.358-3.74); Total Protein 6.7 G/DL (6.4-8.3); VLDL CHOLESTEROL 45.4 MG/DL
[2018-09-13 06:48] LABS: Band Neutrophils 7 % (0-10); Hypochromasia 1+; Lymphocytes 22 % (20-55); Nucleated Red Blood Cells 1 (0-5); Ovalocytes Slight; Platelet Estimate Decreased; Segmented Neutrophils 39 % (50-85); Total Cells Counted 100
[2018-09-13 06:49] LABS: Microcytosis Slight
[2018-09-13] MEDS: oxyCODONE/ACETAMINOPHEN 5-325 MG TABLET PO PRN (09:30)
[2018-09-13] MEDS: MAGNESIUM HYDROXIDE SUSP 30 ML UDCUP PO PRN (11:16)
[2018-09-13] MEDS ORDERED: MORPHINE 4 MG/1 ML VIAL IM ONE (13:38)
[2018-09-13] MEDS ORDERED: KETOROLAC 15 MG/1 ML VIAL IM ONE (13:39)
[2018-09-13] MEDS ORDERED: diphenhydrAMINE 50 MG/1 ML VIAL IV ONE (13:39)
[2018-09-13] MEDS ORDERED: KETOROLAC 15 MG/1 ML VIAL IV ONE (14:19)
[2018-09-13] MEDS ORDERED: MORPHINE 4 MG/1 ML VIAL IV ONE (14:20)
[2018-09-13] MEDS: GABAPENTIN 100 MG CAPSULE PO SCH (15:00)
[2018-09-13] MEDS: methylPREDNISolone SOD SUC 40 MG/1 ML VIAL IV SCH (15:03)
[2018-09-13] MEDS: DEXTROSE 5% NACL 0.9% 1,000 ML IV SCH (17:43)
[2018-09-14] MEDS: methylPREDNISolone SOD SUC 40 MG/1 ML VIAL IV SCH ×2 (01:54→13:59)
[2018-09-14] MEDS: oxyCODONE/ACETAMINOPHEN 5-325 MG TABLET PO PRN ×2 (01:54→09:28)
[2018-09-14 05:30] LABS: Hematocrit 28.5 VOL% (42.0-52.0); Hemoglobin 9.1 GM/DL (14.0-18.0); Mean Corpuscular HGB Conc 31.9 GM/DL (32-36); Mean Corpuscular Volume 86.9 FL (87-102); Mean Platelet Volume 11.8 FL (9.6-12.0); Platelet Count 73 T/CUMM (130-400); Red Blood Count 3.28 MC/CUMM (3.8-5.5); Red Cell Distribution Width 15.3 % (9.3-17.3); White Blood Count 11.1 T/CUMM (4-12)
[2018-09-14 05:43] LABS: % Iron Saturation 59.9 % (18-50)
[2018-09-14 05:45] LABS: Albumin 2.8 G/DL (3.4-5.0); Bilirubin,Total 0.5 MG/DL (0.2-1.0); Calcium 8.3 MG/DL (8.5-10.1); Osmolality,Calculated 280.7 MOS/KG (273-304); Total Protein 6.2 G/DL (6.4-8.3)
[2018-09-14] MEDS: DEXTROSE 5% NACL 0.9% 1,000 ML IV SCH ×2 (06:48→17:39)
[2018-09-14 07:22] LABS: Band Neutrophils 18 % (0-10); Lymphocytes 12 % (20-55); Metamyelocytes 2 %; Myelocytes 2 %; Nucleated Red Blood Cells 3 (0-5); Promyelocytes 1 %; Segmented Neutrophils 39 % (50-85); Total Cells Counted 100
[2018-09-14 07:23] LABS: Hypochromasia 1+; Microcytosis 1+; Ovalocytes Slight; Platelet Estimate Decreased
[2018-09-14] MEDS: GABAPENTIN 100 MG CAPSULE PO SCH ×2 (08:49→21:14)
[2018-09-14] MEDS: MAGNESIUM HYDROXIDE SUSP 30 ML UDCUP PO PRN (08:52)
[2018-09-14] MEDS ORDERED: GLUCAGON 1 MG VIAL IM PRN (09:04)
[2018-09-14] MEDS ORDERED: DEXTROSE 50% 25 GM/50 ML VIAL IV PRN (09:04)
[2018-09-14] MEDS: BUTALBITAL/ACETAMIN/CAFFEINE 50-325-40 MG TABLET PO PRN (10:14)
[2018-09-14] MEDS: INSULIN REGULAR 100 UNIT/ML SUBCUT SCH ×3 (11:39→21:14)
[2018-09-14] MEDS: ACETAMINOPHEN 325 MG TABLET PO PRN (12:20)
[2018-09-14] MEDS ORDERED: GABAPENTIN 100 MG CAPSULE PO PRN (12:59)
[2018-09-14] MEDS ORDERED: KETOROLAC 30 MG/1 ML VIAL IM ONE (13:02)
[2018-09-14] MEDS ORDERED: diphenhydrAMINE 50 MG/1 ML VIAL IV ONE (13:02)
[2018-09-14] MEDS ORDERED: MORPHINE 4 MG/1 ML VIAL IV ONE (13:03)
[2018-09-14] MEDS: predniSONE 20 MG TABLET PO SCH (13:18)
[2018-09-14] MEDS: cefTRIAXone 1,000 MG in SYRINGE 1 EACH IV SCH (21:13)
[2018-09-14] MEDS: MEGESTROL 400 MG/10 ML UDCUP PO SCH (21:13)
[2018-09-15] MEDS: methylPREDNISolone SOD SUC 40 MG/1 ML VIAL IV SCH ×2 (02:19→14:17)
[2018-09-15 04:31] LABS: Hematocrit 27.3 VOL% (42.0-52.0); Hemoglobin 8.4 GM/DL (14.0-18.0); Mean Corpuscular HGB Conc 30.8 GM/DL (32-36); Mean Corpuscular Volume 88.9 FL (87-102); Mean Platelet Volume 11.7 FL (9.6-12.0); Platelet Count 68 T/CUMM (130-400); Red Blood Count 3.07 MC/CUMM (3.8-5.5); Red Cell Distribution Width 15.3 % (9.3-17.3); White Blood Count 10.2 T/CUMM (4-12)
[2018-09-15 04:52] LABS: Albumin 2.5 G/DL (3.4-5.0); Bilirubin,Total 0.6 MG/DL (0.2-1.0); Calcium 8.4 MG/DL (8.5-10.1); Osmolality,Calculated 280.5 MOS/KG (273-304)
[2018-09-15 05:30] LABS: Atypical Lymphocytes Few; Band Neutrophils 23 % (0-10); Hypochromasia Slight; Lymphocytes 18 % (20-55); Metamyelocytes 6 %; Myelocytes 2 %; Nucleated Red Blood Cells 2 (0-5); Ovalocytes Few; Platelet Estimate Decreased; Segmented Neutrophils 37 % (50-85); Total Cells Counted 100
[2018-09-15] MEDS: DEXTROSE 5% NACL 0.9% 1,000 ML IV SCH (06:25)
[2018-09-15] MEDS: LEVOTHYROXINE 75 MCG TABLET PO SCH (06:26)
[2018-09-15] MEDS: MORPHINE 4 MG/1 ML VIAL IV PRN ×2 (07:38→18:08)
[2018-09-15] MEDS: KETOROLAC 15 MG/1 ML VIAL IV PRN ×2 (07:41→18:08)
[2018-09-15] MEDS: diphenhydrAMINE 50 MG/1 ML VIAL IV PRN ×2 (07:42→18:08)
[2018-09-15] MEDS: INSULIN REGULAR 100 UNIT/ML SUBCUT SCH ×4 (08:05→21:00)
[2018-09-15] MEDS: predniSONE 20 MG TABLET PO SCH (08:07)
[2018-09-15] MEDS: GABAPENTIN 100 MG CAPSULE PO SCH ×2 (08:07→20:15)
[2018-09-15] MEDS: MEGESTROL 400 MG/10 ML UDCUP PO SCH ×2 (08:08→20:15)
[2018-09-15] MEDS: MAGNESIUM HYDROXIDE SUSP 30 ML UDCUP PO PRN (08:08)
[2018-09-15] MEDS: SODIUM CHLOR 0.9% KCL 20 MEQ 20 MEQ/1,000 ML BAG IV SCH ×2 (09:19→20:14)
[2018-09-15] MEDS: cefTRIAXone 1,000 MG in SYRINGE 1 EACH IV SCH (20:15)
[2018-09-16] MEDS: SODIUM CHLOR 0.9% KCL 20 MEQ 20 MEQ/1,000 ML BAG IV SCH ×4 (02:48→23:50)
[2018-09-16] MEDS: methylPREDNISolone SOD SUC 40 MG/1 ML VIAL IV SCH (02:48)
[2018-09-16] MEDS: KETOROLAC 15 MG/1 ML VIAL IV PRN ×2 (02:49→18:40)
[2018-09-16] MEDS: LEVOTHYROXINE 75 MCG TABLET PO SCH (06:08)
[2018-09-16] MEDS: INSULIN REGULAR 100 UNIT/ML SUBCUT SCH ×4 (08:28→20:54)
[2018-09-16] MEDS: MEGESTROL 400 MG/10 ML UDCUP PO SCH ×2 (09:50→20:54)
[2018-09-16] MEDS: GABAPENTIN 100 MG CAPSULE PO SCH ×2 (09:53→20:55)
[2018-09-16] MEDS: predniSONE 20 MG TABLET PO SCH (09:53)
[2018-09-16] MEDS: MAGNESIUM HYDROXIDE SUSP 30 ML UDCUP PO PRN (10:27)
[2018-09-16] MEDS: BUTALBITAL/ACETAMIN/CAFFEINE 50-325-40 MG TABLET PO PRN (10:27)
[2018-09-16] MEDS: methylPREDNISolone SOD SUC 125 MG/2 ML VIAL IV SCH ×2 (16:53→23:50)
[2018-09-16] MEDS: diphenhydrAMINE 50 MG/1 ML VIAL IV PRN (18:42)
[2018-09-16] MEDS: MORPHINE 4 MG/1 ML VIAL IV PRN (18:44)
[2018-09-16] MEDS: cefTRIAXone 1,000 MG in SYRINGE 1 EACH IV SCH (20:54)
[2018-09-17 04:50] LABS: Hematocrit 24.3 VOL% (42.0-52.0); Hemoglobin 7.7 GM/DL (14.0-18.0); Mean Corpuscular HGB Conc 31.7 GM/DL (32-36); Mean Corpuscular Volume 87.1 FL (87-102); Mean Platelet Volume 11.4 FL (9.6-12.0); Red Blood Count 2.79 MC/CUMM (3.8-5.5); Red Cell Distribution Width 15.1 % (9.3-17.3); White Blood Count 6.7 T/CUMM (4-12)
[2018-09-17 05:03] LABS: Platelet Count 37 T/CUMM (130-400)
[2018-09-17 05:13] LABS: Band Neutrophils 6 % (0-10); Hypochromasia 1+; Lymphocytes 15 % (20-55); Myelocytes 2 %; Platelet Estimate Decreased; Segmented Neutrophils 50 % (50-85); Total Cells Counted 100
[2018-09-17 05:14] LABS: Atypical Lymphocytes Few; Microcytosis 1+; Ovalocytes Slight
[2018-09-17 05:17] LABS: Albumin 2.4 G/DL (3.4-5.0); Bilirubin,Total 0.4 MG/DL (0.2-1.0); Calcium 7.8 MG/DL (8.5-10.1); Total Protein 5.4 G/DL (6.4-8.3)
[2018-09-17] MEDS: methylPREDNISolone SOD SUC 125 MG/2 ML VIAL IV SCH ×2 (05:49→15:02)
[2018-09-17] MEDS: LEVOTHYROXINE 75 MCG TABLET PO SCH (05:50)
[2018-09-17] MEDS: GABAPENTIN 100 MG CAPSULE PO SCH ×2 (08:31→21:58)
[2018-09-17] MEDS: MEGESTROL 400 MG/10 ML UDCUP PO SCH ×2 (08:32→21:58)
[2018-09-17] MEDS: INSULIN REGULAR 100 UNIT/ML SUBCUT SCH ×4 (08:33→21:57)
[2018-09-17] MEDS: SODIUM CHLOR 0.9% KCL 20 MEQ 20 MEQ/1,000 ML BAG IV SCH ×2 (08:35→18:00)
[2018-09-17] MEDS: predniSONE 50 MG TABLET PO SCH ×2 (12:15→21:58)
[2018-09-17] MEDS ORDERED: methylPREDNISolone SOD SUC 125 MG/2 ML VIAL IV SCH (15:00)
[2018-09-17] MEDS: cefTRIAXone 1,000 MG in SYRINGE 1 EACH IV SCH (21:58)
[2018-09-18 04:27] LABS: Hematocrit 24.8 VOL% (42.0-52.0); Hemoglobin 7.4 GM/DL (14.0-18.0); Mean Corpuscular HGB Conc 29.8 GM/DL (32-36); Mean Corpuscular Volume 91.5 FL (87-102); Mean Platelet Volume 11.3 FL (9.6-12.0); Platelet Count 40 T/CUMM (130-400); Red Blood Count 2.71 MC/CUMM (3.8-5.5); Red Cell Distribution Width 15.2 % (9.3-17.3); White Blood Count 8.4 T/CUMM (4-12)
[2018-09-18 05:08] LABS: Atypical Lymphocytes Few; Band Neutrophils 7 % (0-10); Hypochromasia 1+; Lymphocytes 15 % (20-55); Microcytosis 1+; Nucleated Red Blood Cells 1 (0-5); Platelet Estimate Decreased; Segmented Neutrophils 42 % (50-85); Total Cells Counted 100
[2018-09-18] MEDS: LEVOTHYROXINE 75 MCG TABLET PO SCH (06:07)
[2018-09-18 08:51] LABS: Alanine Aminotransferase 12 U/L (16-61); Albumin 2.4 G/DL (3.4-5.0); Alkaline Phosphatase 37 U/L (45-117); Aspartate Amino Transferase 6 U/L (0-37); Bilirubin,Total < 0.39 MG/DL (0.2-1.0); Blood Urea Nitrogen 26 MG/DL (7-18); Calcium 7.5 MG/DL (8.5-10.1); Ferritin 3111.5 ng/ml (26-388); Glucose 201 MG/DL (74-106); Osmolality,Calculated 287.5 MOS/KG (273-304); Total Protein 5.1 G/DL (6.4-8.3)
[2018-09-18] MEDS: INSULIN REGULAR 100 UNIT/ML SUBCUT SCH ×4 (08:59→22:04)
[2018-09-18] MEDS: predniSONE 50 MG TABLET PO SCH ×2 (09:00→22:05)
[2018-09-18] MEDS: GABAPENTIN 100 MG CAPSULE PO SCH ×2 (09:00→22:05)
[2018-09-18] MEDS: MEGESTROL 400 MG/10 ML UDCUP PO SCH ×2 (09:00→21:12)
[2018-09-18] MEDS: MORPHINE 4 MG/1 ML VIAL IV PRN ×2 (11:42→21:11)
[2018-09-18] MEDS: diphenhydrAMINE 50 MG/1 ML VIAL IV PRN ×2 (11:50→21:12)
[2018-09-18] MEDS: KETOROLAC 15 MG/1 ML VIAL IV PRN ×2 (11:51→21:12)
[2018-09-18] MEDS: SODIUM CHLOR 0.9% KCL 20 MEQ 20 MEQ/1,000 ML BAG IV SCH ×3 (11:57→22:05)
[2018-09-18] MEDS: cefTRIAXone 1,000 MG in SYRINGE 1 EACH IV SCH (21:12)
[2018-09-19] MEDS: SODIUM CHLOR 0.9% KCL 20 MEQ 20 MEQ/1,000 ML BAG IV SCH ×2 (04:05→05:04)
[2018-09-19] MEDS: LEVOTHYROXINE 75 MCG TABLET PO SCH (06:04)
[2018-09-19] MEDS: predniSONE 50 MG TABLET PO SCH (08:49)
[2018-09-19] MEDS: INSULIN REGULAR 100 UNIT/ML SUBCUT SCH ×2 (08:49→12:22)
[2018-09-19] MEDS: MEGESTROL 400 MG/10 ML UDCUP PO SCH (08:49)
[2018-09-19] MEDS: GABAPENTIN 100 MG CAPSULE PO SCH (08:49)
[2018-09-19] MEDS: diphenhydrAMINE 50 MG/1 ML VIAL IV PRN (08:50)
[2018-09-19] MEDS: MORPHINE 4 MG/1 ML VIAL IV PRN (08:50)
[2018-09-19] MEDS: KETOROLAC 15 MG/1 ML VIAL IV PRN (08:51)
[2018-09-19 11:55] VITALS: BP 123/72
[2018-09-20] MEDS ORDERED: predniSONE 50 MG TABLET PO SCH (09:00)
== END 2018-09-19 13:48 | disposition hospice, home (50) | DRG 125 ==
LOC: N.ED 09:11 → N.EDINP 12:27 → INTOOBSV 12:27 → SUATTDRO 15:05 → N.4E 15:45 → SUATTDRO 09-13 09:53
PROVIDERS: ADMIT Internal Medicine; ATTEND Internal Medicine

== ENCOUNTER 2018-09-21 17:36 | Observation (INO) ==
[2018-09-21] MEDS ORDERED: SODIUM CHLORIDE 0.9% 1,000 ML IV STA (18:04)
[2018-09-21] MEDS ORDERED: ONDANSETRON 4 MG/2 ML VIAL IV STA (18:04)
[2018-09-21] MEDS ORDERED: diphenhydrAMINE 50 MG/1 ML VIAL IV STA (18:08)
[2018-09-21] MEDS ORDERED: KETOROLAC 30 MG/1 ML VIAL IV STA (18:08)
[2018-09-21] MEDS ORDERED: MORPHINE 4 MG/1 ML VIAL IV STA (18:08)
[2018-09-21 18:15] LABS: Basophils # 0.1 10*3/uL (0.0-0.2); Basophils % 0.2 % (0.0-0.8); Eosinophils % 0.1 % (0.00-10.9); Hematocrit 30.8 VOL% (42.0-52.0); Hemoglobin 9.9 GM/DL (14.0-18.0); Immature Granulocytes % 5.4 %; Immature Granulocytes Absolute 1.92 #; Lymphocytes # 3.9 10*3/uL (1.4-4.0); Mean Corpuscular HGB Conc 32.1 GM/DL (32-36); Mean Corpuscular Volume 86.8 FL (87-102); Mean Platelet Volume 12.1 FL (9.6-12.0); Monocytes % 42.2 % (1.7-12.7); NRBC # 0.12 10*3/uL; Neutrophils % 41.1 % (38.7-73.9); Platelet Count 72 T/CUMM (130-400); Red Blood Count 3.55 MC/CUMM (3.8-5.5); Red Cell Distribution Width 15.3 % (9.3-17.3); White Blood Count 35.7 T/CUMM (4-12)
[2018-09-21 18:32] LABS: Albumin 3.1 G/DL (3.4-5.0); Bilirubin,Total 0.5 MG/DL (0.2-1.0); Calcium 8.7 MG/DL (8.5-10.1); Total Protein 6.9 G/DL (6.4-8.3)
[2018-09-21 19:14] LABS: Lymphocytes 18 % (20-55); Segmented Neutrophils 36 % (50-85); Total Cells Counted 100
[2018-09-21 19:15] LABS: Elliptocytes Few; Microcytosis Slight; Platelet Estimate Decreased
[2018-09-21] MEDS ORDERED: MORPHINE 10 MG/5 ML UDCUP PO PRN (20:13)
[2018-09-21] MEDS ORDERED: MORPHINE 4 MG/1 ML VIAL IV PRN (20:13)
[2018-09-21] MEDS ORDERED: PROMETHAZINE 25 MG/1 ML VIAL IM PRN (20:13)
[2018-09-21] MEDS ORDERED: ONDANSETRON 4 MG/2 ML VIAL IV PRN (20:13)
[2018-09-21] MEDS ORDERED: LORazepam 0.5 MG TABLET PO SCH (21:00)
[2018-09-21] MEDS ORDERED: BUTALBITAL/ACETAMIN/CAFFEINE 50-325-40 MG TABLET PO PRN (21:13)
[2018-09-21] MEDS ORDERED: MAGNESIUM HYDROXIDE SUSP 30 ML UDCUP PO PRN (21:13)
[2018-09-21] MEDS: SODIUM CHLORIDE 0.9% 1,000 ML IV SCH (21:47)
[2018-09-21] MEDS: KETOROLAC 15 MG/1 ML VIAL IV SCH (22:09)
[2018-09-21] MEDS: methylPREDNISolone SOD SUC 40 MG/1 ML VIAL IV SCH (22:10)
[2018-09-21] MEDS: cefTRIAXone 1,000 MG in SYRINGE 1 EACH IV SCH (22:11)
[2018-09-21] MEDS: VANCOMYCIN INJ 1,000 MG in SODIUM CHLORIDE 0.9% 250 ML IV SCH (22:15)
[2018-09-22] MEDS: KETOROLAC 15 MG/1 ML VIAL IV SCH ×4 (02:03→21:08)
[2018-09-22] MEDS: methylPREDNISolone SOD SUC 40 MG/1 ML VIAL IV SCH ×3 (06:37→21:10)
[2018-09-22] MEDS: LEVOTHYROXINE 75 MCG TABLET PO SCH (06:58)
[2018-09-22] MEDS: SODIUM CHLORIDE 0.9% 1,000 ML IV SCH ×2 (08:18→19:12)
[2018-09-22] MEDS: GABAPENTIN 100 MG CAPSULE PO SCH ×2 (08:19→21:08)
[2018-09-22] MEDS: MEGESTROL 400 MG/10 ML UDCUP PO SCH ×2 (08:19→21:08)
[2018-09-22] MEDS ORDERED: predniSONE 20 MG TABLET PO SCH (09:00)
[2018-09-22] MEDS: cefTRIAXone 1,000 MG in SYRINGE 1 EACH IV SCH ×2 (10:30→21:11)
[2018-09-22] MEDS: VANCOMYCIN INJ 1,000 MG in SODIUM CHLORIDE 0.9% 250 ML IV SCH ×2 (10:30→21:14)
[2018-09-22] MEDS ORDERED: fentaNYL 25 MCG/HR PATCH TRANSDERM SCH (14:30)
[2018-09-23] MEDS: KETOROLAC 15 MG/1 ML VIAL IV SCH ×4 (03:04→21:27)
[2018-09-23] MEDS: methylPREDNISolone SOD SUC 40 MG/1 ML VIAL IV SCH ×2 (04:42→13:48)
[2018-09-23 05:38] LABS: Hematocrit 19.8 VOL% (42.0-52.0); Mean Corpuscular HGB Conc 31.8 GM/DL (32-36); Mean Corpuscular Volume 86.8 FL (87-102); Mean Platelet Volume 13.5 FL (9.6-12.0); Red Blood Count 2.28 MC/CUMM (3.8-5.5); Red Cell Distribution Width 15.1 % (9.3-17.3); White Blood Count 11.1 T/CUMM (4-12)
[2018-09-23 05:42] LABS: Hemoglobin 6.3 GM/DL (14.0-18.0); Platelet Count 35 T/CUMM (130-400)
[2018-09-23] MEDS: LEVOTHYROXINE 75 MCG TABLET PO SCH (05:53)
[2018-09-23] MEDS ORDERED: SODIUM CHLORIDE 0.9% 1,000 ML IV PRN (06:00)
[2018-09-23 06:05] LABS: Band Neutrophils 3 % (0-10); Lymphocytes 19 % (20-55); Nucleated Red Blood Cells 1 (0-5); Platelet Estimate Decreased; Segmented Neutrophils 57 % (50-85); Total Cells Counted 100
[2018-09-23 06:06] LABS: Hypochromasia 1+; Microcytosis Slight; Ovalocytes Slight
[2018-09-23 06:14] LABS: Albumin 2.2 G/DL (3.4-5.0); Bilirubin,Total 0.4 MG/DL (0.2-1.0); Calcium 7.6 MG/DL (8.5-10.1); Osmolality,Calculated 296.4 MOS/KG (273-304); Total Protein 5.1 G/DL (6.4-8.3)
[2018-09-23] MEDS: SODIUM CHLORIDE 0.9% 1,000 ML IV SCH ×2 (07:45→16:00)
[2018-09-23] MEDS: MEGESTROL 400 MG/10 ML UDCUP PO SCH (09:19)
[2018-09-23] MEDS: GABAPENTIN 100 MG CAPSULE PO SCH (09:19)
[2018-09-23] MEDS: cefTRIAXone 1,000 MG in SYRINGE 1 EACH IV SCH (09:29)
[2018-09-23] MEDS: VANCOMYCIN INJ 1,000 MG in SODIUM CHLORIDE 0.9% 250 ML IV SCH (10:13)
[2018-09-23 19:43] LABS: Hematocrit 22.5 VOL% (42.0-52.0); Hemoglobin 7.2 GM/DL (14.0-18.0)
[2018-09-23 21:08] VITALS: BP 143/83
== END 2018-09-23 20:33 | disposition home health service (06) ==
LOC: N.EDINP 17:36 → N.ED 17:36 → N.3E 21:02
PROVIDERS: ADMIT Family Medicine; ATTEND Family Medicine